=== PATIENT | female | born 1935 | race Caucasian/White ===

== ENCOUNTER 2018-12-01 09:50 | Emergency (ER) | payer MEDICARE, OTHER ==
[2018-12-01] MEDS ORDERED: Sodium Chloride 0.9% 10 ML Syringe FLUSH PRN (10:10)
--- NOTE | 2018-12-01 10:11 | EDM.PDOC ---
ED HPI GENERAL MEDICAL PROBLEM - General Chief Complaint: Chest Pain Stated Complaint: CHEST PAIN Time Seen by Provider: 12/01/18 10:01 Source of Information: Reports: Patient, RN, RN Notes Reviewed History Limitations: Reports: No Limitations - History of Present Illness INITIAL COMMENTS - FREE TEXT/NARRATIVE: Patient presents to the ED at [facility] complaining of epigastric pain. She states the pain started last . Patient states her symptoms seem to get worse after she used some mouthwash yesterday. The pain has progressively gotten worse since last night. She denies any radiation of the pain. She does not have any SOB. Denies any N/V/D. No focal neurological complaints. She has not taken any medications at home for her symptoms. She states the pain feels like heartburn/gastritis. She was seen in the clinic yesterday and thought to be having some sort of allergy reaction. She was not treated in the clinic nor did she have any workup. Onset Date: 11/26/18 Mid-Sternal Chest Pain Score (Numeric/FACES): 10 - Related Data Allergies Allergy/AdvReac Type Severity Reaction Status Date / Time cefuroxime axetil Allergy Other Verified 12/01/18 10:17 [From Ceftin] gemfibrozil [From Lopid] Allergy Other Verified 12/01/18 10:17 Penicillins Allergy Other Verified 12/01/18 10:17 simvastatin [From Zocor] Allergy Other Verified 12/01/18 10:17 tetanus toxoid, adsorbed Allergy Other Verified 12/01/18 10:17 Home Meds: Home Meds Acetaminophen with Codeine [Tylenol with Codeine #3 Tablet] 1 - 2 tab PO DAILY PRN 03/23/15 [History] Cholecalciferol (Vitamin D3) [Vitamin D3] 2,000 units PO DAILY 03/23/15 [History ] Fish Oil/[place]-3 Fatty Acids [Fish Oil 1,000 MG] 1,000 mg PO DAILY 03/23/15 [ History] Hydrochlorothiazide 1 tab PO DAILY 03/23/15 [History] Multivitamin with Minerals [Multiple Vitamin] 1 tab PO DAILY 03/23/15 [History] Naproxen Sodium [Aleve] 1 tab PO DAILY PRN 03/23/15 [History] Propranolol [Inderal] 1 tab PO BID 03/23/15 [History] amLODIPine [Norvasc] 1.5 tab PO DAILY 03/23/15 [History] glyBURIDE/Metformin HCl [Glucovance 5-500 MG] 2 tab PO BID 03/23/15 [History] Aspirin [Halfprin] 81 mg PO BRK 03/29/15 [History] Past Medical History Other HEENT History: VITREOUS ETACHMENT, DRY EYE, MYOPIA, PRESBYOPIA Cardiovascular History: Reports: Hypertension Other Cardiovascular History: SYSTOLIC MURMUR, VARICOSE VIENS Other Gastrointestinal History: ABDOMINAL PAIN Other Genitourinary History: PROTEINURIA Other Musculoskeletal History: RT LEG PAIN, WRIST PAIN, GANGLION TENDON SHEATH OF RIGHT INDEX FINGER, CARPAL TUNNEL SYNDROME Other Endocrine/Metabolic History: MALAISE AND FATIGUE Other Dermatologic History: DERMATOCHALASIS, ACTINIC KERATOSIS - Past Surgical History HEENT Surgical History: Reports: Cataract Surgery ED ROS GENERAL - Review of Systems Review Of Systems: See Below Constitutional: Denies: Fever, Chills Respiratory: Denies: Shortness of Breath, Cough Cardiovascular: Reports: Chest Pain. Denies: Edema, Palpitations GI/Abdominal: Reports: No Symptoms Skin: Reports: No Symptoms Neurological: Reports: No Symptoms ED EXAM, GENERAL - Physical Exam Exam: See Below Exam Limited By: No Limitations General Appearance: Alert, No Apparent Distress Respiratory/Chest: No Respiratory Distress, Lungs Clear, Normal Breath Sounds Cardiovascular: Normal Peripheral Pulses, Regular Rate, Rhythm Peripheral Pulses: 2+: Radial (L), Radial (R) GI/Abdominal: Normal Bowel Sounds, Soft, Non-Tender Neurological: Alert, Oriented Skin Exam: Warm, Dry, Intact, Normal Color EKG INTERPRETATION EKG Date: 12/01/18 Time: 09:51 Rhythm: NSR Rate (Beats/Min): 87 [place]: Normal P-Wave: Present QRS: LBBB ST-T: Normal QT: Normal HI/PQ Interval: 0.20 Comparison: Change From Previous EKG EKG Interpretation Comments: 1. Sinus Rhythm 2. LBBB Course - Vital Signs Last Recorded V/S: Last Vital Signs Temp 35.5 C 12/01/18 09:55 Pulse 83 12/01/18 09:55 Resp 18 12/01/18 09:55 BP 168/87 H 12/01/18 11:03 Pulse Ox 99 12/01/18 09:55 - Orders/Labs/Meds Orders: Active Orders 24 hr Category Date Time Status EKG 12 Lead [EKG Documentation Completion] [RC] STAT Care 12/01/18 10:10 Active Sodium Chloride 0.9% [Saline Flush] Med 12/01/18 10:10 Active 10 ml FLUSH ASDIRECTED PRN Peripheral IV Insertion Adult [OM.PC] Routine Oth 12/01/18 10:10 Ordered Medication Orders Sodium Chloride (Saline Flush) 10 ml FLUSH ASDIRECTED PRN PRN Reason: Keep Vein Open Labs: Laboratory Tests 12/01/18 12/01/18 12/01/18 Range/Units 10:12 10:12 10:20 WBC 7.8 (4.0-10.0) x10^3/uL RBC 4.25 (4.00-5.50) x10^6/uL Hgb 12.6 (12.0-16.0) g/dL Hct 39.1 (33.0-47.0) % MCV 92.0 (78.0-93.0) fL MCH 29.6 (26.0-32.0) pg MCHC 32.2 (32.0-36.0) g/dL RDW Coeff of Johnathan 12.9 (10.0-15.0) % Plt Count 221 (130-400) x10^3/uL Neut % (Auto) 64.3 (50.0-80.0) % Lymph % (Auto) 23.7 L (25.0-50.0) % [place] % (Auto) 10.7 (2.0-11.0) % Eos % (Auto) 1.0 (0.0-4.0) % Baso % (Auto) 0.3 (0.2-1.2) % Sodium 136 (136-145) mmol/L Potassium 4.1 (3.5-5.1) mmol/L Chloride 98 (98-107) mmol/L Carbon Dioxide 23 (21-32) mmol/L Anion Gap 19.1 (10-20) mmol/L BUN 27 H (7-18) mg/dL Creatinine 1.2 H (0.55-1.02) mg/dL Est Cr Clr Drug Dosing 30.67 mL/min Estimated GFR (MDRD) 43 Glucose 274 H (74-106) mg/dL Calcium 9.1 (8.5-10.1) mg/dL Corrected Calcium 9.66 (8.5-10.1) mg/dL Magnesium 1.4 L (1.8-2.4) mg/dL Total Bilirubin 0.8 (0.2-1.0) mg/dL AST 27 (15-37) U/L ALT 17 (14-59) U/L Alkaline Phosphatase 65 (46-116) U/L Creatine Kinase 134 (26-192) U/L POC Troponin I 1.05 H* (0.00-0.08) ng/mL Total Protein 7.6 (6.4-8.2) g/dL Albumin 3.3 L (3.4-5.0) g/dL Globulin 4.3 Albumin/Globulin Ratio 0.77 POC Result Comm See comment Meds: Medications Generic Name Dose Route Start Last Admin Trade Name Freq PRN Reason Stop Dose Admin Sodium Chloride 10 ml 12/01/18 10:10 Saline Flush FLUSH ASDIRECTED PRN Keep Vein Open Discontinued Medications Generic Name Dose Route Start Last Admin Trade Name Freq PRN Reason Stop Dose Admin Al Hydroxide/Mg Hydroxide 30 ml 12/01/18 10:10 12/01/18 10:31 Gi Cocktail PO 12/01/18 10:11 30 ml ONETIME ONE Administration Aspirin 324 mg 12/01/18 10:50 12/01/18 10:45 Aspirin PO 12/01/18 10:51 324 mg ONETIME ONE Administration Clopidogrel Bisulfate 600 mg 12/01/18 10:49 12/01/18 11:04 Plavix PO 12/01/18 10:50 600 mg ONETIME ONE Administration Heparin Sodium (Porcine) 4,000 units 12/01/18 10:47 12/01/18 11:04 Heparin Sodium IVPUSH 12/01/18 10:48 4,000 units ONETIME ONE Administration Morphine Sulfate 2 mg 12/01/18 10:49 12/01/18 11:06 Morphine IVPUSH 12/01/18 10:50 Not Given ONETIME ONE Nitroglycerin 0.4 mg 12/01/18 10:48 12/01/18 11:03 Nitrostat SL 12/01/18 10:49 0.4 mg ONETIME ONE Administration Nitroglycerin 0.4 mg 12/01/18 10:48 12/01/18 10:48 Nitrostat SL 12/01/18 10:49 0.4 mg ONETIME ONE Administration Departure - Departure Time of Disposition: 11:10 Disposition: DC/Tfer to Acute Hospital 02 Reason for Transfer *Q: Other Condition: Good Clinical Impression: ACS (acute coronary syndrome) Forms: Interfacility Transfer [facility] ED Communication - ED Communication Date/Time Date: 12/01/18 Time Called: 10:41 - Discussed Case With (1) Discussed Case With (1): Admitting Provider (Dr. Dawson, Cardiology) - Conversation Summary Admitting Provider Agreed to Patient's Admission: Yes Patient Aware of Amendments fo Care Plan: Yes - Problem List Review Problem List Initiated/Reviewed/Updated: Yes - My Orders Last 24 Hours: My Active Orders 12/01/18 10:10 EKG 12 Lead [EKG Documentation Completion] [RC] STAT Sodium Chloride 0.9% [Saline Flush] 10 ml FLUSH ASDIRECTED PRN Peripheral IV Insertion Adult [OM.PC] Routine - Assessment/Plan Last 24 Hours: My Active Orders 12/01/18 10:10 EKG 12 Lead [EKG Documentation Completion] [RC] STAT Sodium Chloride 0.9% [Saline Flush] 10 ml FLUSH ASDIRECTED PRN Peripheral IV Insertion Adult [OM.PC] Routine Assessment:: ACS Plan: Case discussed with Dr. Dawson, Cardiology. It if felt this is not a STEMI but more ACS. Given symptoms and positive Troponin, the patient will be transferred to for further workup and treatment. Patient will be sent ALS ground. Patient agrees with transfer and wishes to proceed.
[2018-12-01] MEDS: GI Cocktail Oral Solution 30 ML PO ONE (10:31)
[2018-12-01] MEDS: Nitroglycerin 0.4 MG Tab.SL SL ONE ×2 (10:42→10:48)
--- NOTE | 2018-12-01 10:42 | CR ---
[id number] RAD/RAD Chest PA And Lateral EXAM: RAD Chest PA And Lateral INDICATION: CHEST PAIN. COMPARISON: None. DISCUSSION: Cardiomediastinal silhouette is normal in size and contour. No infiltrate, pneumothorax, or edema. Small amount of fluid along the right minor fissure. Generalized osseous demineralization IMPRESSION: No acute cardiopulmonary abnormality. Giovanny Schmidt DO 12/01/18 1041 Thank you for allowing us to participate in the care of your patient.
[2018-12-01 10:43] LABS: ANION GAP 19.1 mmol/L (10-20)
[2018-12-01] MEDS: Aspirin 81 MG Tab.Chew PO ONE (10:45)
[2018-12-01] MEDS: Clopidogrel 75 MG Tab PO ONE (11:04)
[2018-12-01] MEDS: Heparin Sodium 5,000 Units/ML Vial IVPUSH ONE (11:04)
[2018-12-01] MEDS: Morphine 2 MG/ML Syringe IVPUSH ONE (11:06)
[2018-12-01 12:16] VITALS: BP 149/72
== END 2018-12-01 11:15 | disposition short-term general hospital (02) ==
LOC: VM.ED 09:50
DX: I24.9 Acute ischemic heart disease, unspecified (principal); Z88.1 Allergy status to other antibiotic agents; Z88.0 Allergy status to penicillin; Z88.7 Allergy status to serum and vaccine; Z79.899 Other long term (current) drug therapy
CPT/HCPCS: 36415; 71046; 80053; 82550; 83735; 84484; 85025; 93005; 96374; 99285; A9270; J1644

== ENCOUNTER 2018-12-12 12:10 | Emergency (ER) | payer MEDICARE, OTHER ==
[2018-12-12] MEDS ORDERED: Ondansetron 4 MG/2 ML SDV IVPUSH ONE ×2 (12:36→16:01)
--- NOTE | 2018-12-12 12:42 | EDM.PDOC ---
ED HPI GENERAL MEDICAL PROBLEM - General Chief Complaint: Chest Pain Stated Complaint: CHEST PAIN Time Seen by Provider: 12/12/18 12:33 Source of Information: Reports: Patient, EMS History Limitations: Reports: No Limitations - History of Present Illness INITIAL COMMENTS - FREE TEXT/NARRATIVE: Patient was initially seen by EMS earlier today for complaints of nausea, chest pain but had a bowel movement which resolved the pain. She refused to come into the ER at that time. Later this morning she called again with chest pain. She reports that the chest pain was only when she was vomiting. Then it was gone. She denies chest pain or pressure at this time. She denies current pain. Was seen in [place] last week and stents were placed. On Brillinta. Denies headache, blood in urine or stool. She does endorse chest pain when actively vomiting. History of DM II. Medicine changes made in [place]. 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 Onset: Today, Unknown/Unsure Duration: Intermittent Location: Reports: Chest Quality: Reports: Ache Severity: Moderate Improves with: Reports: None Worsens with: Reports: None Context: Reports: Activity Associated Symptoms: Reports: Chest Pain - Related Data Allergies Allergy/AdvReac Type Severity Reaction Status Date / Time cefuroxime axetil Allergy Other Verified 12/01/18 10:17 [From Ceftin] gemfibrozil [From Lopid] Allergy Other Verified 12/01/18 10:17 Penicillins Allergy Other Verified 12/01/18 10:17 simvastatin [From Zocor] Allergy Other Verified 12/01/18 10:17 tetanus toxoid, adsorbed Allergy Other Verified 12/01/18 10:17 Home Meds: Home Meds Acetaminophen with Codeine [Tylenol with Codeine #3 Tablet] 1 - 2 tab PO DAILY PRN 03/23/15 [History] Cholecalciferol (Vitamin D3) [Vitamin D3] 2,000 units PO DAILY 03/23/15 [History ] Fish Oil/[place]-3 Fatty Acids [Fish Oil 1,000 MG] 1,000 mg PO DAILY 03/23/15 [ History] Multivitamin with Minerals [Multiple Vitamin] 1 tab PO DAILY 03/23/15 [History] Aspirin [Halfprin] 81 mg PO BRK 03/29/15 [History] Carvedilol 6.25 mg PO BID 12/12/18 [History] Furosemide 60 mg PO DAILY 12/12/18 [History] Losartan Potassium 25 mg PO DAILY 12/12/18 [History] Nitroglycerin 0.4 mg PO ASDIRECTED PRN 12/12/18 [History] Omeprazole 20 mg PO DAILY 12/12/18 [History] Rosuvastatin Calcium 20 mg PO BEDTIME 12/12/18 [History] Ticagrelor [Brilinta] 90 mg PO BID 12/12/18 [History] metFORMIN HCl [Metformin HCl ER] 500 mg PO DAILY 12/12/18 [History] Past Medical History Other HEENT History: VITREOUS ETACHMENT, DRY EYE, MYOPIA, PRESBYOPIA Cardiovascular History: Reports: Hypertension Other Cardiovascular History: SYSTOLIC MURMUR, VARICOSE VIENS Other Gastrointestinal History: ABDOMINAL PAIN Other Genitourinary History: PROTEINURIA Other Musculoskeletal History: RT LEG PAIN, WRIST PAIN, GANGLION TENDON SHEATH OF RIGHT INDEX FINGER, CARPAL TUNNEL SYNDROME Other Endocrine/Metabolic History: MALAISE AND FATIGUE Other Dermatologic History: DERMATOCHALASIS, ACTINIC KERATOSIS - Past Surgical History HEENT Surgical History: Reports: Cataract Surgery ED ROS GENERAL - Review of Systems Review Of Systems: See Below Constitutional: Reports: No Symptoms HEENT: Reports: No Symptoms Respiratory: Reports: No Symptoms Cardiovascular: Reports: No Symptoms Endocrine: Reports: No Symptoms GI/Abdominal: Reports: No Symptoms : Reports: No Symptoms Musculoskeletal: Reports: No Symptoms Skin: Reports: No Symptoms Neurological: Reports: No Symptoms Psychiatric: Reports: No Symptoms Hematologic/Lymphatic: Reports: No Symptoms Immunologic: Reports: No Symptoms ED EXAM, GENERAL - Physical Exam Exam: See Below Exam Limited By: No Limitations General Appearance: Alert, WD/WN, No Apparent Distress Eye Exam: Bilateral Eye: EOMI, Normal Inspection, PERRL Ears: Normal TMs Throat/Mouth: Normal Inspection, Normal Lips, Normal Teeth, Normal Gums, Normal Oropharynx, Normal Voice, No Airway Compromise Head: Atraumatic, Normocephalic Neck: Normal Inspection, Supple, Non-Tender, Full Range of Motion Respiratory/Chest: No Respiratory Distress, Lungs Clear, Normal Breath Sounds, No Accessory Muscle Use, Chest Non-Tender Cardiovascular: Normal Peripheral Pulses, Regular Rate, Rhythm, No Edema, No Gallop, No JVD, No Rub, Systolic Murmur Peripheral Pulses: 2+: Posterior Tibial (L), Posterior Tibial (R), Dorsalis Pedis (L), Dorsalis Pedis (R) GI/Abdominal: Normal Bowel Sounds, Soft, Non-Tender, No Organomegaly, No Distention, No Abnormal Bruit, No Mass Back Exam: Normal Inspection, Full Range of Motion, NT Extremities: Normal Inspection, Normal Range of Motion, Non-Tender, Normal Capillary Refill, No Pedal Edema Neurological: Alert, Oriented, CN II-XII Intact, Normal Cognition, Normal Gait, Normal Reflexes, No Motor/Sensory Deficits Psychiatric: Normal Affect, Normal Mood Skin Exam: Warm, Dry, Intact, Normal Color, No Rash Lymphatic: No Adenopathy Course - Vital Signs Last Recorded V/S: Last Vital Signs Temp 36.9 C 12/12/18 12:10 Pulse 93 12/12/18 12:55 Resp 15 12/12/18 12:55 BP 119/50 L 12/12/18 12:55 Pulse Ox 95 12/12/18 12:55 - Orders/Labs/Meds Orders: Active Orders 24 hr Category Date Time Status EKG Documentation Completion [RC] STAT Care 12/12/18 12:36 Active CULTURE URINE [RM] Stat Lab 12/12/18 14:12 Ordered Labs: Laboratory Tests 12/12/18 12/12/18 12/12/18 Range/Units 12:50 12:50 12:50 WBC 13.3 H (4.0-10.0) x10^3/uL RBC 3.17 L (4.00-5.50) x10^6/uL Hgb 9.3 L D (12.0-16.0) g/dL Hct 29.8 L (33.0-47.0) % MCV 94.0 H (78.0-93.0) fL MCH 29.3 (26.0-32.0) pg MCHC 31.2 L (32.0-36.0) g/dL RDW Coeff of Johnathan 15.2 H (10.0-15.0) % Plt Count 325 D (130-400) x10^3/uL PT 10.7 (9.6-11.4) SEC INR 1.0 L (2.0-3.5) APTT 21.8 (21.3-33.5) SEC Sodium 136 (136-145) mmol/L Potassium 3.7 (3.5-5.1) mmol/L Chloride 95 L (98-107) mmol/L Carbon Dioxide 26 (21-32) mmol/L Anion Gap 18.7 (10-20) mmol/L BUN 23 H (7-18) mg/dL Creatinine 1.3 H (0.55-1.02) mg/dL Est Cr Clr Drug Dosing TNP Estimated GFR (MDRD) 39 Glucose 288 H (74-106) mg/dL Calcium 9.0 (8.5-10.1) mg/dL Corrected Calcium 9.96 (8.5-10.1) mg/dL Phosphorus 2.8 (2.6-4.7) mg/dL Magnesium 1.7 L (1.8-2.4) mg/dL Total Bilirubin 3.5 H (0.2-1.0) mg/dL AST 123 H (15-37) U/L ALT 64 H (14-59) U/L Alkaline Phosphatase 344 H (46-116) U/L Troponin I 0.335 H* (<=0.056) ng/mL Total Protein 7.6 (6.4-8.2) g/dL Albumin 2.8 L (3.4-5.0) g/dL Globulin 4.8 Albumin/Globulin Ratio 0.58 Urine Color (YELLOW) Urine Appearance (CLEAR) Urine pH (5.0-8.0) Ur Specific [place] Urine Protein (NEGATIVE) mg/dL Urine Glucose (UA) (NEGATIVE) mg/dL Urine Ketones (NEGATIVE) mg/dL Urine Occult Blood (NEGATIVE) Urine Nitrite (NEGATIVE) Urine Bilirubin (NEGATIVE) Urine Urobilinogen (0.2) EU/dL Ur Leukocyte Esterase (NEGATIVE) Urine RBC (NOT SEEN) /HPF Urine WBC (NOT SEEN) /HPF Ur Squamous Epith Cells (NEGATIVE) /HPF Urine Bacteria (NEGATIVE) /HPF Urine Mucus (NEGATIVE) /LPF 12/12/18 Range/Units 12:55 WBC (4.0-10.0) x10^3/uL RBC (4.00-5.50) x10^6/uL Hgb (12.0-16.0) g/dL Hct (33.0-47.0) % MCV (78.0-93.0) fL MCH (26.0-32.0) pg MCHC (32.0-36.0) g/dL RDW Coeff of Johnathan (10.0-15.0) % Plt Count (130-400) x10^3/uL PT (9.6-11.4) SEC INR (2.0-3.5) APTT (21.3-33.5) SEC Sodium (136-145) mmol/L Potassium (3.5-5.1) mmol/L Chloride (98-107) mmol/L Carbon Dioxide (21-32) mmol/L Anion Gap (10-20) mmol/L BUN (7-18) mg/dL Creatinine (0.55-1.02) mg/dL Est Cr Clr Drug Dosing Estimated GFR (MDRD) Glucose (74-106) mg/dL Calcium (8.5-10.1) mg/dL Corrected Calcium (8.5-10.1) mg/dL Phosphorus (2.6-4.7) mg/dL Magnesium (1.8-2.4) mg/dL Total Bilirubin (0.2-1.0) mg/dL AST (15-37) U/L ALT (14-59) U/L Alkaline Phosphatase (46-116) U/L Troponin I (<=0.056) ng/mL Total Protein (6.4-8.2) g/dL Albumin (3.4-5.0) g/dL Globulin Albumin/Globulin Ratio Urine Color Yellow (YELLOW) Urine Appearance Slightly cloudy H (CLEAR) Urine pH 5.5 (5.0-8.0) Ur Specific [place] 1.015 Urine Protein Negative (NEGATIVE) mg/dL Urine Glucose (UA) Negative (NEGATIVE) mg/dL Urine Ketones Negative (NEGATIVE) mg/dL Urine Occult Blood Negative (NEGATIVE) Urine Nitrite Negative (NEGATIVE) Urine Bilirubin Negative (NEGATIVE) Urine Urobilinogen 1.0 (0.2) EU/dL Ur Leukocyte Esterase Trace H (NEGATIVE) Urine RBC 0-5 (NOT SEEN) /HPF Urine WBC 5-10 H (NOT SEEN) /HPF Ur Squamous Epith Cells Few H (NEGATIVE) /HPF Urine Bacteria Few H (NEGATIVE) /HPF Urine Mucus Rare H (NEGATIVE) /LPF Meds: Medications Discontinued Medications Generic Name Dose Route Start Last Admin Trade Name Freq PRN Reason Stop Dose Admin Ondansetron HCl 4 mg 12/12/18 12:36 12/12/18 12:51 Zofran IVPUSH 12/12/18 12:37 4 mg ONETIME ONE Administration Departure - Departure Time of Disposition: 17:30 Disposition: DC/Tfer to Acute Hospital 02 Reason for Transfer *Q: Other Condition: Fair Clinical Impression: Elevated liver enzymes, Elevated troponin Referrals: Freda Enciso MD [Primary Care Provider] - Forms: ED Department Discharge, Interfacility Transfer [facility] ED Communication - ED Communication Date/Time Date: 12/12/18 Time Called: 15:09 - Discussed Case With (1) Discussed Case With (1): Admitting Provider (Dr. Falcon given report and he will accept patient. Await room placement.) - Problem List & Annotations (1) Elevated liver enzymes SNOMED Code(s): 801393558 Code(s): R74.8 - ABNORMAL LEVELS OF OTHER SERUM ENZYMES Status: Acute Priority: Medium Current Visit: Yes (2) Elevated troponin SNOMED Code(s): 846379423, 029331081, 296883572 Code(s): R74.8 - ABNORMAL LEVELS OF OTHER SERUM ENZYMES Status: Acute Priority: Medium Current Visit: Yes - Problem List Review Problem List Initiated/Reviewed/Updated: Yes - My Orders Last 24 Hours: My Active Orders 12/12/18 12:36 EKG Documentation Completion [RC] STAT 12/12/18 14:12 CULTURE URINE [RM] Stat - Assessment/Plan Last 24 Hours: My Active Orders 12/12/18 12:36 EKG Documentation Completion [RC] STAT 12/12/18 14:12 CULTURE URINE [RM] Stat
[2018-12-12 13:40] LABS: CHLORIDE,CL 95 mmol/L (98-107); SODIUM,NA 136 mmol/L (136-145)
[2018-12-12 13:41] LABS: ANION GAP 18.7 mmol/L (10-20)
--- NOTE | 2018-12-12 13:49 | CR ---
[id number] RAD/RAD Chest PA or AP 1V EXAM: SINGLE VIEW CHEST. INDICATION: CHEST PAIN COMPARISON: CORRELATION IS MADE WITH THE EXAM OF DECEMBER 01, 2018. FINDINGS: There is minimal right perihilar discoid atelectasis. The lungs otherwise are clear. The cardiomediastinal contour is stable. IMPRESSION: NO NEW FINDINGS. Mack Roque MD 12/12/18 [id number] Thank you for allowing us to participate in the care of your patient.
[2018-12-12 16:43] VITALS: BP 132/78
[2018-12-12] MEDS ORDERED: Promethazine 12.5 MG in Sodium Chloride 0.9% 100 ML IV ONE (17:28)
== END 2018-12-12 17:39 | disposition short-term general hospital (02) ==
LOC: VM.ED 12:10
DX: R74.8 Abnormal levels of other serum enzymes (principal); R79.89 Other specified abnormal findings of blood chemistry; Z79.899 Other long term (current) drug therapy; Z88.0 Allergy status to penicillin; Z88.1 Allergy status to other antibiotic agents; Z88.7 Allergy status to serum and vaccine
CPT/HCPCS: 36415; 71045; 80053; 81001; 83735; 84100; 84484; 85027; 85610; 85730; 87086; 93005; 96374; 96375; 96376; 99285-25; J2405; J2550; J7050

== ENCOUNTER 2019-05-06 14:20 | Emergency (ER) | payer MEDICARE, OTHER ==
[2019-05-06] MEDS ORDERED: Sodium Chloride 0.9% 10 ML Syringe FLUSH PRN (14:32)
[2019-05-06] MEDS ORDERED: Sodium Chloride 0.9% 1,000 ML IV ONE (14:37)
[2019-05-06] MEDS ORDERED: Ondansetron 4 MG/2 ML SDV IVPUSH ONE (14:39)
--- NOTE | 2019-05-06 15:09 | EDM.PDOC ---
ED HPI GENERAL MEDICAL PROBLEM - General Chief Complaint: Fever Stated Complaint: ER Time Seen by Provider: 05/06/19 14:20 Source of Information: Reports: Patient, Family - History of Present Illness INITIAL COMMENTS - FREE TEXT/NARRATIVE: Pt. presents to ER with complaints of weakness, nausea, lightheadedness and fever this afternoon. 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 Pt. 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 She received her antibiotics today. Pt. states that she started feeling weak, lightheaded, and chilled after lunch today. Denies any cough. No dysuria. Denies any skin rashes. No chest pain or shortness of breath. Pt. has a PICC line. She was scheduled to have an appointment with podiatry later this afternoon. Onset: Today Onset Date: 05/06/19 Location: Reports: Lower Extremity, Left, Lower Extremity, Right Quality: Reports: Other (denies any new pain to extremities) Associated Symptoms: Reports: Fever/Chills, Malaise, Nausea/Vomiting - Related Data Allergies Allergy/AdvReac Type Severity Reaction Status Date / Time shellfish derived Allergy Severe Anaphylactic Verified 05/05/19 11:03 Shock cefuroxime axetil Allergy Other Verified 05/05/19 11:03 [From Ceftin] Cephalosporins Allergy Other Verified 05/05/19 11:03 gemfibrozil [From Lopid] Allergy Other Verified 05/05/19 11:03 Penicillins Allergy Other Verified 05/05/19 11:03 simvastatin [From Zocor] Allergy Other Verified 05/05/19 11:03 tetanus toxoid, adsorbed Allergy Other Verified 05/05/19 11:03 metformin AdvReac Renal Verified 05/05/19 11:03 Insufficiency morphine AdvReac Hypotension Verified 05/05/19 11:03 Home Meds: Home Meds Cholecalciferol (Vitamin D3) [Vitamin D3] 2,000 units PO DAILY 03/23/15 [History ] Multivitamin with Minerals [Multiple Vitamin] 1 tab PO DAILY 03/23/15 [History] Aspirin [Halfprin] 81 mg PO BRK 03/29/15 [History] Furosemide 40 mg PO DAILY 12/12/18 [History] Losartan Potassium 25 mg PO DAILY 12/12/18 [History] Nitroglycerin 0.4 mg PO ASDIRECTED PRN 12/12/18 [History] Omeprazole 20 mg PO DAILY 12/12/18 [History] Ticagrelor [Brilinta] 90 mg PO BID 12/12/18 [History] Acetaminophen with Codeine [Tylenol with Codeine #3 Tablet] 1 each PO DAILY PRN 02/16/19 [History] Polyethylene Glycol 3350 [MiraLAX] 17 gm PO DAILY PRN 02/16/19 [History] Pravastatin [Pravachol] 10 mg PO DAILY 02/16/19 [History] Spironolactone [Aldactone] 12.5 mg PO DAILY 02/16/19 [History] Ubidecarenone [Co Q-10] 200 mg PO BEDTIME 02/16/19 [History] glipiZIDE [Glipizide ER] 10 mg PO DAILY 02/16/19 [History] Ciprofloxacin HCl 250 mg BID 04/10/19 [History] Metoprolol Succinate [Toprol XL 50mg] 50 mg DAILY 04/10/19 [History] Propylene Glycol/Peg 400 [Systane 0.3-0.4% Eye Drops] 1 drop Q4H PRN 04/10/19 [ History] oxyCODONE HCl/Acetaminophen [Oxycodone-Acetaminophen 5-325] 1 tab QID PRN [History] Past Medical History HEENT History: Reports: Cataract, Other (See Below) Other HEENT History: VITREOUS DETACHMENT, DRY EYE, MYOPIA, PRESBYOPIA. pseudophakia Cardiovascular History: Reports: CAD, Heart Failure, Hypertension Other Cardiovascular History: SYSTOLIC MURMUR, VARICOSE VIENS. non-rheumatic mitral valve stenosis. cardiac LV ejection fraction 10-20%. NSTEMI Gastrointestinal History: Reports: Cholelithiasis, Colon Polyp Other Gastrointestinal History: ABDOMINAL PAIN. cholecystitis. dyspepsia Genitourinary History: Reports: Renal Disease Other Genitourinary History: PROTEINURIA. midline cystocele Musculoskeletal History: Reports: Back Pain, Chronic, Fibromyalgia, Gout Other Musculoskeletal History: RT LEG PAIN, WRIST PAIN, GANGLION TENDON SHEATH OF RIGHT INDEX FINGER, CARPAL TUNNEL SYNDROME. LIPOM A LEFT LOWER EXTREMITY. CHRONIC PAIN R FOOT. LEFT WRIST PAIN. L HIP PAIN Psychiatric History: Reports: Other (See Below) Other Psychiatric History: COGNITIVE DYSFUNCTION Endocrine/Metabolic History: Reports: Other (See Below) Other Endocrine/Metabolic History: MALAISE AND FATIGUE. DIABETES MELLITUS. HYPOMAGNESEMIA Hematologic History: Reports: Anemia Oncologic (Cancer) History: Reports: Squamous Cell Carcinoma Other Dermatologic History: DERMATOCHALASIS, ACTINIC KERATOSIS - Past Surgical History HEENT Surgical History: Reports: Adenoidectomy, Cataract Surgery, Tonsillectomy GI Surgical History: Reports: ERCP Female Surgical History: Reports: Breast Biopsy, Hysterectomy, Other (See Below) Social & Family History - Caffeine Use Caffeine Use: Reports: Coffee ED ROS GENERAL - Review of Systems Review Of Systems: See Below Constitutional: Reports: No Symptoms HEENT: Reports: No Symptoms Respiratory: Reports: No Symptoms Cardiovascular: Reports: No Symptoms Endocrine: Reports: No Symptoms GI/Abdominal: Reports: No Symptoms : Reports: No Symptoms Musculoskeletal: Reports: Other (see above) Skin: Reports: No Symptoms Neurological: Reports: No Symptoms Psychiatric: Reports: Anxiety Hematologic/Lymphatic: Reports: No Symptoms Immunologic: Reports: No Symptoms ED EXAM, GENERAL - Physical Exam Exam: See Below Exam Limited By: No Limitations General Appearance: Alert, WD/WN, No Apparent Distress Throat/Mouth: Normal Inspection, Normal Lips, Normal Gums, Normal Oropharynx, Normal Voice, No Airway Compromise Head: Atraumatic, Normocephalic Neck: Normal Inspection, Supple, Non-Tender, Full Range of Motion Respiratory/Chest: No Respiratory Distress, No Accessory Muscle Use, Other ( diminished in the bases) Cardiovascular: Normal Peripheral Pulses, Regular Rate, Rhythm, No Edema, No JVD , No Murmur, No Rub Peripheral Pulses: 0: Posterior Tibial (L), Posterior Tibial (R), Dorsalis Pedis (L), Dorsalis Pedis (R) GI/Abdominal: Normal Bowel Sounds, Soft, Non-Tender, No Organomegaly, No Distention, No Mass (Female) Exam: Deferred Rectal (Female) Exam: Deferred Back Exam: Normal Inspection, Full Range of Motion Extremities: Other (R great toe is necrotic with area of necrosis to bottom of foot. Area of necrosis to L great toe. Pitting edema noted to L lower extremity erythema to L lower extremity. Unable to palpate posterior tibial or dorsalis pedis pulses bilaterally.) Neurological: Alert, Oriented, CN II-XII Intact, Normal Cognition, Normal Gait, Normal Reflexes, No Motor/Sensory Deficits Psychiatric: Normal Affect, Normal Mood, Anxious, Tearful Skin Exam: Warm, Dry, Intact, Normal Color, No Rash Course - Vital Signs Last Recorded V/S: Last Vital Signs Temp 38.0 C 05/06/19 14:20 Pulse 97 05/06/19 14:20 Resp 24 H 05/06/19 14:20 BP 156/65 H 05/06/19 14:20 Pulse Ox 89 L 05/06/19 14:20 - Orders/Labs/Meds Orders: Active Orders 24 hr Category Date Time Status Central Line Assessment [RC] DAILY Care 05/06/19 14:39 Active Implanted Port Access [RC] ASDIRECTED Care 05/06/19 14:35 Inactive CULTURE BLOOD [BC] Stat Lab 05/06/19 14:34 Ordered CULTURE BLOOD [BC] Stat Lab 05/06/19 14:34 Ordered Levofloxacin/Dextrose 5%-Water [Levaquin in D5W 750 MG/ Med 05/06/19 15:26 Ordered 150 ML] 750 mg Premix Bag 1 bag IV ONETIME Sodium Chloride 0.9% [Normal Saline] 1,000 ml Med 05/06/19 14:37 Active IV .BOLUS Sodium Chloride 0.9% [Saline Flush] Med 05/06/19 14:32 Active 10 ml FLUSH ASDIRECTED PRN Blood Culture x2 Reflex Set [OM.PC] Stat Oth 05/06/19 14:34 Ordered Medication Orders Sodium Chloride (Normal Saline) 1,000 mls @ 125 mls/hr IV .BOLUS ONE Stop: 05/06/19 22:36 Last Admin: 05/06/19 14:35 Dose: 125 mls/hr Levofloxacin/Dextrose 750 mg/ (Premix) 150 mls @ 100 mls/hr IV ONETIME ONE Stop: 05/06/19 16:55 Last Admin: 05/06/19 15:45 Dose: 100 mls/hr Sodium Chloride (Saline Flush) 10 ml FLUSH ASDIRECTED PRN PRN Reason: Keep Vein Open Labs: Laboratory Tests 05/06/19 05/06/19 05/06/19 Range/Units 14:33 14:54 14:54 WBC 11.7 H (4.0-10.0) x10^3/uL RBC 3.65 L (4.00-5.50) x10^6/uL Hgb 10.5 L (12.0-16.0) g/dL Hct 34.5 (33.0-47.0) % MCV 94.5 H (78.0-93.0) fL MCH 28.8 (26.0-32.0) pg MCHC 30.4 L (32.0-36.0) g/dL RDW Coeff of Johnathan 14.8 (10.0-15.0) % Plt Count 353 (130-400) x10^3/uL Neut % (Auto) 95.8 H (50.0-80.0) % Lymph % (Auto) 2.2 L (25.0-50.0) % [place] % (Auto) 1.4 L (2.0-11.0) % Eos % (Auto) 0.4 (0.0-4.0) % Baso % (Auto) 0.2 (0.2-1.2) % PT 10.7 (10.0-12.8) SEC INR 0.9 L (2.0-3.5) POC Sodium (138-146) mmol/L Sodium (136-145) mmol/L POC Potassium (3.5-4.9) mmol/L Potassium (3.5-5.1) mmol/L POC Chloride (98-109) mmol/L Chloride (98-107) mmol/L Carbon Dioxide (21-32) mmol/L POC Total CO2 (24-29) mmol/L Anion Gap (10-20) mmol/L POC Anion Gap POC BUN (8-26) mg/dL BUN (7-18) mg/dL Creatinine (0.55-1.02) mg/dL POC Creatinine (0.6-1.3) mg/dL Est Cr Clr Drug Dosing mL/min Estimated GFR (MDRD) Glucose (74-106) mg/dL POC Glucose (70-105) mg/dL Lactic Acid (0.4-2.0) mmol/L Calcium (8.5-10.1) mg/dL Corrected Calcium (8.5-10.1) mg/dL Phosphorus (2.6-4.7) mg/dL Magnesium (1.8-2.4) mg/dL Total Bilirubin (0.2-1.0) mg/dL AST (15-37) U/L ALT (14-59) U/L Alkaline Phosphatase (46-116) U/L C-Reactive Protein (<=0.9) mg/dL Total Protein (6.4-8.2) g/dL Albumin (3.4-5.0) g/dL Globulin Albumin/Globulin Ratio Urine Color Yellow (YELLOW) Urine Appearance Cloudy H (CLEAR) Urine pH 5.0 (5.0-8.0) Ur Specific [place] 1.010 Urine Protein Negative (NEGATIVE) mg/dL Urine Glucose (UA) 100 H (NEGATIVE) mg/dL Urine Ketones Negative (NEGATIVE) mg/dL Urine Occult Blood Small H (NEGATIVE) Urine Nitrite Negative (NEGATIVE) Urine Bilirubin Negative (NEGATIVE) Urine Urobilinogen 0.2 (0.2) EU/dL Ur Leukocyte Esterase Small H (NEGATIVE) Urine RBC 0-5 (NOT SEEN) /HPF Urine WBC 5-10 H (NOT SEEN) /HPF Ur Squamous Epith Cells Many H (NEGATIVE) /HPF Urine Bacteria Moderate H (NEGATIVE) /HPF Urine Mucus Rare H (NEGATIVE) /LPF 05/06/19 05/06/19 05/06/19 Range/Units 14:54 14:54 15:17 WBC (4.0-10.0) x10^3/uL RBC (4.00-5.50) x10^6/uL Hgb (12.0-16.0) g/dL Hct (33.0-47.0) % MCV (78.0-93.0) fL MCH (26.0-32.0) pg MCHC (32.0-36.0) g/dL RDW Coeff of Johnathan (10.0-15.0) % Plt Count (130-400) x10^3/uL Neut % (Auto) (50.0-80.0) % Lymph % (Auto) (25.0-50.0) % [place] % (Auto) (2.0-11.0) % Eos % (Auto) (0.0-4.0) % Baso % (Auto) (0.2-1.2) % PT (10.0-12.8) SEC INR (2.0-3.5) POC Sodium 138 (138-146) mmol/L Sodium 138 (136-145) mmol/L POC Potassium 3.7 (3.5-4.9) mmol/L Potassium 3.8 (3.5-5.1) mmol/L POC Chloride 101 (98-109) mmol/L Chloride 99 (98-107) mmol/L Carbon Dioxide 25 (21-32) mmol/L POC Total CO2 22 L (24-29) mmol/L Anion Gap 17.8 (10-20) mmol/L POC Anion Gap 19 POC BUN 24 (8-26) mg/dL BUN 24 H (7-18) mg/dL Creatinine 1.3 H (0.55-1.02) mg/dL POC Creatinine 1.1 (0.6-1.3) mg/dL Est Cr Clr Drug Dosing 27.82 mL/min Estimated GFR (MDRD) 39 Glucose 335 H (74-106) mg/dL POC Glucose 341 H (70-105) mg/dL Lactic Acid 1.9 (0.4-2.0) mmol/L Calcium 9.2 (8.5-10.1) mg/dL Corrected Calcium 10.16 H (8.5-10.1) mg/dL Phosphorus 3.5 (2.6-4.7) mg/dL Magnesium 1.3 L (1.8-2.4) mg/dL Total Bilirubin 0.8 (0.2-1.0) mg/dL AST 27 (15-37) U/L ALT 20 (14-59) U/L Alkaline Phosphatase 180 H (46-116) U/L C-Reactive Protein 4.2 H (<=0.9) mg/dL Total Protein 8.3 H (6.4-8.2) g/dL Albumin 2.8 L (3.4-5.0) g/dL Globulin 5.5 Albumin/Globulin Ratio 0.51 Urine Color (YELLOW) Urine Appearance (CLEAR) Urine pH (5.0-8.0) Ur Specific [place] Urine Protein (NEGATIVE) mg/dL Urine Glucose (UA) (NEGATIVE) mg/dL Urine Ketones (NEGATIVE) mg/dL Urine Occult Blood (NEGATIVE) Urine Nitrite (NEGATIVE) Urine Bilirubin (NEGATIVE) Urine Urobilinogen (0.2) EU/dL Ur Leukocyte Esterase (NEGATIVE) Urine RBC (NOT SEEN) /HPF Urine WBC (NOT SEEN) /HPF Ur Squamous Epith Cells (NEGATIVE) /HPF Urine Bacteria (NEGATIVE) /HPF Urine Mucus (NEGATIVE) /LPF Meds: Medications Generic Name Dose Route Start Last Admin Trade Name Freq PRN Reason Stop Dose Admin Sodium Chloride 1,000 mls @ 125 mls/hr 05/06/19 14:37 05/06/19 14:35 Normal Saline IV 05/06/19 22:36 125 mls/hr .BOLUS ONE Administration Levofloxacin/Dextrose 750 mg/ 150 mls @ 100 mls/hr 05/06/19 15:26 05/06/19 15 :45 Premix IV 05/06/19 16:55 100 mls/hr ONETIME ONE Administration Sodium Chloride 10 ml 05/06/19 14:32 Saline Flush FLUSH ASDIRECTED PRN Keep Vein Open Discontinued Medications Generic Name Dose Route Start Last Admin Trade Name Freq PRN Reason Stop Dose Admin Ondansetron HCl 4 mg 05/06/19 14:39 05/06/19 14:55 Zofran IVPUSH 05/06/19 14:40 4 mg ONETIME ONE Administration Oxycodone HCl 5 mg 05/06/19 15:10 05/06/19 15:47 Oxycodone PO 05/06/19 15:11 5 mg ONETIME ONE Administration Departure - Departure Time of Disposition: 16:12 Disposition: DC/Tfer to [facility] 02 Clinical Impression: Left lower lobe pneumonia, Sepsis, Necrotic toes - Discharge Information Referrals: Freda Enciso MD [Primary Care Provider] - Forms: ED Department Discharge - Problem List Review Problem List Initiated/Reviewed/Updated: Yes - My Orders Last 24 Hours: My Active Orders 05/06/19 14:32 Sodium Chloride 0.9% [Saline Flush] 10 ml FLUSH ASDIRECTED PRN 05/06/19 14:34 CULTURE BLOOD [BC] Stat CULTURE BLOOD [BC] Stat Blood Culture x2 Reflex Set [OM.PC] Stat 05/06/19 14:35 Implanted Port Access [RC] ASDIRECTED 05/06/19 14:37 Sodium Chloride 0.9% [Normal Saline] 1,000 ml IV .BOLUS 05/06/19 14:39 Central Line Assessment [RC] DAILY 05/06/19 15:26 Levofloxacin/Dextrose 5%-Water [Levaquin in D5W 750 MG/150 ML] 750 mg Premix Bag 1 bag IV ONETIME - Assessment/Plan Last 24 Hours: My Active Orders 05/06/19 14:32 Sodium Chloride 0.9% [Saline Flush] 10 ml FLUSH ASDIRECTED PRN 05/06/19 14:34 CULTURE BLOOD [BC] Stat CULTURE BLOOD [BC] Stat Blood Culture x2 Reflex Set [OM.PC] Stat 05/06/19 14:35 Implanted Port Access [RC] ASDIRECTED 05/06/19 14:37 Sodium Chloride 0.9% [Normal Saline] 1,000 ml IV .BOLUS 05/06/19 14:39 Central Line Assessment [RC] DAILY 05/06/19 15:26 Levofloxacin/Dextrose 5%-Water [Levaquin in D5W 750 MG/150 ML] 750 mg Premix Bag 1 bag IV ONETIME Plan: Spoke at length with patient, family, and 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 Pt. is a very complex case, particularly from an infectious disease standpoint. She will be transferred to [facility] in [place]. Dr. Keller is accepting. She does have evidence of a L lower lobe infiltrate and also a mild UTI. She was given Levaquin 750mg IV in ER (she is allergic to cephalosporins and penicillin). She was started on NS at 125ml/hr. She was given oxycodone 5mg PO (scheduled dose due to chronic pain, no new pain in the extremities). All questions were answered.
[2019-05-06] MEDS ORDERED: oxyCODONE 5 MG Tab PO ONE (15:10)
--- NOTE | 2019-05-06 15:15 | CR ---
[id number] RAD/RAD Chest PA or AP 1V EXAM: RAD Chest PA or AP 1V INDICATION: FEVER, WEAKNESS. COMPARISON: December 12, 2018. DISCUSSION: Cardiomegaly and central vascular congestion, similar to the prior examination. Streaky parenchymal opacity in the retrocardiac region of the left lung. In the setting of fever, developing pneumonia is possible. IMPRESSION: Possible left lung base pneumonia. Bentley Roa MD 05/06/19 1944 Thank you for allowing us to participate in the care of your patient.
[2019-05-06] MEDS ORDERED: Levofloxacin/Dextrose 5%-Water 750 MG in Premix Bag 1 BAG IV ONE (15:26)
[2019-05-06 15:28] VITALS: BP 156/65; PULSE 97
[2019-05-06 15:54] LABS: ANION GAP 17.8 mmol/L (10-20)
== END 2019-05-06 17:25 | disposition short-term general hospital (02) ==
LOC: VM.ED 14:20
DX: J18.1 Lobar pneumonia, unspecified organism (principal); I11.0 Hypertensive heart disease with heart failure; I50.9 Heart failure, unspecified; E11.9 Type 2 diabetes mellitus without complications; I25.10 Atherosclerotic heart disease of native coronary artery without angina pectoris; Z88.0 Allergy status to penicillin; Z88.5 Allergy status to narcotic agent; Z88.8 Allergy status to other drugs, medicaments and biological substances; Z79.82 Long term (current) use of aspirin; Z79.899 Other long term (current) drug therapy; Z88.1 Allergy status to other antibiotic agents; Z79.84 Long term (current) use of oral hypoglycemic drugs; R78.81 Bacteremia; B95.61 Methicillin susceptible Staphylococcus aureus infection as the cause of diseases classified elsewhere
CPT/HCPCS: 36415; 71045; 80053; 81001; 83605; 83735; 84100; 85025; 85610; 86140; 87040; 87077; 87186; 96361; 96365; 96374; 96375; 99284; 99285; A9270; J0878; J1642; J1956; J2405; J7030; 80047

== ENCOUNTER 2021-01-15 13:08 | Emergency (ER) | payer MEDICARE, OTHER ==
[2021-01-15] MEDS: HYDROmorphone 0.5 MG/0.5 ML Syringe IV ONE (13:30)
[2021-01-15 13:46] LABS: CHLORIDE,CL 103 mmol/L (98-107); SODIUM,NA 140 mmol/L (136-145)
[2021-01-15 13:47] LABS: ANION GAP 16.5 mmol/L (5-15)
--- NOTE | 2021-01-15 14:49 | CT ---
[id number] CT/CT Head WO IV EXAM: CT Head WO IV CLINICAL DATA: FALL, STRUCK HEAD, ANTICOAGULATED. COMPARISON STUDY: June 2019. FINDINGS: No intracranial hemorrhage, extra-axial fluid collection, mass, or acute ischemia. No hydrocephalus. Calvarium intact. Paranasal sinuses and mastoid air cells are clear. IMPRESSION: No acute intracranial findings. Bentley Roa MD 01/15/21 [id number] Thank you for allowing us to participate in the care of your patient.
--- NOTE | 2021-01-15 14:54 | CT ---
[id number] CT/CT Cervical Spine WO IV Exam: CT Cervical Spine WO IV Clinical Data: TRAUMA COMPARISON: NO PREVIOUS SIMILAR EXAM IS AVAILABLE FINDINGS: No fracture or subluxation is seen There are degenerative changes There are atheromatous calcifications The prevertebral soft tissues are unremarkable IMPRESSION: NO FRACTURE OR SUBLUXATION Mack Roque MD 01/15/21 [id number] Thank you for allowing us to participate in the care of your patient.
--- NOTE | 2021-01-15 15:05 | CR ---
[id number] RAD/RAD Forearm Right 2V EXAM: RAD Forearm Right 2V CLINICAL DATA: TRAUMA COMPARISON: No previous similar exam is available. FINDINGS: Fracture at the base of the right fifth metacarpal is seen with articular extension No other fracture or dislocation is identified. IMPRESSION: RIGHT FIFTH METACARPAL FRACTURE Mack Roque MD 01/15/21 [id number] Thank you for allowing us to participate in the care of your patient.
--- NOTE | 2021-01-15 15:05 | CT ---
[id number] CT/CT Lumbar Spine WO IV Exam: CT Lumbar Spine WO IV Clinical Data: TRAUMA COMPARISON: NO PREVIOUS SIMILAR EXAM IS AVAILABLE FINDINGS: There is air in the biliary tree Correlation is made with the CAT scan dated June 15, 2020 This was previously present There is evidence of right-sided nephrolithiasis There is a stent in the common duct There are atheromatous calcifications There are degenerative changes Multiple lucencies are seen in the bone Question raised as to possible multiple myeloma There is no fracture or subluxation IMPRESSION: NO FRACTURE OR SUBLUXATION EXTENSIVE DEGENERATIVE CHANGES QUESTION OF MYELOMA Mack Roque MD 01/15/21 9525 Thank you for allowing us to participate in the care of your patient.
--- NOTE | 2021-01-15 15:07 | CR ---
[id number] RAD/RAD Hand Bilateral 2V EXAM: RAD Hand Bilateral 2V CLINICAL DATA: TRAUMA COMPARISON: No previous similar exam is available. FINDINGS: A fracture at the base of the right fifth metacarpal is seen with articular involvement There are extensive degenerative changes. IMPRESSION: RIGHT FIFTH METACARPAL FRACTURE DEGENERATIVE CHANGE BILATERALLY Mack Roque MD 01/15/21 3250 Thank you for allowing us to participate in the care of your patient.
== END 2021-01-15 15:45 | disposition swing bed (61) ==
LOC: VM.ED 13:08
DX: S62.316A Displaced fracture of base of fifth metacarpal bone, right hand, initial encounter for closed fracture (principal); S16.1XXA Strain of muscle, fascia and tendon at neck level, initial encounter; S00.03XA Contusion of scalp, initial encounter; S30.0XXA Contusion of lower back and pelvis, initial encounter; I25.10 Atherosclerotic heart disease of native coronary artery without angina pectoris; E78.00 Pure hypercholesterolemia, unspecified; I11.0 Hypertensive heart disease with heart failure; I50.9 Heart failure, unspecified; K21.9 Gastro-esophageal reflux disease without esophagitis; E11.9 Type 2 diabetes mellitus without complications; I25.2 Old myocardial infarction; M10.9 Gout, unspecified; Z91.013 Allergy to seafood; Z88.1 Allergy status to other antibiotic agents; Z88.0 Allergy status to penicillin; Z88.7 Allergy status to serum and vaccine; Z88.5 Allergy status to narcotic agent; Z88.8 Allergy status to other drugs, medicaments and biological substances; Z79.82 Long term (current) use of aspirin; Z79.899 Other long term (current) drug therapy; Z79.4 Long term (current) use of insulin; W19.XXXA Unspecified fall, initial encounter
CPT/HCPCS: 70450; 72125; 72131; 73090-RT; 73130-50; 80053; 85025; 99284; 99285; J1170

== ENCOUNTER 2021-01-15 13:08 | Inpatient (IN) | payer MEDICARE, OTHER ==
[2021-01-15] MEDS ORDERED: HYDROmorphone 0.5 MG/0.5 ML Syringe IV ONE (13:22)
--- NOTE | 2021-01-15 14:12 | EDM.PDOC ---
ED HPI GENERAL MEDICAL PROBLEM - General Time Seen by Provider: 01/15/21 13:08 Source of Information: Reports: Patient, EMS History Limitations: Reports: No Limitations - History of Present Illness INITIAL COMMENTS - FREE TEXT/NARRATIVE: Pt. presents to ER with complaints of head, neck, bilateral hand, R forearm, and low back pain post fall. Pt. fell last night. She is an amputee and states that her prosthesis "gave out" causing her to fall. Pt. denies any LOC. She is on Brilinta, appears to be secondary to CAD. Pt. states that this was a mechanical fall. Denies any chest pain, shortness of breath, lightheadedness, or weakness prior to the fall. Denies any nausea or vomiting. No blood in stools. Onset Date: 01/14/21 Location: Reports: Head, Neck, Back, Upper Extremity, Left, Upper Extremity, Right Quality: Reports: Ache Severity: Moderate Improves with: Reports: Rest Worsens with: Reports: Movement Lower Back Pain Score (Numeric/FACES): 10 Right Hand Pain Score (Numeric/FACES): 10 Left Hand Pain Score (Numeric/FACES): 4 - Related Data Allergies Allergy/AdvReac Type Severity Reaction Status Date / Time shellfish derived Allergy Severe Anaphylactic Verified 01/15/21 14:39 Shock cefuroxime axetil Allergy Hives Verified 01/15/21 14:39 [From Ceftin] Cephalosporins Allergy Cannot Verified 01/15/21 15:59 Remember Penicillins Allergy Other Verified 01/15/21 14:39 tetanus toxoid, adsorbed Allergy Other Verified 01/15/21 14:39 gemfibrozil [From Lopid] AdvReac Muscle Verified 01/15/21 14:39 Aches metformin AdvReac Renal Verified 01/15/21 14:39 Insufficiency morphine AdvReac Hypotension Verified 01/15/21 14:39 simvastatin [From Zocor] AdvReac Muscle Verified 01/15/21 14:39 Aches Zgobgsh-Sst-Hvb Reductase AdvReac Muscle Verified 01/15/21 14:39 Inhibitor Aches Home Meds: Home Meds Cholecalciferol (Vitamin D3) [Vitamin D3] 2,000 units PO DAILY 03/23/15 [History] Aspirin [Halfprin] 81 mg PO DAILY 03/29/15 [History] Furosemide 20 mg PO DAILY PRN 03/09/19 [History] Losartan Potassium 12.5 mg PO DAILY 12/12/18 [History] Nitroglycerin 0.4 mg PO ASDIRECTED PRN 12/12/18 [History] Omeprazole 20 mg PO DAILY 12/12/18 [History] Ticagrelor [Brilinta] 90 mg PO BID 12/12/18 [History] Spironolactone [Aldactone] 12.5 mg PO DAILY 02/16/19 [History] Metoprolol Succinate [Toprol XL 50mg] 50 mg PO DAILY 04/10/19 [History] Docusate Sodium/Sennosides [Senokot-S] 2 tab PO BID PRN 05/20/19 [History] Ubidecarenone [Co Q-10] 200 mg PO BEDTIME 05/20/19 [History] glipiZIDE [Glipizide ER] 5 mg PO DAILY 05/20/19 [History] Gabapentin [Neurontin] 300 mg PO BID #60 cap 07/27/19 [Rx] Insulin Glarg,Human.Rec.Analog [Lantus Solostar] 5 units SUBCUT DAILY #5 pen 07/27/19 [Rx] Iron Polysaccharides Complex [Ferrex 150] 150 mg PO BID #60 cap 07/27/19 [Rx] allopurinoL [Zyloprim] 100 mg PO DAILY #30 tablet 07/27/19 [Rx] traZODone HCl [Trazodone HCl] 50 mg PO BEDTIME #30 tablet 07/27/19 [Rx] Magnesium Oxide 400 mg PO BID #60 tablet 07/28/19 [Rx] ALPRAZolam [Xanax] 0.25 mg PO DAILY PRN 01/15/21 [History] Acetaminophen 325 mg PO BID 01/15/21 [History] Acetaminophen 650 mg PO Q4H PRN 01/15/21 [History] Carboxymethylcellulose Sodium [Artificial Tears] 1 drop EYEBOTH ASDIRECTED PRN 01/15/21 [History] Furosemide 20 mg PO DAILY 01/15/21 [History] Nystatin [Nystatin Crm] 1 dose TOP DAILY PRN 01/15/21 [History] Triamcinolone Acetonide 1 dose TP BID 01/15/21 [History] Past Medical History HEENT History: Reports: Cataract, Other (See Below) Other HEENT History: VITREOUS DETACHMENT, DRY EYE, MYOPIA, PRESBYOPIA. pseudophakia Cardiovascular History: Reports: CAD, Heart Failure, High Cholesterol, Hypertension Other Cardiovascular History: SYSTOLIC MURMUR, VARICOSE VIENS. non-rheumatic mitral valve stenosis. cardiac LV ejection fraction 10-20%. NSTEMI. non- rheumatic mitral valve stenosis. peripheral artery disease Gastrointestinal History: Reports: Cholelithiasis, Colon Polyp, GERD Other Gastrointestinal History: ABDOMINAL PAIN. cholecystitis. dyspepsia Genitourinary History: Reports: Renal Disease Other Genitourinary History: PROTEINURIA. midline cystocele Musculoskeletal History: Reports: Back Pain, Chronic, Fibromyalgia, Gout Other Musculoskeletal History: RT LEG PAIN, WRIST PAIN, GANGLION TENDON SHEATH OF RIGHT INDEX FINGER, CARPAL TUNNEL SYNDROME. LIPOM A LEFT LOWER EXTREMITY. CHRONIC PAIN R FOOT. LEFT WRIST PAIN. central stenosis of spinal cord. fibromyalgia. L HIP PAIN Neurological History: Reports: Other (See Below) Other Neuro History: cognitive dysfunction Psychiatric History: Reports: Other (See Below) Other Psychiatric History: COGNITIVE DYSFUNCTION Endocrine/Metabolic History: Reports: Diabetes, Type II, Other (See Below) Other Endocrine/Metabolic History: MALAISE AND FATIGUE. DIABETES MELLITUS. HYPOMAGNESEMIA Hematologic History: Reports: Anemia, Other (See Below) Other Hematologic History: hypomagnesemia Oncologic (Cancer) History: Reports: Squamous Cell Carcinoma Other Dermatologic History: DERMATOCHALASIS, ACTINIC KERATOSIS - Infectious Disease History Infectious Disease History: Reports: Other (See Below) Other Infectious Disease History: mssa - Past Surgical History HEENT Surgical History: Reports: Adenoidectomy, Cataract Surgery, Tonsillectomy GI Surgical History: Reports: ERCP Female Surgical History: Reports: Breast Biopsy, Hysterectomy, Other (See Below) Social & Family History - Family History Family Medical History: No Pertinent Family History - Caffeine Use Caffeine Use: Reports: Coffee ED ROS GENERAL - Review of Systems Review Of Systems: See Below Constitutional: Reports: No Symptoms. Denies: Fever, Chills, Malaise, Weakness, Fatigue, Diaphoresis HEENT: Reports: No Symptoms Respiratory: Reports: No Symptoms Cardiovascular: Reports: No Symptoms Endocrine: Reports: No Symptoms GI/Abdominal: Reports: No Symptoms : Reports: No Symptoms Musculoskeletal: Reports: Other (See HPI) Skin: Reports: No Symptoms Neurological: Reports: No Symptoms Psychiatric: Reports: No Symptoms Hematologic/Lymphatic: Reports: No Symptoms Immunologic: Reports: No Symptoms ED EXAM, GENERAL - Physical Exam Exam: See Below Exam Limited By: No Limitations General Appearance: Alert, WD/WN, No Apparent Distress Eye Exam: Bilateral Eye: EOMI, Normal Fundi, Normal Inspection, PERRL Nose: Normal Inspection, Normal Mucosa, No Blood Throat/Mouth: Normal Inspection, Normal Lips, Normal Oropharynx, Normal Voice, No Airway Compromise Head: Other (scalp contusion R parietal area) Neck: Supple, Limited Range of Motion, Tender Midline Respiratory/Chest: No Respiratory Distress, Lungs Clear, No Accessory Muscle Use, Chest Non-Tender Cardiovascular: Normal Peripheral Pulses, Regular Rate, Rhythm, No Edema, No JVD Peripheral Pulses: 4+: Radial (R) GI/Abdominal: Soft, Non-Tender, No Organomegaly, No Distention, No Mass, Pelvis Stable (No pelvic pain) (Female) Exam: Deferred Rectal (Female) Exam: Deferred Back Exam: Paraspinal Tenderness (low back), Vertebral Tenderness Extremities: Other (ecchymosis, hematoma, and tenderness R posterior hand, wrist and distal forearm. No obvious deformity noted. Tenderness to 2nd 3rd and 4th digit of L hand. No deformity noted. ROM is diminished. Denies any hip pain. ROM seems normal. ) Neurological: Alert, Oriented, CN II-XII Intact, Normal Cognition, Normal Reflexes, No Motor/Sensory Deficits Psychiatric: Normal Affect, Anxious Skin Exam: Warm, Dry, Intact, Normal Color, No Rash ED GENERAL MEDICAL PROCEDURES - Splinting Upper Extremity Pre-procedure NV status: Normal Post-procedure NV status: Normal Splint Type: Custom Splint Material: Velcro Splint Design: Volar Applied & Form Fitted By: Nurse Provider Post-Splint Application NV Check: NV Status Normal, Good Position Complications: No Course - Vital Signs Last Recorded V/S: Last Vital Signs Temp 36.6 C 01/15/21 13:10 Pulse 71 01/15/21 13:10 Resp 16 01/15/21 13:10 BP 168/56 H 01/15/21 13:10 Pulse Ox 96 01/15/21 13:10 - Orders/Labs/Meds Labs: Laboratory Tests 01/15/21 01/15/21 Range/Units 13:15 13:15 WBC 7.9 (4.0-10.0) x10^3/uL RBC 4.06 (4.00-5.50) x10^6/uL Hgb 12.6 D (12.0-16.0) g/dL Hct 38.4 (33.0-47.0) % MCV 94.6 H D (78.0-93.0) fL MCH 31.0 (26.0-32.0) pg MCHC 32.8 (32.0-36.0) g/dL RDW Coeff of Johnathan 14.1 (10.0-15.0) % Plt Count 239 D (130-400) x10^3/uL Neut % (Auto) 74.9 (50.0-80.0) % Lymph % (Auto) 15.0 L (25.0-50.0) % Dixie % (Auto) 6.2 (2.0-11.0) % Eos % (Auto) 3.4 (0.0-4.0) % Baso % (Auto) 0.5 (0.2-1.2) % Sodium 140 (136-145) mmol/L Potassium 4.5 (3.5-5.1) mmol/L Chloride 103 (98-107) mmol/L Carbon Dioxide 25 (21-32) mmol/L Anion Gap 16.5 H (5-15) mmol/L BUN 44 H (7-18) mg/dL Creatinine 2.0 H (0.55-1.02) mg/dL Est Cr Clr Drug Dosing TNP Estimated GFR (MDRD) 24 Glucose 228 H (70-99) mg/dL Calcium 9.0 (8.5-10.1) mg/dL Corrected Calcium 9.32 (8.5-10.1) mg/dL Total Bilirubin 1.0 (0.2-1.0) mg/dL AST 18 (15-37) U/L ALT 20 (14-59) U/L Alkaline Phosphatase 93 (46-116) U/L Total Protein 8.1 (6.4-8.2) g/dL Albumin 3.6 (3.4-5.0) g/dL Globulin 4.5 Albumin/Globulin Ratio 0.80 Meds: Medications Discontinued Medications Generic Name Dose Route Start Last Admin Trade Name Freq PRN Reason Stop Dose Admin Hydromorphone HCl 0.5 mg 01/15/21 13:22 01/15/21 13:30 Hydromorphone 0.5 Mg/0.5 Ml Syringe IV 01/15/21 13:23 0.5 mg ONETIME ONE Administration - Radiology Interpretation Free Text/Narrative:: CT brain negative for acute pathology CT C-spine negative for acute pathology CT L spine negative for acute pathology. There were lucencies noted to the bone on this exam, concerning for multiple myeloma. Forearm radiographs were negative. Bilateral hand radiographs obtained. Pt. is noted to have a non-displaced 5th metacarpal base fx. involving the articular surface. Departure - Departure Time of Disposition: 15:53 Disposition: DC/Tfer W/I Hosp To Swing Clinical Impression: Closed fracture of 5th metacarpal, Lumbar contusion, Cervical strain, acute, Contusion of head - Discharge Information Sepsis Event Note (ED) - Focused Exam Vital Signs: Vital Signs Temp Pulse Resp BP Pulse Ox 01/15/21 13:10 36.6 C 71 16 168/56 H 96 - Problem List Review Problem List Initiated/Reviewed/Updated: Yes - Assessment/Plan Admission H&P: Please use this note as an admission H&P Plan: Pt. noted to have a 5th metacarpal base fracture. Images were reviewed by Dr. Anderson from [facility]. He advised use of a "cock-up" splint, with repeat radiographs and follow-up with ortho in approx. 1 week. Pt. is a resident at [facility]. Daughter is concerned that the patient will be unable get out of bed or do her ADLs without assistance. She states that no one is unable to provide any assistance for her in her apartment. Subsequently, pt. will be admitted self pay swing bed due to problems with ambulation/frequent falls. Social work is arranging this. Dr. Enciso will round on the patient tomorrow AM, and will follow the patient during he admission. Our group will perform the admission process. Pt. is a code 2, DNR/DNI.
--- NOTE | 2021-01-15 14:49 | CT ---
[id number] CT/CT Head WO IV EXAM: CT Head WO IV CLINICAL DATA: FALL, STRUCK HEAD, ANTICOAGULATED. COMPARISON STUDY: June 2019. FINDINGS: No intracranial hemorrhage, extra-axial fluid collection, mass, or acute ischemia. No hydrocephalus. Calvarium intact. Paranasal sinuses and mastoid air cells are clear. IMPRESSION: No acute intracranial findings. Bentley Roa MD 01/15/21 1962 Thank you for allowing us to participate in the care of your patient.
--- NOTE | 2021-01-15 14:54 | CT ---
[id number] CT/CT Cervical Spine WO IV Exam: CT Cervical Spine WO IV Clinical Data: TRAUMA COMPARISON: NO PREVIOUS SIMILAR EXAM IS AVAILABLE FINDINGS: No fracture or subluxation is seen There are degenerative changes There are atheromatous calcifications The prevertebral soft tissues are unremarkable IMPRESSION: NO FRACTURE OR SUBLUXATION Mack Roque MD 01/15/21 [id number] Thank you for allowing us to participate in the care of your patient.
--- NOTE | 2021-01-15 15:05 | CR ---
[id number] RAD/RAD Forearm Right 2V EXAM: RAD Forearm Right 2V CLINICAL DATA: TRAUMA COMPARISON: No previous similar exam is available. FINDINGS: Fracture at the base of the right fifth metacarpal is seen with articular extension No other fracture or dislocation is identified. IMPRESSION: RIGHT FIFTH METACARPAL FRACTURE Mack Roque MD 01/15/21 1940 Thank you for allowing us to participate in the care of your patient.
--- NOTE | 2021-01-15 15:05 | CT ---
[id number] CT/CT Lumbar Spine WO IV Exam: CT Lumbar Spine WO IV Clinical Data: TRAUMA COMPARISON: NO PREVIOUS SIMILAR EXAM IS AVAILABLE FINDINGS: There is air in the biliary tree Correlation is made with the CAT scan dated June 15, 2020 This was previously present There is evidence of right-sided nephrolithiasis There is a stent in the common duct There are atheromatous calcifications There are degenerative changes Multiple lucencies are seen in the bone Question raised as to possible multiple myeloma There is no fracture or subluxation IMPRESSION: NO FRACTURE OR SUBLUXATION EXTENSIVE DEGENERATIVE CHANGES QUESTION OF MYELOMA Mack Roque MD 01/15/21 0223 Thank you for allowing us to participate in the care of your patient.
--- NOTE | 2021-01-15 15:07 | CR ---
[id number] RAD/RAD Hand Bilateral 2V EXAM: RAD Hand Bilateral 2V CLINICAL DATA: TRAUMA COMPARISON: No previous similar exam is available. FINDINGS: A fracture at the base of the right fifth metacarpal is seen with articular involvement There are extensive degenerative changes. IMPRESSION: RIGHT FIFTH METACARPAL FRACTURE DEGENERATIVE CHANGE BILATERALLY Mack Roque MD 01/15/21 9247 Thank you for allowing us to participate in the care of your patient.
[2021-01-15] MEDS ORDERED: Docusate Sodium 100 MG Cap PO PRN (16:10)
[2021-01-15] MEDS ORDERED: Polyethylene Glycol 3350 Powder 17 GM Packet PO PRN (16:10)
[2021-01-15] MEDS ORDERED: HYDROmorphone 0.5 MG/0.5 ML Syringe IVPUSH PRN (16:10)
[2021-01-15] MEDS ORDERED: Ondansetron 4 MG Tab.DIS PO PRN (16:10)
[2021-01-15] MEDS ORDERED: ALPRAZolam 0.25 MG Tab PO PRN (16:23)
[2021-01-15] MEDS ORDERED: Nystatin Crm 30 GM Tube TOP PRN (16:24)
[2021-01-15] MEDS ORDERED: Hypromellose 0.3% Ophth Soln 15 ML Bottle EYEBOTH PRN (16:24)
[2021-01-15] MEDS ORDERED: Non-Formulary Medication 1 Each TOP PRN (16:32)
[2021-01-15] MEDS ORDERED: FLU Vacc QV2020-21(65YR UP)/PF 240 MCG/0.7 ML Syringe IM ONE (16:45)
[2021-01-15] MEDS: Acetaminophen/HYDROcodone 325-5 MG Tab PO PRN ×2 (17:25→23:07)
--- NOTE | 2021-01-15 17:47 | PCM.SN.2 ---
- Free Text/Narrative Note: spoke with pt and daughter that her CT Lumbar spine had lucencies present, could be multiple myeloma, so will work that up.
[2021-01-15] MEDS ORDERED: traZODone 50 MG Tab PO SCH (20:00)
[2021-01-15] MEDS: Ticagrelor 90 MG Tab PO SCH (20:43)
[2021-01-15] MEDS: Gabapentin 300 MG Cap PO SCH (20:45)
[2021-01-15] MEDS: Magnesium Oxide 400 MG Tab PO SCH (20:46)
[2021-01-15] MEDS: Iron Polysaccharides Complex 150 MG Cap PO SCH (20:46)
[2021-01-16] MEDS: Acetaminophen/HYDROcodone 325-5 MG Tab PO PRN (06:26)
[2021-01-16] MEDS ORDERED: Omeprazole 20 MG Cap.CR PO SCH (07:00)
[2021-01-16 07:06] LABS: ANION GAP 14.8 mmol/L (5-15)
[2021-01-16] MEDS ORDERED: Insulin Glarg,Human.Rec.Analog 100 Unit/ML SUBCUT SCH (08:00)
[2021-01-16] MEDS ORDERED: Spironolactone 25 MG Tab PO SCH (08:00)
[2021-01-16] MEDS ORDERED: glipiZIDE 2.5 MG Tab.ER PO SCH (08:00)
[2021-01-16] MEDS ORDERED: Metoprolol Succinate 50 MG Tab.ER PO SCH (08:00)
[2021-01-16] MEDS ORDERED: Cholecalciferol (Vitamin D3) 25 MCG Tab PO SCH (08:00)
[2021-01-16] MEDS ORDERED: Allopurinol 100 MG Tab PO SCH (08:00)
[2021-01-16] MEDS ORDERED: Losartan 25 MG Tab PO SCH (08:00)
[2021-01-16] MEDS ORDERED: Furosemide 20 MG Tab PO SCH (08:00)
[2021-01-16] MEDS ORDERED: Aspirin 81 MG Tab.EC PO SCH (08:00)
[2021-01-16] MEDS ORDERED: Acetaminophen/HYDROcodone 325-5 MG Tab (OWN SUPPLY) PO PRN (09:35)
[2021-01-16] MEDS ORDERED: Ondansetron 4 MG Tab.DIS (OWN SUPPLY) PO PRN (09:36)
[2021-01-16] MEDS ORDERED: ALPRAZOLAM 0.25 MG PO PRN (09:37)
[2021-01-16] MEDS ORDERED: Nystatin Crm 30 GM Tube TOP PRN (09:58)
[2021-01-16] MEDS ORDERED: Acetaminophen/HYDROcodone 325-5 MG Tab PO PRN ×2 (10:06→14:48)
--- NOTE | 2021-01-16 10:17 | PN ---
Progress Note for LEO BERMUDEZ Date: 01/16/2021 Room #: VM.217 SUBJECTIVE: This is her 2nd hospital day after having a fall with a right hand fracture. She did receive some pain pills this morning. She has not quite awoken up yet and so she is wondering about when she can go home, but I stated she needs to be working well with therapies first. OBJECTIVE: Vital Signs: Her temperature is 36.5, pulse 66, blood pressure is 156/57, respiratory rate is 18, sats are 95%. Her weight is 68.9 kg. General: She is alert. She is slow to wake up, but does wake up. She recognizes who I am. Happy to see me. Heart: Regular rate. Lungs: Clear. Extremities: Right hand is in a cast. Neurologic: She is alert, conversant, knows who I am. LABORATORY WORK: Shows sodium 141, potassium 3.8, creatinine is improved to 1.8, which is about her baseline. GFR is up to 27. Glucose is 180, magnesium is 2.3. IMPRESSION: 1. Fall. 2. Right hand fracture. 3. Abnormal CT of her spine with lucencies present, rule out multiple myeloma. 4. Mild cognitive dysfunction. 5. CKD stage 3. 6. Type II DM. 7. CAD. 8. History of bilateral BKA's . PLAN: We are awaiting her urine tests for multiple myeloma workup. She will work with Physical Therapy today. I anticipate probable discharge home tomorrow or next few days.depending on progress. GM01/16/2021 08:56:26 MODL: 01/16/2021 10:13:31 /[id number] MTDD
[2021-01-16] MEDS: Gabapentin 300 MG Cap (OWN SUPPLY) PO SCH ×2 (10:21→20:19)
[2021-01-16] MEDS: TICAGRELOR 90 MG PO SCH ×2 (10:21→20:17)
[2021-01-16] MEDS: MAGNESIUM OXIDE 400 MG PO SCH ×2 (10:22→20:17)
[2021-01-16] MEDS: IRON POLYSACCHARIDES COMPLEX 150 MG PO SCH ×2 (10:22→20:17)
[2021-01-16] MEDS: CHOLECALCIFEROL 50 MCG PO SCH (10:22)
[2021-01-16] MEDS: Omeprazole 20 MG Cap.CR (OWN SUPPLY) PO SCH (10:23)
[2021-01-16] MEDS: Spironolactone 25 MG Tab (OWN SUPPLY) PO SCH (10:23)
[2021-01-16] MEDS: Metoprolol Succinate 50 MG Tab.ER (OWN SUPPLY) PO SCH (10:23)
[2021-01-16] MEDS: GLIPIZIDE 5 MG PO SCH (10:35)
[2021-01-16] MEDS: LOSARTAN 25 MG PO SCH (10:37)
[2021-01-16] MEDS: TRIAMCINOLONE ACETONIDE TOP SCH ×3 (10:38→20:19)
[2021-01-16] MEDS: Magnesium Oxide 400 MG Tab PO SCH (10:50)
[2021-01-16] MEDS: Gabapentin 300 MG Cap PO SCH (10:50)
[2021-01-16] MEDS: Ticagrelor 90 MG Tab PO SCH (10:51)
[2021-01-16] MEDS: Iron Polysaccharides Complex 150 MG Cap PO SCH (10:51)
[2021-01-16] MEDS ORDERED: traZODone 50 MG Tab (OWN SUPPLY) PO SCH (20:00)
[2021-01-17] MEDS: TICAGRELOR 90 MG PO SCH (07:41)
[2021-01-17] MEDS: IRON POLYSACCHARIDES COMPLEX 150 MG PO SCH (07:43)
[2021-01-17] MEDS: MAGNESIUM OXIDE 400 MG PO SCH (07:44)
[2021-01-17] MEDS: Gabapentin 300 MG Cap (OWN SUPPLY) PO SCH (07:45)
[2021-01-17] MEDS: Spironolactone 25 MG Tab (OWN SUPPLY) PO SCH (07:48)
[2021-01-17] MEDS: Metoprolol Succinate 50 MG Tab.ER (OWN SUPPLY) PO SCH (07:48)
[2021-01-17] MEDS: CHOLECALCIFEROL 50 MCG PO SCH (07:48)
[2021-01-17] MEDS: Omeprazole 20 MG Cap.CR (OWN SUPPLY) PO SCH (07:50)
[2021-01-17] MEDS: GLIPIZIDE 5 MG PO SCH (07:51)
[2021-01-17] MEDS: LOSARTAN 25 MG PO SCH (07:53)
[2021-01-17 07:55] VITALS: BP 141/39; PULSE 64
[2021-01-17] MEDS ORDERED: Furosemide 20 MG Tab (OWN SUPPLY) PO SCH (08:00)
[2021-01-17] MEDS ORDERED: Allopurinol 100 MG Tab (OWN SUPPLY) PO SCH (08:00)
[2021-01-17] MEDS ORDERED: Aspirin 81 MG Tab.EC (OWN SUPPLY) PO SCH (08:00)
[2021-01-17] MEDS ORDERED: INSULIN GLARG HUMAN REC ANALOG 100 UNIT/ML SUBCUT SCH (08:00)
[2021-01-17] MEDS: TRIAMCINOLONE ACETONIDE TOP SCH (08:00)
--- NOTE | 2021-01-17 13:50 | PCM.DCSUM1 ---
Discharge Summary - Hospital Course Brief History: Ms. Qiu is an 85 yo female who was admitted to swing bed for strengthening after she sustained a mechanical fall at assisted living. - Discharge Data Discharge Date: 01/17/21 Discharge Disposition: Home, W Home Health Agency 06 Condition: Good - Referral to Home Health Date of Face to Face Encounter: 01/17/21 Reason for Homebound Status: Patient is s/p amputation and now has a right 5th metatarsal fracture. She is not able to leave the home without the assistance of a gait aid and another person. Primary Care Physician: Freda Enciso MD Skilled Need: PT and OT - Discharge Diagnosis/Problem(s) (1) Closed fracture of 5th metacarpal SNOMED Code(s): 379160615 ICD Code: S62.308A - UNSP FRACTURE OF OTH METACARPAL BONE, INIT FOR CLOS FX Status: Acute Current Visit: Yes Qualifiers: Encounter type: initial encounter Metacarpal location: unspecified portion of metacarpal Fracture alignment: nondisplaced Laterality: right Qualified Code(s): S62.306A - Unspecified fracture of fifth metacarpal bone, right hand, initial encounter for closed fracture (2) Radiolucent lesion of bone SNOMED Code(s): 737228120, 496661920 ICD Code: M89.8X9 - OTHER SPECIFIED DISORDERS OF BONE, UNSPECIFIED SITE Status: Acute Current Visit: Yes Onset Date: ~01/15/21 Problem Details: noted on lumbar CT, suspicious for multiple myeloma (3) CAD (coronary artery disease) SNOMED Code(s): 58372025 ICD Code: I25.10 - ATHSCL HEART DISEASE OF [place] CORONARY ARTERY W/O ANG PCTRS Status: Chronic Current Visit: Yes Qualifiers: Coronary Disease-Associated Artery/Lesion type: [place] artery [place] vs. transplanted heart: [place] heart Associated angina: without angina Qualified Code(s): I25.10 - Atherosclerotic heart disease of [place] coronary artery without angina pectoris (4) CHF (congestive heart failure) SNOMED Code(s): 46318339 ICD Code: I50.9 - HEART FAILURE, UNSPECIFIED Status: Chronic Current Visit: Yes Qualifiers: Heart failure type: diastolic Heart failure chronicity: chronic Qualified Code(s): I50.32 - Chronic diastolic (congestive) heart failure (5) Chronic low back pain SNOMED Code(s): 892408179 ICD Code: M54.5 - LOW BACK PAIN; G89.29 - OTHER CHRONIC PAIN Status: Chronic Current Visit: Yes Qualifiers: Back pain laterality: unspecified Sciatica presence: unspecified whether sciatica present Qualified Code(s): M54.5 - Low back pain; G89.29 - Other chr onic pain (6) HTN (hypertension), benign SNOMED Code(s): 21233151 ICD Code: I10 - ESSENTIAL (PRIMARY) HYPERTENSION Status: Chronic Current Visit: Yes (7) Peripheral artery disease SNOMED Code(s): 526224058 ICD Code: I73.9 - PERIPHERAL VASCULAR DISEASE, UNSPECIFIED Status: Chronic Current Visit: Yes (8) Type II diabetes mellitus with complication SNOMED Code(s): 04366644, 549592547 ICD Code: E11.8 - TYPE 2 DIABETES MELLITUS WITH UNSPECIFIED COMPLICATIONS Status: Chronic Current Visit: Yes Problem Details: left great toe - Patient Summary/Data Operative Procedure(s) Performed: none Complications: none Consults: Consultations 01/15/21 16:10 Consult to Case Management/Inspector Floor [CONS] Routine OT Evaluation and Treatment [CONS] Stat PT Evaluation and Treatment [CONS] Routine Labs Pending at D/C: testing for multiple myeloma Recommended Follow-up Testing/Procedures: none Planned Operative Procedure(s) after DC: none Hospital Course: The patient was admitted and worked with PT and OT. She quickly improved over her 48 hour hospital stay and is felt stable for d/c back to assisted living with continued therapies from home health today. She has not taken any pain medication x 2 days and does not feel she needs this going home. Her home medications had otherwise been continued on admit. She did have an incidental finding of lytic lesions on her CT scan and is currently being evaluated for multiple myeloma. Those labs are pending at d/c and will need to be followed up on by her PCP. She will be referred for home health for PT and OT and is to follow-up with her PCP in clinic in 1 week. Her swing bed stay was otherwise uncomplicated. - Patient Instructions Diet: Usual Diet as Tolerated Activity: As Tolerated Driving: Do Not Drive Showering/Bathing: May Shower Notify Provider of: Fever, Increased Pain, Swelling and Redness, Nausea and/or Vomiting - Discharge Plan *PRESCRIPTION DRUG MONITORING PROGRAM REVIEWED*: No *COPY OF PRESCRIPTION DRUG MONITORING REPORT IN PATIENT JENNIFER: No Home Medications: Home Meds Cholecalciferol (Vitamin D3) [Vitamin D3] 2,000 units PO DAILY 03/23/15 [History] Aspirin [Halfprin] 81 mg PO DAILY 03/29/15 [History] Furosemide 20 mg PO DAILY PRN 12/12/18 [History] Losartan Potassium 12.5 mg PO DAILY 12/12/18 [History] Nitroglycerin 0.4 mg PO ASDIRECTED PRN 12/12/18 [History] Omeprazole 20 mg PO DAILY 12/12/18 [History] Ticagrelor [Brilinta] 90 mg PO BID 12/12/18 [History] Spironolactone [Aldactone] 12.5 mg PO DAILY 02/16/19 [History] Metoprolol Succinate [Toprol XL 50mg] 50 mg PO DAILY 04/10/19 [History] Docusate Sodium/Sennosides [Senokot-S] 2 tab PO BID PRN 05/20/19 [History] Ubidecarenone [Co Q-10] 200 mg PO DAILY 05/20/19 [History] glipiZIDE [Glipizide ER] 5 mg PO DAILY 05/20/19 [History] Gabapentin [Neurontin] 300 mg PO BID #60 cap 07/27/19 [Rx] Insulin Glarg,Human.Rec.Analog [Lantus Solostar] 5 units SUBCUT DAILY #5 pen 07/27/19 [Rx] Iron Polysaccharides Complex [Ferrex 150] 150 mg PO BID #60 cap 07/27/19 [Rx] allopurinoL [Zyloprim] 100 mg PO DAILY #30 tablet 07/27/19 [Rx] traZODone HCl [Trazodone HCl] 50 mg PO BEDTIME #30 tablet 07/27/19 [Rx] Magnesium Oxide 400 mg PO BID #60 tablet 07/28/19 [Rx] ALPRAZolam [Xanax] 0.25 mg PO DAILY PRN 01/15/21 [History] Acetaminophen 325 mg PO BID 01/15/21 [History] Acetaminophen 650 mg PO Q4H PRN 01/15/21 [History] Carboxymethylcellulose Sodium [Artificial Tears] 1 drop EYEBOTH ASDIRECTED PRN 01/15/21 [History] Furosemide 20 mg PO DAILY 01/15/21 [History] Nystatin [Nystatin Crm] 1 dose TOP DAILY PRN 01/15/21 [History] Triamcinolone Acetonide [Triamcinolone Acetonide 0.5%] 1 applic TOP BID 01/15/21 [History] Triamcinolone Acetonide [Triamcinolone Acetonide] 0 dose TOP BID 01/17/21 [Rx] Forms: ED Department Discharge Referrals: Freda Enciso MD [Primary Care Provider] - 01/24/21 11:00 am (You have a follow up appt. with Dr. Radha Enciso on January 24, 2021 at 11AM---[facility]. Please wear a mask to your appt.) - Discharge Summary/Plan Comment DC Time >30 min.: No - General Info Date of Service: 01/17/21 Subjective Update: Patient is seen for d/c back to [place]. PT states she did well today and the patient also feels today went well. They are all comfortable with her returning there with home health. She states her pain is controlled on plain tylenol and that she has not really been needing the norco. She is eating well and having no urinary or bowel issues. She denies any other questions or concerns. - Review of Systems General: Reports: No Symptoms HEENT: Reports: No Symptoms Pulmonary: Reports: No Symptoms Cardiovascular: Reports: No Symptoms Gastrointestinal: Reports: No Symptoms Genitourinary: Reports: No Symptoms Musculoskeletal: Reports: No Symptoms Skin: Reports: No Symptoms Neurological: Reports: No Symptoms - Patient Data Vitals - Most Recent: Last Vital Signs Temp 36.7 C 01/17/21 06:00 Pulse 64 01/17/21 07:48 Resp 18 01/17/21 06:00 BP 141/39 H 01/17/21 07:53 Pulse Ox 94 L 01/17/21 06:00 Weight - Most Recent: 68.946 kg I&O - Last 24 hours: Intake & Output 01/16/21 01/17/21 01/17/21 22:59 06:59 14:59 Intake Total 180 150 360 Output Total 100 300 Balance 80 -150 360 Lab Results - Last 24 hrs: Laboratory Results - last 24 hr 01/16/21 01/17/21 Range/Units 17:48 06:36 POC Glucose 105 131 H (74-106) mg/dL Med Orders - Current: Current Medications Hydrocodone Bitart/Acetaminophen (Acetaminophen/Hydrocodone 325-5 Mg Tab) 0.5 tab PO Q4H PRN PRN Reason: Pain (moderate 4-6) Allopurinol (Allopurinol 100 Mg Tab (Own Supply)) 100 mg PO DAILY PENDING SALE TO [facility] Last Admin: 01/17/21 07:42 Dose: 100 mg Documented by: Alprazolam (Alprazolam 0.25 Mg Tab (Own Supply)) 0.25 mg PO DAILY PRN PRN Reason: Anxiety Artificial Tears (Hypromellose 0.3% Ophth Soln 15 Ml Bottle) 0 ml EYEBOTH ASDIRECTED PRN PRN Reason: Dry Eyes Aspirin (Aspirin 81 Mg Tab.Ec (Own Supply)) 81 mg PO DAILY PENDING SALE TO [facility] Last Admin: 01/17/21 07:42 Dose: 81 mg Documented by: Furosemide (Furosemide 20 Mg Tab (Own Supply)) 20 mg PO DAILY PENDING SALE TO [facility] Last Admin: 01/17/21 07:51 Dose: 20 mg Documented by: Gabapentin (Gabapentin 300 Mg Cap (Own Supply)) 300 mg PO BID PENDING SALE TO [facility] Last Admin: 01/17/21 07:45 Dose: 300 mg Documented by: Glipizide (Glipizide 5 Mg Tab.Er (Own Supply)) 5 mg PO DAILY PENDING SALE TO [facility] Last Admin: 01/17/21 07:51 Dose: 5 mg Documented by: Insulin Glargine (Insulin Glarg,Human.Rec.Analog 100 Unit/Ml (Own Supply)) 5 unit SUBCUT DAILY PENDING SALE TO [facility] Last Admin: 01/17/21 07:54 Dose: 5 units Documented by: Losartan Potassium (Losartan 25 Mg Tab (Own Supply)) 12.5 mg PO DAILY PENDING SALE TO [facility] Last Admin: 01/17/21 07:53 Dose: 12.5 mg Documented by: Magnesium Oxide (Magnesium Oxide 400 Mg Tab (Own Supply)) 400 mg PO BID PENDING SALE TO [facility] Last Admin: 01/17/21 07:44 Dose: 400 mg Documented by: Metoprolol Succinate (Metoprolol Succinate 50 Mg Tab.Er (Own Supply)) 50 mg PO DAILY PENDING SALE TO [facility] Last Admin: 01/17/21 07:48 Dose: 50 mg Documented by: Triamcinolone Acetonide (Own Supply) 0 dose TOP BID PENDING SALE TO [facility] Last Admin: 01/17/21 08:00 Dose: Not Given Documented by: Ubidecarenone [Co Q- (10] 20 (Own Supply)) 200 mg PO DAILY PENDING SALE TO [facility] Last Admin: 01/17/21 07:43 Dose: 200 mg Documented by: Bioquinten (Own (Supply)) 1 each TOP QID PRN PRN Reason: Pain Cholecalciferol. ( Vit D3) 50mcg (Own Supply) 1 each PO DAILY PENDING SALE TO [facility] Last Admin: 01/17/21 07:48 Dose: 1 each Documented by: Nystatin (Nystatin Crm 30 Gm Tube) 0 gm TOP DAILY PRN PRN Reason: Rash Omeprazole (Omeprazole 20 Mg Cap.Cr (Own Supply)) 20 mg PO ACBREAKFAST PENDING SALE TO [facility] Last Admin: 01/17/21 07:50 Dose: 20 mg Documented by: Ondansetron HCl (Ondansetron 4 Mg Tab.Dis (Own Supply)) 4 mg PO Q6H PRN PRN Reason: nausea, able to take PO Polyethylene Glycol (Polyethylene Glycol 3350 Powder 17 Gm Packet) 17 gm PO DAILY PRN PRN Reason: Constipation Polysaccharide Iron Complex (Iron Polysaccharides Complex 150 Mg Cap (Own Supply)) 150 mg PO BID PENDING SALE TO [facility] Last Admin: 01/17/21 07:43 Dose: 150 mg Documented by: Senna/Docusate Sodium (Docusate Sodium/Sennosides 50-8.6 Mg Tab) 2 tab PO BID PRN PRN Reason: Constipation Spironolactone (Spironolactone 25 Mg Tab (Own Supply)) 12.5 mg PO DAILY PENDING SALE TO [facility] Last Admin: 01/17/21 07:48 Dose: 12.5 mg Documented by: Ticagrelor (Ticagrelor 90 Mg Tab (Own Supply)) 90 mg PO BID PENDING SALE TO [facility] Last Admin: 01/17/21 07:41 Dose: 90 mg Documented by: Trazodone HCl (Trazodone 50 Mg Tab (Own Supply)) 50 mg PO BEDTIME PENDING SALE TO [facility] Last Admin: 01/16/21 20:12 Dose: 50 mg Documented by: Discontinued Medications Hydrocodone Bitart/Acetaminophen (Acetaminophen/Hydrocodone 325-5 Mg Tab) 1 tab PO Q4H PRN PRN Reason: Pain (moderate 4-6) Last Admin: 01/16/21 06:26 Dose: 1 tab Documented by: Hydrocodone Bitart/Acetaminophen (Acetaminophen/Hydrocodone 325-5 Mg Tab (Own Supply)) 1 tab PO Q4H PRN PRN Reason: Pain (moderate 4-6) Hydrocodone Bitart/Acetaminophen (Acetaminophen/Hydrocodone 325-5 Mg Tab) 1 tab PO Q4H PRN PRN Reason: Pain (moderate 4-6) Last Admin: 01/16/21 14:15 Dose: 1 tab Documented by: Allopurinol (Allopurinol 100 Mg Tab) 100 mg PO DAILY PENDING SALE TO [facility] Last Admin: 01/16/21 10:49 Dose: Not Given Documented by: Alprazolam (Alprazolam 0.25 Mg Tab) 0.25 mg PO DAILY PRN PRN Reason: Anxiety Aspirin (Aspirin 81 Mg Tab.Ec) 81 mg PO DAILY PENDING SALE TO [facility] Last Admin: 01/16/21 10:50 Dose: Not Given Documented by: Docusate Sodium (Docusate Sodium 100 Mg Cap) 100 mg PO BID PRN PRN Reason: Constipation Furosemide (Furosemide 20 Mg Tab) 20 mg PO DAILY PENDING SALE TO [facility] Last Admin: 01/16/21 10:50 Dose: Not Given Documented by: Gabapentin (Gabapentin 300 Mg Cap) 300 mg PO BID PENDING SALE TO [facility] Last Admin: 01/16/21 10:50 Dose: Not Given Documented by: Glipizide (Glipizide 2.5 Mg Tab.Er) 5 mg PO DAILY PENDING SALE TO [facility] Last Admin: 01/16/21 10:51 Dose: Not Given Documented by: Hydromorphone HCl (Hydromorphone 0.5 Mg/0.5 Ml Syringe) 0.5 mg IV ONETIME ONE Stop: 01/15/21 13:23 Last Admin: 01/15/21 13:30 Dose: 0.5 mg Documented by: Hydromorphone HCl (Hydromorphone 0.5 Mg/0.5 Ml Syringe) 0.5 mg IVPUSH Q2H PRN PRN Reason: Pain (severe 7-10) Influenza Virus Vaccine (Pharmacy To Dose - Influenza Vaccine) 1 each IM ONETIME ONE Stop: 01/15/21 16:40 Influenza Virus Vaccine (Flu Vacc [id number](65yr Up)/Pf 240 Mcg/0.7 Ml Syringe) 240 mcg IM .ONCE ONE Stop: 01/15/21 16:46 Insulin Glargine (Insulin Glarg,Human.Rec.Analog 100 Unit/Ml) 5 unit SUBCUT DAILY PENDING SALE TO [facility] Last Admin: 01/16/21 10:50 Dose: Not Given Documented by: Losartan Potassium (Losartan 25 Mg Tab) 12.5 mg PO DAILY PENDING SALE TO [facility] Last Admin: 01/16/21 10:51 Dose: Not Given Documented by: Magnesium Oxide (Magnesium Oxide 400 Mg Tab) 400 mg PO BID PENDING SALE TO [facility] Last Admin: 01/16/21 10:50 Dose: Not Given Documented by: Metoprolol Succinate (Metoprolol Succinate 50 Mg Tab.Er) 50 mg PO DAILY PENDING SALE TO [facility] Last Admin: 01/16/21 10:49 Dose: Not Given Documented by: Non-Formulary Medication (Non-Formulary Medication 1 Each) 1 each TOP QID PRN PRN Reason: Pain Nystatin (Nystatin Crm 30 Gm Tube) 0 gm TOP DAILY PRN PRN Reason: Rash Omeprazole (Omeprazole 20 Mg Cap.Cr) 20 mg PO ACBREAKFAST PENDING SALE TO [facility] Last Admin: 01/16/21 06:24 Dose: 20 mg Documented by: Ondansetron HCl (Ondansetron 4 Mg Tab.Dis) 4 mg PO Q6H PRN PRN Reason: nausea, able to take PO Polysaccharide Iron Complex (Iron Polysaccharides Complex 150 Mg Cap) 150 mg PO BID PENDING SALE TO [facility] Last Admin: 01/16/21 10:51 Dose: Not Given Documented by: Spironolactone (Spironolactone 25 Mg Tab) 12.5 mg PO DAILY PENDING SALE TO [facility] Last Admin: 01/16/21 10:51 Dose: Not Given Documented by: Ticagrelor (Ticagrelor 90 Mg Tab) 90 mg PO BID PENDING SALE TO [facility] Last Admin: 01/16/21 10:51 Dose: Not Given Documented by: Trazodone HCl (Trazodone 50 Mg Tab) 50 mg PO BEDTIME PENDING SALE TO [facility] Last Admin: 01/15/21 20:47 Dose: 50 mg Documented by: - Exam General: Reports: Alert, Cooperative, No Acute Distress HEENT: Reports: Mucous Membr. Moist/[place] Neck: Reports: Supple, Trachea Midline, No Thyromegaly. 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
== END 2021-01-17 14:35 | disposition home or self-care (01) | DRG 560 ==
LOC: VM.ED 13:08 → UNDOADMIN 15:30 → VM.MS 15:30 → VM.ED 15:45 → EDSTATUS 01-17 08:00 → UNDODISIN 01-17 14:35
PROVIDERS: ADMIT Physician Assistant; ATTEND Family Medicine
DX: S62.306D Unspecified fracture of fifth metacarpal bone, right hand, subsequent encounter for fracture with routine healing (principal); I50.32 Chronic diastolic (congestive) heart failure; I13.0 Hypertensive heart and chronic kidney disease with heart failure and stage 1 through stage 4 chronic kidney disease, or unspecified chronic kidney disease; M89.8X9 Other specified disorders of bone, unspecified site; S62.316D Displaced fracture of base of fifth metacarpal bone, right hand, subsequent encounter for fracture with routine healing; S00.83XD Contusion of other part of head, subsequent encounter; S30.0XXD Contusion of lower back and pelvis, subsequent encounter; S16.1XXD Strain of muscle, fascia and tendon at neck level, subsequent encounter; I25.10 Atherosclerotic heart disease of native coronary artery without angina pectoris; M54.5 Low back pain; G89.29 Other chronic pain; I73.9 Peripheral vascular disease, unspecified; E78.00 Pure hypercholesterolemia, unspecified; I11.0 Hypertensive heart disease with heart failure; K21.9 Gastro-esophageal reflux disease without esophagitis; M10.9 Gout, unspecified; M54.9 Dorsalgia, unspecified; D64.9 Anemia, unspecified; Z66 Do not resuscitate; N18.30 Chronic kidney disease, stage 3 unspecified; E11.22 Type 2 diabetes mellitus with diabetic chronic kidney disease; G31.84 Mild cognitive impairment of uncertain or unknown etiology; Z88.8 Allergy status to other drugs, medicaments and biological substances; Z88.0 Allergy status to penicillin; Z91.013 Allergy to seafood; Z79.82 Long term (current) use of aspirin; Z79.899 Other long term (current) drug therapy; Z79.4 Long term (current) use of insulin; I25.2 Old myocardial infarction; Z90.710 Acquired absence of both cervix and uterus; Z98.49 Cataract extraction status, unspecified eye; W19.XXXD Unspecified fall, subsequent encounter
CPT/HCPCS: 36415; 70450; 72125; 72131; 73090-RT; 73130-50; 80048; 80053; 82962; 83735; 83883; 84156; 84166; 85025; 86335; 97116-GP; 97163-GP; 97165-GO; 97530-GP; 99306; A9270-GY; J1170; J1815-GY

== ENCOUNTER 2021-06-04 17:35 | Emergency (ER) | payer MEDICARE, OTHER ==
--- NOTE | 2021-06-04 18:03 | EDM.PDOC ---
ED HPI GENERAL MEDICAL PROBLEM - General Time Seen by Provider: 06/04/21 18:02 Source of Information: Reports: Patient, Provider (Dr. Enciso), RN, RN Notes Reviewed - History of Present Illness INITIAL COMMENTS - FREE TEXT/NARRATIVE: Pt is an 86 year old female who presents to ER from [facility] with c/o RUQ pain for the past month or longer. Patient states she has history of gallstones, but had a NSTEMI just prior to that finding, so a ERCP was performed and stents placed in the pancreas. Patient records show the patient was to follow up 6 months later for ERCP and stent removal. This was not completed due to bilateral lower extremity amputations. Patient reports the pain for the past 1-2 months. She states worsens with positioning and while sitting up. She denies any fever or chills, N/V/D, chest pains or SOB. Onset: Gradual Right Abdominal Pain Score (Numeric/FACES): 5 - Related Data Allergies Allergy/AdvReac Type Severity Reaction Status Date / Time shellfish derived Allergy Severe Anaphylactic Verified 01/15/21 14:39 Shock cefuroxime axetil Allergy Hives Verified 01/15/21 14:39 [From Ceftin] Cephalosporins Allergy Cannot Verified 01/15/21 15:59 Remember Penicillins Allergy Other Verified 01/15/21 14:39 tetanus toxoid, adsorbed Allergy Other Verified 01/15/21 14:39 gemfibrozil [From Lopid] AdvReac Muscle Verified 01/15/21 14:39 Aches metformin AdvReac Renal Verified 01/15/21 14:39 Insufficiency morphine AdvReac Hypotension Verified 01/15/21 14:39 simvastatin [From Zocor] AdvReac Muscle Verified 01/15/21 14:39 Aches Flmzhcs-Bqj-Pye Reductase AdvReac Muscle Verified 01/15/21 14:39 Inhibitor Aches Home Meds: Home Meds Cholecalciferol (Vitamin D3) [Vitamin D3] 2,000 units PO DAILY 03/23/15 [History] Aspirin [Halfprin] 81 mg PO DAILY 03/29/15 [History] Furosemide 20 mg PO DAILY PRN 12/12/18 [History] Losartan Potassium 12.5 mg PO DAILY 12/12/18 [History] Nitroglycerin 0.4 mg PO ASDIRECTED PRN 12/12/18 [History] Omeprazole 20 mg PO DAILY 12/12/18 [History] Ticagrelor [Brilinta] 90 mg PO BID 12/12/18 [History] Spironolactone [Aldactone] 12.5 mg PO DAILY 02/16/19 [History] Metoprolol Succinate [Toprol XL 50mg] 50 mg PO DAILY 04/10/19 [History] Docusate Sodium/Sennosides [Senokot-S] 2 tab PO BID PRN 05/20/19 [History] Ubidecarenone [Co Q-10] 200 mg PO DAILY 05/20/19 [History] glipiZIDE [Glipizide ER] 5 mg PO DAILY 05/20/19 [History] Gabapentin [Neurontin] 300 mg PO BID #60 cap 07/27/19 [Rx] Insulin Glarg,Human.Rec.Analog [Lantus Solostar] 5 units SUBCUT DAILY #5 pen 07/27/19 [Rx] Iron Polysaccharides Complex [Ferrex 150] 150 mg PO BID #60 cap 07/27/19 [Rx] allopurinoL [Zyloprim] 100 mg PO DAILY #30 tablet 07/27/19 [Rx] traZODone HCl [Trazodone HCl] 50 mg PO BEDTIME #30 tablet 07/27/19 [Rx] Magnesium Oxide 400 mg PO BID #60 tablet 07/28/19 [Rx] ALPRAZolam [Xanax] 0.25 mg PO DAILY PRN 01/15/21 [History] Acetaminophen 325 mg PO BID 01/15/21 [History] Acetaminophen 650 mg PO Q4H PRN 01/15/21 [History] Carboxymethylcellulose Sodium [Artificial Tears] 1 drop EYEBOTH ASDIRECTED PRN 01/15/21 [History] Furosemide 20 mg PO DAILY 01/15/21 [History] Nystatin [Nystatin Crm] 1 dose TOP DAILY PRN 01/15/21 [History] Triamcinolone Acetonide [Triamcinolone Acetonide 0.5%] 1 applic TOP BID 01/15/21 [History] Triamcinolone Acetonide [Triamcinolone Acetonide] 0 dose TOP BID 01/17/21 [Rx] Past Medical History HEENT History: Reports: Cataract, Other (See Below) Other HEENT History: VITREOUS DETACHMENT, DRY EYE, MYOPIA, PRESBYOPIA. pseudophakia Cardiovascular History: Reports: CAD, Heart Failure, High Cholesterol, Hyperte nsion, PVD Other Cardiovascular History: SYSTOLIC MURMUR, VARICOSE VIENS. non-rheumatic mitral valve stenosis. cardiac LV ejection fraction 10-20%. NSTEMI. non- rheumatic mitral valve stenosis. peripheral artery disease Gastrointestinal History: Reports: Cholelithiasis, Colon Polyp, GERD Other Gastrointestinal History: ABDOMINAL PAIN. cholecystitis. dyspepsia Genitourinary History: Reports: Renal Disease Other Genitourinary History: PROTEINURIA. midline cystocele Musculoskeletal History: Reports: Back Pain, Chronic, Fibromyalgia, Gout Other Musculoskeletal History: RT LEG PAIN, WRIST PAIN, GANGLION TENDON SHEATH OF RIGHT INDEX FINGER, CARPAL TUNNEL SYNDROME. LIPOM A LEFT LOWER EXTREMITY. CHRONIC PAIN R FOOT. LEFT WRIST PAIN. central stenosis of spinal cord. fibromyalgia. L HIP PAIN Neurological History: Reports: Other (See Below) Other Neuro History: cognitive dysfunction Psychiatric History: Reports: Other (See Below) Other Psychiatric History: COGNITIVE DYSFUNCTION Endocrine/Metabolic History: Reports: Diabetes, Type II, Other (See Below) Other Endocrine/Metabolic History: MALAISE AND FATIGUE. DIABETES MELLITUS. HYPOMAGNESEMIA Hematologic History: Reports: Anemia, Other (See Below) Other Hematologic History: hypomagnesemia Oncologic (Cancer) History: Reports: Squamous Cell Carcinoma Other Dermatologic History: DERMATOCHALASIS, ACTINIC KERATOSIS - Infectious Disease History Infectious Disease History: Reports: Novel Coronavirus Other Infectious Disease History: mssa - Past Surgical History HEENT Surgical History: Reports: Adenoidectomy, Cataract Surgery, Tonsillectomy GI Surgical History: Reports: ERCP Female Surgical History: Reports: Breast Biopsy, Hysterectomy, Other (See Below) Social & Family History - Family History Family Medical History: No Pertinent Family History - Caffeine Use Caffeine Use: Reports: Coffee ED ROS GENERAL - Review of Systems Review Of Systems: Comprehensive ROS is negative, except as noted in HPI. ED EXAM, GI/ABD - Physical Exam Exam: See Below Exam Limited By: No Limitations General Appearance: Alert, WD/WN, No Apparent Distress Eyes: Bilateral: Normal Appearance, EOMI Ears: Normal External Exam, Hearing Grossly Normal Nose: Normal Inspection Throat/Mouth: Normal Inspection, Normal Voice, No Airway Compromise Head: Atraumatic, Normocephalic Neck: Normal Inspection, Supple, Non-Tender, Full Range of Motion Respiratory/Chest: No Respiratory Distress, Lungs Clear, Normal Breath Sounds, No Accessory Muscle Use, Chest Non-Tender, Decreased Breath Sounds Cardiovascular: Normal Peripheral Pulses, Regular Rate, Rhythm, No Edema, No Gallop, No JVD, No Murmur, No Rub GI/Abdominal Exam: Normal Bowel Sounds, Soft, No Distention, No Abnormal Bruit, No Mass, Pelvis Stable, Tender (RUQ) (Female) Exam: Deferred Rectal (Female) Exam: Deferred Back Exam: Normal Inspection, Full Range of Motion, CVA Tenderness (R) Extremities: Normal Inspection, Normal Range of Motion, Non-Tender, Normal Capillary Refill, No Pedal Edema Neurological: Alert, Oriented, CN II-XII Intact, Normal Cognition, Normal Gait, Normal Reflexes, No Motor/Sensory Deficits Psychiatric: Normal Affect, Normal Mood Skin Exam: Warm, Dry, Intact, Normal Color, No Rash Lymphatic: No Adenopathy Course - Vital Signs Last Recorded V/S: Last Vital Signs Temp 98.0 F 06/04/21 18:06 Pulse 66 06/04/21 18:06 Resp 18 06/04/21 18:06 BP 178/70 H 06/04/21 18:06 Pulse Ox 96 06/04/21 18:06 - Orders/Labs/Meds Orders: Active Orders 24 hr Category Date Time Status CULTURE URINE [RM] Stat Lab 06/04/21 18:53 Received Labs: Laboratory Tests 06/04/21 06/04/21 06/04/21 Range/Units 18:27 18:27 18:27 WBC 5.8 (4.0-10.0) x10^3/uL RBC 3.86 L (4.00-5.50) x10^6/uL Hgb 12.0 (12.0-16.0) g/dL Hct 35.2 (33.0-47.0) % MCV 91.2 (78.0-93.0) fL MCH 31.1 (26.0-32.0) pg MCHC 34.1 (32.0-36.0) g/dL RDW Coeff of Johnathan 12.8 (10.0-15.0) % Plt Count 210 (130-400) x10^3/uL Immature Gran % (Auto) 0.20 (0.00-0.43) % Neut % (Auto) 67.0 (50.0-80.0) % Lymph % (Auto) 21.1 L (25.0-50.0) % [place] % (Auto) 9.0 (2.0-11.0) % Eos % (Auto) 2.4 (0.0-4.0) % Baso % (Auto) 0.3 (0.2-1.2) % Neut # (Auto) 3.9 (1.8-7.7) x10^3/uL Lymph # (Auto) 1.2 (1.0-4.8) x10^3/uL [place] # (Auto) 0.5 (0.0-0.8) x10^3/uL Eos # (Auto) 0.1 (0.0-0.5) x10^3/uL Baso # (Auto) 0.0 (0.0-0.2) x10^3/uL Immature Gran # (Auto) 0.01 (0.00-0.07) x10^3/uL PT 9.8 L (9.9-12.5) SEC INR 0.9 L (2.0-3.5) Sodium 139 (136-145) mmol/L Potassium 3.7 (3.5-5.1) mmol/L Chloride 103 (98-107) mmol/L Carbon Dioxide 28 (21-32) mmol/L Anion Gap 11.7 (5-15) mmol/L BUN 28 H (7-18) mg/dL Creatinine 1.6 H (0.55-1.02) mg/dL Est Cr Clr Drug Dosing 21.79 mL/min Estimated GFR (MDRD) 31 Glucose 110 H (70-99) mg/dL Calcium 8.7 (8.5-10.1) mg/dL Corrected Calcium 9.3 (8.5-10.1) mg/dL Total Bilirubin 0.5 (0.2-1.0) mg/dL AST 12 L (15-37) U/L ALT 13 L (14-59) U/L Alkaline Phosphatase 88 (46-116) U/L C-Reactive Protein 0.5 (<=0.9) mg/dL Total Protein 7.2 (6.4-8.2) g/dL Albumin 3.3 L (3.4-5.0) g/dL Globulin 3.9 Albumin/Globulin Ratio 0.85 Amylase 62 (25-115) U/L Lipase 111 (73-393) U/L Urine Color (YELLOW) Urine Appearance (CLEAR) Urine pH (5.0-8.0) Ur Specific [place] Urine Protein (NEGATIVE) mg/dL Urine Glucose (UA) (NEGATIVE) mg/dL Urine Ketones (NEGATIVE) mg/dL Urine Occult Blood (NEGATIVE) Urine Nitrite (NEGATIVE) Urine Bilirubin (NEGATIVE) Urine Urobilinogen (0.2) EU/dL Ur Leukocyte Esterase (NEGATIVE) Urine RBC (NOT SEEN) /HPF Urine WBC (NOT SEEN) /HPF Ur Squamous Epith Cells (NOT SEEN) /HPF Urine Bacteria (NOT SEEN) /HPF Urine Mucus (NOT SEEN) /LPF 06/04/21 Range/Units 18:53 WBC (4.0-10.0) x10^3/uL RBC (4.00-5.50) x10^6/uL Hgb (12.0-16.0) g/dL Hct (33.0-47.0) % MCV (78.0-93.0) fL MCH (26.0-32.0) pg MCHC (32.0-36.0) g/dL RDW Coeff of Johnathan (10.0-15.0) % Plt Count (130-400) x10^3/uL Immature Gran % (Auto) (0.00-0.43) % Neut % (Auto) (50.0-80.0) % Lymph % (Auto) (25.0-50.0) % [place] % (Auto) (2.0-11.0) % Eos % (Auto) (0.0-4.0) % Baso % (Auto) (0.2-1.2) % Neut # (Auto) (1.8-7.7) x10^3/uL Lymph # (Auto) (1.0-4.8) x10^3/uL [place] # (Auto) (0.0-0.8) x10^3/uL Eos # (Auto) (0.0-0.5) x10^3/uL Baso # (Auto) (0.0-0.2) x10^3/uL Immature Gran # (Auto) (0.00-0.07) x10^3/uL PT (9.9-12.5) SEC INR (2.0-3.5) Sodium (136-145) mmol/L Potassium (3.5-5.1) mmol/L Chloride (98-107) mmol/L Carbon Dioxide (21-32) mmol/L Anion Gap (5-15) mmol/L BUN (7-18) mg/dL Creatinine (0.55-1.02) mg/dL Est Cr Clr Drug Dosing mL/min Estimated GFR (MDRD) Glucose (70-99) mg/dL Calcium (8.5-10.1) mg/dL Corrected Calcium (8.5-10.1) mg/dL Total Bilirubin (0.2-1.0) mg/dL AST (15-37) U/L ALT (14-59) U/L Alkaline Phosphatase (46-116) U/L C-Reactive Protein (<=0.9) mg/dL Total Protein (6.4-8.2) g/dL Albumin (3.4-5.0) g/dL Globulin Albumin/Globulin Ratio Amylase (25-115) U/L Lipase (73-393) U/L Urine Color Light yellow (YELLOW) Urine Appearance Slightly cloudy H (CLEAR) Urine pH 7.0 (5.0-8.0) Ur Specific [place] 1.020 Urine Protein Negative (NEGATIVE) mg/dL Urine Glucose (UA) Negative (NEGATIVE) mg/dL Urine Ketones Negative (NEGATIVE) mg/dL Urine Occult Blood Negative (NEGATIVE) Urine Nitrite Negative (NEGATIVE) Urine Bilirubin Negative (NEGATIVE) Urine Urobilinogen 0.2 (0.2) EU/dL Ur Leukocyte Esterase Small H (NEGATIVE) Urine RBC 0-5 (NOT SEEN) /HPF Urine WBC 5-10 H (NOT SEEN) /HPF Ur Squamous Epith Cells Many H (NOT SEEN) /HPF Urine Bacteria Many H (NOT SEEN) /HPF Urine Mucus Not seen (NOT SEEN) /LPF Meds: Medications Discontinued Medications Generic Name Dose Route Start Last Admin Trade Name Freq PRN Reason Stop Dose Admin Nitrofurantoin Macrocrystals 100 mg 06/04/21 20:06 Nitrofurantoin Monohydrate/Macrocrystalline 100 Mg Cap PO 06/04/21 20:07 ONETIME ONE - Radiology Interpretation Free Text/Narrative:: CT abdomen pelvis without contrast: No acute findings See radiologist report Departure - Departure Time of Disposition: 20:16 Disposition: Home, Self-Care 01 Condition: Good Clinical Impression: Abdominal pain Qualifiers: Abdominal location: right upper quadrant Qualified Code(s): R10.11 - Right upper quadrant pain - Discharge Information *PRESCRIPTION DRUG MONITORING PROGRAM REVIEWED*: No *COPY OF PRESCRIPTION DRUG MONITORING REPORT IN PATIENT JENNIFER: No Instructions: Abdominal Pain, Adult, Ci[facility]-wh-Sasa Referrals: Freda Enciso MD [Primary Care Provider] - Forms: ED Department Discharge Additional Instructions: Rx: Macrobid 100 mg twice daily for 5 days Follow-up with your primary care provider Call [facility] for follow up ERCP (DR. SHANNAN BURRIS) Continue to use Tylenol as directed for pain Return to the ER with any worsening of symptoms Sepsis Event Note (ED) - Focused Exam Vital Signs: Vital Signs Temp Pulse Resp BP Pulse Ox 06/04/21 18:06 98.0 F 66 18 178/70 H 96 - My Orders Last 24 Hours: My Active Orders 06/04/21 18:53 CULTURE URINE [RM] Stat - Assessment/Plan Last 24 Hours: My Active Orders 06/04/21 18:53 CULTURE URINE [RM] Stat
[2021-06-04 19:01] LABS: ANION GAP 11.7 mmol/L (5-15)
--- NOTE | 2021-06-04 20:01 | CT ---
[id number] CT/CT Abdomen Pelvis WO IV Exam: CT Abdomen Pelvis WO IV Clinical Data: HISTORY OF PANCREATIC STENT COMPARISON: CORRELATION IS MADE WITH 2019 FINDINGS: The stent appears unchanged in position There is no pancreatitis There are gallstones The gallbladder is slightly distended There is air in the biliary tree again seen Lack of IV contrast limits the study The liver and spleen, kidneys and adrenals, pancreas and aorta otherwise are unremarkable The pelvis shows no mass or adenopathy The appendix appears normal IMPRESSION: NO CHANGE SINCE LAST Mack Roque MD 06/04/211958 Thank you for allowing us to participate in the care of your patient.
[2021-06-04] MEDS: Nitrofurantoin Monohydrate/Macrocrystalline 100 MG Cap PO ONE (20:40)
[2021-06-05 00:22] VITALS: BP 195/72; PULSE 64
== END 2021-06-04 20:51 | disposition home or self-care (01) ==
LOC: VM.ED 17:35
DX: R10.11 Right upper quadrant pain (principal); I11.0 Hypertensive heart disease with heart failure; I50.9 Heart failure, unspecified; I25.10 Atherosclerotic heart disease of native coronary artery without angina pectoris; K21.9 Gastro-esophageal reflux disease without esophagitis; M10.9 Gout, unspecified; E11.9 Type 2 diabetes mellitus without complications; D64.9 Anemia, unspecified; Z91.013 Allergy to seafood; Z88.1 Allergy status to other antibiotic agents; Z88.0 Allergy status to penicillin; Z88.7 Allergy status to serum and vaccine; Z88.8 Allergy status to other drugs, medicaments and biological substances; Z88.5 Allergy status to narcotic agent; Z79.82 Long term (current) use of aspirin; Z79.4 Long term (current) use of insulin; Z79.899 Other long term (current) drug therapy
CPT/HCPCS: 36415; 74176; 80053; 81001; 82150; 83690; 85025; 85610; 86140; 87086; 87088; 87186; 99284; 99284-25; A9270-GY

== ENCOUNTER 2022-06-12 16:08 | Emergency (ER) | payer MEDICARE, OTHER ==
[2022-06-12 17:55] VITALS: BP 190/85; PULSE 80
== END 2022-06-12 18:54 | disposition home health service (06) ==
LOC: VM.ED 16:08
DX: U07.1 COVID-19 (principal); I25.10 Atherosclerotic heart disease of native coronary artery without angina pectoris; I11.0 Hypertensive heart disease with heart failure; I50.9 Heart failure, unspecified; E78.00 Pure hypercholesterolemia, unspecified; K21.9 Gastro-esophageal reflux disease without esophagitis; E11.9 Type 2 diabetes mellitus without complications; Z88.5 Allergy status to narcotic agent; Z88.8 Allergy status to other drugs, medicaments and biological substances; Z79.82 Long term (current) use of aspirin; Z79.02 Long term (current) use of antithrombotics/antiplatelets; Z79.899 Other long term (current) drug therapy
CPT/HCPCS: 71045; 99284; 99285

== ENCOUNTER 2022-08-10 08:33 | Emergency (ER) | payer MEDICARE, OTHER ==
[2022-08-10] MEDS ORDERED: Sodium Chloride 0.9% 10 ML Syringe FLUSH PRN (09:12)
[2022-08-10] MEDS ORDERED: Ondansetron 4 MG/2 ML SDV IVPUSH ONE (09:13)
[2022-08-10] MEDS ORDERED: HYDROmorphone 0.5 MG/0.5 ML Syringe IVPUSH ONE (09:14)
[2022-08-10] MEDS ORDERED: Sodium Chloride 0.9% 1,000 ML IV SCH (09:15)
[2022-08-10 09:54] LABS: CHLORIDE,CL 103 mmol/L (98-107); ESTIMATED GFR 44 mL/min (>=60); SODIUM,NA 138 mmol/L (136-145)
[2022-08-10 10:17] VITALS: BP 157/77; PULSE 72
== END 2022-08-10 11:48 | disposition home or self-care (01) ==
LOC: VM.ED 08:33
DX: N39.0 Urinary tract infection, site not specified (principal); R19.7 Diarrhea, unspecified; I25.10 Atherosclerotic heart disease of native coronary artery without angina pectoris; I11.0 Hypertensive heart disease with heart failure; I50.9 Heart failure, unspecified; E78.00 Pure hypercholesterolemia, unspecified; K21.9 Gastro-esophageal reflux disease without esophagitis; M10.9 Gout, unspecified; E11.9 Type 2 diabetes mellitus without complications; D64.9 Anemia, unspecified; Z88.8 Allergy status to other drugs, medicaments and biological substances; Z91.013 Allergy to seafood; Z88.1 Allergy status to other antibiotic agents; Z88.0 Allergy status to penicillin; Z88.7 Allergy status to serum and vaccine; Z88.5 Allergy status to narcotic agent; Z79.82 Long term (current) use of aspirin; Z79.899 Other long term (current) drug therapy; Z79.4 Long term (current) use of insulin
CPT/HCPCS: 80053; 81001; 83735; 84100; 85025; 87086; 87088; 87186; 96361; 96374; 96375; 99284; J1170; J2405; J7030

== ENCOUNTER 2022-08-29 23:29 | Emergency (ER) | payer MEDICARE, OTHER ==
[2022-08-30 00:10] LABS: CHLORIDE,CL 104 mmol/L (98-107); SODIUM,NA 141 mmol/L (136-145)
[2022-08-30 00:12] LABS: ANION GAP 11.1 mmol/L (5-15); ESTIMATED GFR 31 mL/min (>=60)
[2022-08-30 00:17] VITALS: BP 152/73; PULSE 80
[2022-08-30] MEDS: Acetaminophen/HYDROcodone 325-5 MG Tab PO ONE (00:35)
[2022-08-30] MEDS: Sulfamethoxazole/Trimethoprim 800-160 MG Tab PO ONE (01:46)
== END 2022-08-30 02:00 | disposition home or self-care (01) ==
LOC: VM.ED 23:29
DX: N39.0 Urinary tract infection, site not specified (principal); I25.10 Atherosclerotic heart disease of native coronary artery without angina pectoris; I11.0 Hypertensive heart disease with heart failure; I50.9 Heart failure, unspecified; K21.9 Gastro-esophageal reflux disease without esophagitis; M10.9 Gout, unspecified; E11.9 Type 2 diabetes mellitus without complications; E78.00 Pure hypercholesterolemia, unspecified; Z89.512 Acquired absence of left leg below knee; Z89.511 Acquired absence of right leg below knee; Z91.013 Allergy to seafood; Z88.1 Allergy status to other antibiotic agents; Z88.0 Allergy status to penicillin; Z88.7 Allergy status to serum and vaccine; Z88.8 Allergy status to other drugs, medicaments and biological substances; Z88.5 Allergy status to narcotic agent; Z79.82 Long term (current) use of aspirin; Z79.4 Long term (current) use of insulin; Z79.899 Other long term (current) drug therapy
CPT/HCPCS: 36415; 74019; 80053; 81001; 83690; 84484; 85025; 86140; 87086; 87088; 87186; 99284; A9270

== ENCOUNTER 2022-09-07 17:06 | Emergency (ER) | payer MEDICARE, OTHER ==
[2022-09-07 17:29] VITALS: BP 170/84; PULSE 70
[2022-09-07] MEDS ORDERED: Phenylephrine Supp RECTAL PRN (18:14)
[2022-09-07] MEDS ORDERED: Hydrocortisone 1% Crm 30 GM Tube TOP ONE (18:30)
== END 2022-09-07 18:40 | disposition home or self-care (01) ==
LOC: VM.ED 17:06
DX: K64.8 Other hemorrhoids (principal); I11.0 Hypertensive heart disease with heart failure; I50.9 Heart failure, unspecified; I25.10 Atherosclerotic heart disease of native coronary artery without angina pectoris; Z91.013 Allergy to seafood; Z88.1 Allergy status to other antibiotic agents; Z88.0 Allergy status to penicillin; Z88.6 Allergy status to analgesic agent; Z79.899 Other long term (current) drug therapy; Z79.82 Long term (current) use of aspirin; Z90.710 Acquired absence of both cervix and uterus
CPT/HCPCS: 74019; 99284

== ENCOUNTER 2022-09-09 11:37 | Inpatient (IN) | payer MEDICARE, OTHER ==
[2022-09-09] MEDS ORDERED: Sodium Chloride 0.9% 10 ML Syringe FLUSH PRN (13:38)
[2022-09-09] MEDS ORDERED: Furosemide 20 MG/2 ML VIAL IV SCH (17:00)
[2022-09-09] MEDS ORDERED: Nitroglycerin 0.4 MG Tab.SL SL PRN (18:56)
[2022-09-09] MEDS ORDERED: Hypromellose 0.3% Ophth Soln 15 ML Bottle EYEBOTH PRN (18:56)
[2022-09-09] MEDS ORDERED: Nystatin Crm 30 GM Tube TOP PRN (19:13)
[2022-09-09] MEDS: Gabapentin 100 MG Cap PO SCH (20:10)
[2022-09-09] MEDS: traZODone 50 MG Tab PO SCH (20:10)
[2022-09-09] MEDS: Magnesium Oxide 400 MG Tab PO SCH (20:11)
[2022-09-09] MEDS: Iron Polysaccharides Complex 150 MG Cap PO SCH (20:11)
[2022-09-09] MEDS: Acetaminophen 325 MG Tab PO PRN (21:51)
[2022-09-09] MEDS: Triamcinolone Acetonide 0.1% Crm 15 GM Tube TOP SCH (21:54)
[2022-09-09] MEDS: ALPRAZolam 0.25 MG Tab PO PRN (22:41)
[2022-09-10 07:18] LABS: ANION GAP 9.6 mmol/L (5-15)
[2022-09-10] MEDS ORDERED: Metoprolol Succinate 50 MG Tab.ER PO SCH (09:00)
[2022-09-10] MEDS: Insulin Glarg,Human.Rec.Analog 100 Unit/ML SUBCUT SCH (10:23)
[2022-09-10] MEDS: Allopurinol 100 MG Tab PO SCH (10:24)
[2022-09-10] MEDS: Losartan 25 MG Tab PO SCH (10:25)
[2022-09-10] MEDS: Magnesium Oxide 400 MG Tab PO SCH ×2 (10:26→20:31)
[2022-09-10] MEDS: Aspirin 81 MG Tab.EC PO SCH (10:26)
[2022-09-10] MEDS: Cholecalciferol (Vitamin D3) 25 MCG Tab PO SCH (10:26)
[2022-09-10] MEDS: Potassium Chloride 20 MEQ Tab.ER PO SCH (10:26)
[2022-09-10] MEDS: Cyanocobalamin (Vitamin B12) 1,000 MCG Tab PO SCH (10:26)
[2022-09-10] MEDS: Omeprazole 20 MG Cap.CR PO SCH (10:26)
[2022-09-10] MEDS: glipiZIDE 5 MG Tab.ER PO SCH (10:27)
[2022-09-10] MEDS: Furosemide 20 MG/2 ML VIAL IV SCH ×2 (10:28→17:14)
[2022-09-10] MEDS: Triamcinolone Acetonide 0.1% Crm 15 GM Tube TOP SCH ×2 (10:38→20:31)
[2022-09-10] MEDS: Spironolactone 25 MG Tab PO SCH (10:39)
[2022-09-10] MEDS: Acetaminophen 325 MG Tab PO PRN ×2 (10:46→15:32)
[2022-09-10] MEDS ORDERED: Polyethylene Glycol 3350 Powder 17 GM Packet PO PRN (12:54)
[2022-09-10] MEDS: ALPRAZolam 0.25 MG Tab PO PRN (20:30)
[2022-09-10] MEDS: Gabapentin 100 MG Cap PO SCH (20:30)
[2022-09-10] MEDS: traZODone 50 MG Tab PO SCH (20:31)
[2022-09-10] MEDS: UBIDECARENONE 200 MG PO SCH (22:23)
[2022-09-11] MEDS: Acetaminophen 325 MG Tab PO PRN ×4 (04:05→21:35)
[2022-09-11 07:10] LABS: ANION GAP 9.3 mmol/L (5-15)
[2022-09-11] MEDS: Insulin Glarg,Human.Rec.Analog 100 Unit/ML SUBCUT SCH (09:22)
[2022-09-11] MEDS: Omeprazole 20 MG Cap.CR PO SCH (09:23)
[2022-09-11] MEDS: Losartan 25 MG Tab PO SCH (09:23)
[2022-09-11] MEDS: Spironolactone 25 MG Tab PO SCH (09:23)
[2022-09-11] MEDS: Cholecalciferol (Vitamin D3) 25 MCG Tab PO SCH (09:23)
[2022-09-11] MEDS: Magnesium Oxide 400 MG Tab PO SCH ×3 (09:23→20:16)
[2022-09-11] MEDS: Potassium Chloride 20 MEQ Tab.ER PO SCH (09:23)
[2022-09-11] MEDS: Allopurinol 100 MG Tab PO SCH (09:24)
[2022-09-11] MEDS: Aspirin 81 MG Tab.EC PO SCH (09:24)
[2022-09-11] MEDS: Carvedilol 6.25 MG Tab PO SCH ×2 (09:24→17:23)
[2022-09-11] MEDS: Cyanocobalamin (Vitamin B12) 1,000 MCG Tab PO SCH (09:24)
[2022-09-11] MEDS: glipiZIDE 5 MG Tab.ER PO SCH (09:24)
[2022-09-11] MEDS: Furosemide 20 MG/2 ML VIAL IV SCH (09:25)
[2022-09-11] MEDS: Triamcinolone Acetonide 0.1% Crm 15 GM Tube TOP SCH ×2 (09:28→20:24)
[2022-09-11] MEDS ORDERED: Furosemide 20 MG/2 ML VIAL IV ONE (09:43)
[2022-09-11] MEDS: Furosemide 100 MG/10 ML SDV IV SCH (17:22)
[2022-09-11] MEDS: Iron Polysaccharides Complex 150 MG Cap PO SCH (18:45)
[2022-09-11] MEDS: Gabapentin 100 MG Cap PO SCH (20:16)
[2022-09-11] MEDS: ALPRAZolam 0.25 MG Tab PO PRN (20:16)
[2022-09-11] MEDS: traZODone 50 MG Tab PO SCH (20:16)
[2022-09-11] MEDS: UBIDECARENONE 200 MG PO SCH (20:24)
[2022-09-12] MEDS: Acetaminophen 325 MG Tab PO PRN ×4 (02:53→21:19)
[2022-09-12] MEDS: Ondansetron 4 MG Tab.DIS PO PRN ×2 (04:22→20:49)
[2022-09-12 07:23] LABS: ANION GAP 11.2 mmol/L (5-15)
[2022-09-12] MEDS: Insulin Glarg,Human.Rec.Analog 100 Unit/ML SUBCUT SCH (08:55)
[2022-09-12] MEDS: Spironolactone 25 MG Tab PO SCH (08:56)
[2022-09-12] MEDS: Carvedilol 12.5 MG Tab PO SCH ×2 (08:56→17:30)
[2022-09-12] MEDS: Magnesium Oxide 400 MG Tab PO SCH ×2 (08:57→20:40)
[2022-09-12] MEDS: glipiZIDE 5 MG Tab.ER PO SCH (08:58)
[2022-09-12] MEDS: Omeprazole 20 MG Cap.CR PO SCH (08:58)
[2022-09-12] MEDS: Losartan 25 MG Tab PO SCH (08:58)
[2022-09-12] MEDS: Potassium Chloride 20 MEQ Tab.ER PO SCH (08:58)
[2022-09-12] MEDS: Cyanocobalamin (Vitamin B12) 1,000 MCG Tab PO SCH (08:58)
[2022-09-12] MEDS: Aspirin 81 MG Tab.EC PO SCH (08:58)
[2022-09-12] MEDS: Cholecalciferol (Vitamin D3) 25 MCG Tab PO SCH (08:58)
[2022-09-12] MEDS: Allopurinol 100 MG Tab PO SCH (08:58)
[2022-09-12] MEDS: Camphor/Menthol 0.5-0.5% Lotion 222 ML Bottle TOP SCH ×3 (09:01→20:54)
[2022-09-12] MEDS: Furosemide 100 MG/10 ML SDV IV SCH ×2 (09:02→17:27)
[2022-09-12] MEDS: Triamcinolone Acetonide 0.1% Crm 15 GM Tube TOP SCH ×2 (09:02→21:00)
[2022-09-12] MEDS ORDERED: Mineral Oil/Petrolatum/Phenylephrine/Shark Liver Oil Oint 57 GM Tube RECTAL PRN (14:33)
[2022-09-12] MEDS: traZODone 50 MG Tab PO SCH (20:40)
[2022-09-12] MEDS: Gabapentin 100 MG Cap PO SCH (20:41)
[2022-09-12] MEDS: ALPRAZolam 0.25 MG Tab PO PRN (20:42)
[2022-09-12] MEDS ORDERED: Mirtazapine 15 MG Tab PO SCH (21:00)
[2022-09-12] MEDS: UBIDECARENONE 200 MG PO SCH (21:01)
[2022-09-13 07:08] LABS: ANION GAP 7.9 mmol/L (5-15)
[2022-09-13] MEDS ORDERED: Furosemide 40 MG Tab PO SCH (09:00)
[2022-09-13] MEDS: Insulin Glarg,Human.Rec.Analog 100 Unit/ML SUBCUT SCH (09:21)
[2022-09-13] MEDS: Allopurinol 100 MG Tab PO SCH (09:26)
[2022-09-13] MEDS: Aspirin 81 MG Tab.EC PO SCH (09:27)
[2022-09-13] MEDS: Cholecalciferol (Vitamin D3) 25 MCG Tab PO SCH (09:27)
[2022-09-13] MEDS: Magnesium Oxide 400 MG Tab PO SCH (09:28)
[2022-09-13] MEDS: Potassium Chloride 20 MEQ Tab.ER PO SCH (09:28)
[2022-09-13] MEDS: Omeprazole 20 MG Cap.CR PO SCH (09:29)
[2022-09-13] MEDS: Cyanocobalamin (Vitamin B12) 1,000 MCG Tab PO SCH (09:29)
[2022-09-13] MEDS: Spironolactone 25 MG Tab PO SCH (09:29)
[2022-09-13] MEDS: glipiZIDE 5 MG Tab.ER PO SCH (09:30)
[2022-09-13] MEDS: Losartan 25 MG Tab PO SCH (09:48)
[2022-09-13] MEDS: Carvedilol 12.5 MG Tab PO SCH (09:48)
[2022-09-13] MEDS: Camphor/Menthol 0.5-0.5% Lotion 222 ML Bottle TOP SCH (09:49)
[2022-09-13] MEDS: Triamcinolone Acetonide 0.1% Crm 15 GM Tube TOP SCH (09:49)
[2022-09-13] MEDS: Ondansetron 4 MG Tab.DIS PO PRN (11:23)
[2022-09-13 11:28] VITALS: BP 134/79; PULSE 94
[2022-09-13] MEDS: Acetaminophen 325 MG Tab PO PRN (12:13)
== END 2022-09-13 13:08 | disposition swing bed (61) | DRG 291 ==
LOC: VM.MS 11:37
PROVIDERS: ADMIT Nurse Practitioner Family; ATTEND Nurse Practitioner Family
DX: I13.0 Hypertensive heart and chronic kidney disease with heart failure and stage 1 through stage 4 chronic kidney disease, or unspecified chronic kidney disease (principal); I50.23 Acute on chronic systolic (congestive) heart failure; K21.9 Gastro-esophageal reflux disease without esophagitis; Z66 Do not resuscitate; M79.7 Fibromyalgia; M10.9 Gout, unspecified; E11.22 Type 2 diabetes mellitus with diabetic chronic kidney disease; D63.1 Anemia in chronic kidney disease; E83.42 Hypomagnesemia; L57.0 Actinic keratosis; H52.10 Myopia, unspecified eye; H52.4 Presbyopia; Z96.1 Presence of intraocular lens; E78.00 Pure hypercholesterolemia, unspecified; E11.51 Type 2 diabetes mellitus with diabetic peripheral angiopathy without gangrene; I25.10 Atherosclerotic heart disease of native coronary artery without angina pectoris; N18.32 Chronic kidney disease, stage 3b; G47.00 Insomnia, unspecified; G31.84 Mild cognitive impairment of uncertain or unknown etiology; R10.9 Unspecified abdominal pain; L30.8 Other specified dermatitis; R45.1 Restlessness and agitation; Z86.16 Personal history of COVID-19; Z91.013 Allergy to seafood; Z88.1 Allergy status to other antibiotic agents; Z88.0 Allergy status to penicillin; Z88.7 Allergy status to serum and vaccine; Z89.512 Acquired absence of left leg below knee; Z89.511 Acquired absence of right leg below knee; Z91.81 History of falling; Z88.8 Allergy status to other drugs, medicaments and biological substances; Z79.82 Long term (current) use of aspirin; Z79.4 Long term (current) use of insulin; Z79.899 Other long term (current) drug therapy; Z98.49 Cataract extraction status, unspecified eye; Z90.89 Acquired absence of other organs; Z90.710 Acquired absence of both cervix and uterus
CPT/HCPCS: 36415; 71045; 71046; 74176; 80048; 80053; 81001; 82947; 83690; 83735; 83880; 84484; 85018; 85025; 85027; 86140; 93005; 97110-GP; 97161-GP; 97165-GO; 97530-GP; 97535-GO; A9270-GY; J1815-GY; J1940; J3490

== ENCOUNTER 2022-09-13 09:37 | Inpatient (IN) | payer MEDICARE, OTHER ==
[2022-09-13] MEDS ORDERED: Nystatin Crm 30 GM Tube TOP PRN (11:44)
[2022-09-13] MEDS ORDERED: Ondansetron 4 MG Tab.DIS PO PRN (11:44)
[2022-09-13] MEDS ORDERED: Hypromellose 0.3% Ophth Soln 15 ML Bottle EYEBOTH PRN (11:44)
[2022-09-13] MEDS ORDERED: Nitroglycerin 0.4 MG Tab.SL SL PRN (11:44)
[2022-09-13] MEDS ORDERED: 50% Dextrose in Water 50 ML Syringe IVPUSH PRN (11:44)
[2022-09-13] MEDS ORDERED: Glucagon,Human Recombinant 1 MG Vial IM PRN (11:44)
[2022-09-13] MEDS ORDERED: Polyethylene Glycol 3350 Powder 17 GM Packet PO PRN (11:44)
[2022-09-13] MEDS ORDERED: Mineral Oil/Petrolatum/Phenylephrine/Shark Liver Oil Oint 57 GM Tube RECTAL PRN (11:44)
[2022-09-13] MEDS ORDERED: Sodium Chloride 0.9% 10 ML Syringe FLUSH PRN ×2 (11:44)
[2022-09-13] MEDS: Furosemide 40 MG Tab PO SCH (17:45)
[2022-09-13] MEDS: Carvedilol 12.5 MG Tab PO SCH (17:46)
[2022-09-13] MEDS: Losartan 25 MG Tab PO SCH (18:24)
[2022-09-13] MEDS: Iron Polysaccharides Complex 150 MG Cap PO SCH (18:24)
[2022-09-13] MEDS: Acetaminophen 325 MG Tab PO PRN (21:07)
[2022-09-13] MEDS: Camphor/Menthol 0.5-0.5% Lotion 222 ML Bottle TOP SCH (21:09)
[2022-09-13] MEDS: Triamcinolone Acetonide 0.1% Crm 15 GM Tube TOP SCH (21:12)
[2022-09-13] MEDS: ALPRAZolam 0.25 MG Tab PO PRN (21:13)
[2022-09-13] MEDS: traZODone 50 MG Tab PO SCH (21:14)
[2022-09-13] MEDS: Gabapentin 100 MG Cap PO SCH (21:14)
[2022-09-13] MEDS: Mirtazapine 15 MG Tab PO SCH (21:14)
[2022-09-13] MEDS: Magnesium Oxide 400 MG Tab PO SCH (21:14)
[2022-09-13] MEDS: UBIDECARENONE 200 MG PO SCH (21:15)
[2022-09-14] MEDS: Omeprazole 20 MG Cap.CR PO SCH (06:54)
[2022-09-14 08:38] LABS: CHLORIDE,CL 101 mmol/L (98-107); SODIUM,NA 141 mmol/L (136-145)
[2022-09-14 08:39] LABS: ESTIMATED GFR 36 mL/min (>=60)
[2022-09-14] MEDS: Triamcinolone Acetonide 0.1% Crm 15 GM Tube TOP SCH ×2 (09:00→20:06)
[2022-09-14] MEDS ORDERED: Losartan 25 MG Tab PO SCH (09:00)
[2022-09-14] MEDS: Insulin Glarg,Human.Rec.Analog 100 Unit/ML SUBCUT SCH (09:22)
[2022-09-14] MEDS: Spironolactone 25 MG Tab PO SCH (09:27)
[2022-09-14] MEDS: Carvedilol 12.5 MG Tab PO SCH ×2 (09:28→17:17)
[2022-09-14] MEDS: Furosemide 40 MG Tab PO SCH ×2 (09:28→17:17)
[2022-09-14] MEDS: Cholecalciferol (Vitamin D3) 25 MCG Tab PO SCH (09:28)
[2022-09-14] MEDS: Potassium Chloride 20 MEQ Tab.ER PO SCH (09:29)
[2022-09-14] MEDS: Magnesium Oxide 400 MG Tab PO SCH ×2 (09:29→20:00)
[2022-09-14] MEDS: glipiZIDE 5 MG Tab.ER PO SCH (09:30)
[2022-09-14] MEDS: Losartan 25 MG Tab PO SCH (09:30)
[2022-09-14] MEDS: Aspirin 81 MG Tab.EC PO SCH (09:31)
[2022-09-14] MEDS: Allopurinol 100 MG Tab PO SCH (09:31)
[2022-09-14] MEDS: Cyanocobalamin (Vitamin B12) 1,000 MCG Tab PO SCH (09:31)
[2022-09-14] MEDS: Camphor/Menthol 0.5-0.5% Lotion 222 ML Bottle TOP SCH ×2 (09:32→20:07)
[2022-09-14] MEDS: Acetaminophen 325 MG Tab PO PRN ×3 (16:09→23:52)
[2022-09-14] MEDS ORDERED: Losartan 25 MG Tab PO ONE (19:10)
[2022-09-14] MEDS: ALPRAZolam 0.25 MG Tab PO PRN (20:00)
[2022-09-14] MEDS: traZODone 50 MG Tab PO SCH (20:00)
[2022-09-14] MEDS: Gabapentin 100 MG Cap PO SCH (20:00)
[2022-09-14] MEDS: Mirtazapine 15 MG Tab PO SCH (20:00)
[2022-09-14] MEDS: UBIDECARENONE 200 MG PO SCH (20:08)
[2022-09-15] MEDS: Omeprazole 20 MG Cap.CR PO SCH (06:19)
[2022-09-15] MEDS: Acetaminophen 325 MG Tab PO PRN ×3 (06:19→20:21)
[2022-09-15] MEDS: Potassium Chloride 20 MEQ Tab.ER PO SCH (11:01)
[2022-09-15] MEDS: Furosemide 40 MG Tab PO SCH ×2 (11:01→17:29)
[2022-09-15] MEDS: Cholecalciferol (Vitamin D3) 25 MCG Tab PO SCH (11:02)
[2022-09-15] MEDS: Spironolactone 25 MG Tab PO SCH (11:02)
[2022-09-15] MEDS: glipiZIDE 5 MG Tab.ER PO SCH (11:03)
[2022-09-15] MEDS: Allopurinol 100 MG Tab PO SCH (11:04)
[2022-09-15] MEDS: Losartan 25 MG Tab PO SCH (11:04)
[2022-09-15] MEDS: Cyanocobalamin (Vitamin B12) 1,000 MCG Tab PO SCH (11:05)
[2022-09-15] MEDS: Aspirin 81 MG Tab.EC PO SCH (11:05)
[2022-09-15] MEDS: Magnesium Oxide 400 MG Tab PO SCH ×2 (11:05→20:14)
[2022-09-15] MEDS: Carvedilol 12.5 MG Tab PO SCH ×2 (11:05→17:31)
[2022-09-15] MEDS: Insulin Glarg,Human.Rec.Analog 100 Unit/ML SUBCUT SCH ×2 (11:06→11:15)
[2022-09-15] MEDS: Camphor/Menthol 0.5-0.5% Lotion 222 ML Bottle TOP SCH ×2 (11:06→20:19)
[2022-09-15] MEDS: Triamcinolone Acetonide 0.1% Crm 15 GM Tube TOP SCH ×2 (11:09→20:17)
[2022-09-15] MEDS: Iron Polysaccharides Complex 150 MG Cap PO SCH (18:30)
[2022-09-15] MEDS: traZODone 50 MG Tab PO SCH (20:14)
[2022-09-15] MEDS: Gabapentin 100 MG Cap PO SCH (20:14)
[2022-09-15] MEDS: Mirtazapine 15 MG Tab PO SCH (20:14)
[2022-09-15] MEDS: ALPRAZolam 0.25 MG Tab PO PRN (20:14)
[2022-09-15] MEDS: UBIDECARENONE 200 MG PO SCH (20:16)
[2022-09-16] MEDS: Omeprazole 20 MG Cap.CR PO SCH (06:48)
[2022-09-16] MEDS: Insulin Glarg,Human.Rec.Analog 100 Unit/ML SUBCUT SCH (08:01)
[2022-09-16] MEDS: Triamcinolone Acetonide 0.1% Crm 15 GM Tube TOP SCH ×2 (08:02→20:33)
[2022-09-16] MEDS: Spironolactone 25 MG Tab PO SCH (08:04)
[2022-09-16] MEDS: Magnesium Oxide 400 MG Tab PO SCH ×2 (08:04→20:18)
[2022-09-16] MEDS: Cholecalciferol (Vitamin D3) 25 MCG Tab PO SCH (08:04)
[2022-09-16] MEDS: Carvedilol 12.5 MG Tab PO SCH ×2 (08:04→17:24)
[2022-09-16] MEDS: Cyanocobalamin (Vitamin B12) 1,000 MCG Tab PO SCH (08:05)
[2022-09-16] MEDS: glipiZIDE 5 MG Tab.ER PO SCH (08:05)
[2022-09-16] MEDS: Losartan 25 MG Tab PO SCH (08:05)
[2022-09-16] MEDS: Furosemide 40 MG Tab PO SCH ×4 (08:05→14:13)
[2022-09-16] MEDS: Potassium Chloride 20 MEQ Tab.ER PO SCH (08:05)
[2022-09-16] MEDS: Aspirin 81 MG Tab.EC PO SCH (08:05)
[2022-09-16] MEDS: Camphor/Menthol 0.5-0.5% Lotion 222 ML Bottle TOP SCH ×2 (08:06→20:31)
[2022-09-16] MEDS: Allopurinol 100 MG Tab PO SCH (08:06)
[2022-09-16] MEDS ORDERED: Lidocaine 4% 1 each Patch TOP PRN (10:12)
[2022-09-16] MEDS: Acetaminophen 325 MG Tab PO PRN ×3 (10:29→20:19)
[2022-09-16] MEDS: Lidocaine 4% 1 each Patch TOP SCH (10:29)
[2022-09-16] MEDS: Gabapentin 100 MG Cap PO SCH (20:18)
[2022-09-16] MEDS: traZODone 50 MG Tab PO SCH (20:19)
[2022-09-16] MEDS: Mirtazapine 15 MG Tab PO SCH (20:19)
[2022-09-16] MEDS: ALPRAZolam 0.25 MG Tab PO PRN (21:44)
[2022-09-17] MEDS: UBIDECARENONE 200 MG PO SCH ×2 (00:09→20:56)
[2022-09-17] MEDS: Acetaminophen 325 MG Tab PO PRN ×3 (02:29→20:52)
[2022-09-17] MEDS: Omeprazole 20 MG Cap.CR PO SCH (06:43)
[2022-09-17 07:25] LABS: ANION GAP 13.2 mmol/L (5-15)
[2022-09-17] MEDS: Insulin Glarg,Human.Rec.Analog 100 Unit/ML SUBCUT SCH (08:16)
[2022-09-17] MEDS: Magnesium Oxide 400 MG Tab PO SCH ×2 (08:20→20:50)
[2022-09-17] MEDS: Aspirin 81 MG Tab.EC PO SCH (08:20)
[2022-09-17] MEDS: Cyanocobalamin (Vitamin B12) 1,000 MCG Tab PO SCH (08:20)
[2022-09-17] MEDS: Potassium Chloride 20 MEQ Tab.ER PO SCH (08:20)
[2022-09-17] MEDS: glipiZIDE 5 MG Tab.ER PO SCH (08:20)
[2022-09-17] MEDS: Allopurinol 100 MG Tab PO SCH (08:21)
[2022-09-17] MEDS: Furosemide 40 MG Tab PO SCH (08:22)
[2022-09-17] MEDS: Spironolactone 25 MG Tab PO SCH (08:22)
[2022-09-17] MEDS: Carvedilol 12.5 MG Tab PO SCH ×2 (08:22→18:39)
[2022-09-17] MEDS: Losartan 25 MG Tab PO SCH (08:22)
[2022-09-17] MEDS: Cholecalciferol (Vitamin D3) 25 MCG Tab PO SCH (08:28)
[2022-09-17] MEDS: Lidocaine 4% 1 each Patch TOP SCH (08:29)
[2022-09-17] MEDS: Camphor/Menthol 0.5-0.5% Lotion 222 ML Bottle TOP SCH ×2 (08:30→20:54)
[2022-09-17] MEDS: Triamcinolone Acetonide 0.1% Crm 15 GM Tube TOP SCH ×2 (08:31→20:55)
[2022-09-17] MEDS: Furosemide 20 MG Tab PO SCH (13:27)
[2022-09-17] MEDS: Iron Polysaccharides Complex 150 MG Cap PO SCH (18:39)
[2022-09-17] MEDS: Mirtazapine 15 MG Tab PO SCH (20:50)
[2022-09-17] MEDS: traZODone 50 MG Tab PO SCH (20:51)
[2022-09-17] MEDS: Gabapentin 100 MG Cap PO SCH (20:51)
[2022-09-17] MEDS: ALPRAZolam 0.25 MG Tab PO PRN (20:52)
[2022-09-18] MEDS: Acetaminophen 325 MG Tab PO PRN ×4 (00:58→20:12)
[2022-09-18] MEDS: Omeprazole 20 MG Cap.CR PO SCH (06:44)
[2022-09-18] MEDS: Insulin Glarg,Human.Rec.Analog 100 Unit/ML SUBCUT SCH (08:19)
[2022-09-18] MEDS: Triamcinolone Acetonide 0.1% Crm 15 GM Tube TOP SCH ×2 (08:20→20:01)
[2022-09-18] MEDS: Camphor/Menthol 0.5-0.5% Lotion 222 ML Bottle TOP SCH ×2 (08:20→20:03)
[2022-09-18] MEDS: Lidocaine 4% 1 each Patch TOP SCH (08:21)
[2022-09-18] MEDS: Magnesium Oxide 400 MG Tab PO SCH ×2 (08:26→20:02)
[2022-09-18] MEDS: Allopurinol 100 MG Tab PO SCH (08:26)
[2022-09-18] MEDS: Potassium Chloride 20 MEQ Tab.ER PO SCH (08:26)
[2022-09-18] MEDS: Cholecalciferol (Vitamin D3) 25 MCG Tab PO SCH (08:26)
[2022-09-18] MEDS: Cyanocobalamin (Vitamin B12) 1,000 MCG Tab PO SCH (08:26)
[2022-09-18] MEDS: Aspirin 81 MG Tab.EC PO SCH (08:26)
[2022-09-18] MEDS: Spironolactone 25 MG Tab PO SCH (08:27)
[2022-09-18] MEDS: glipiZIDE 5 MG Tab.ER PO SCH (08:27)
[2022-09-18] MEDS: Furosemide 40 MG Tab PO SCH (08:27)
[2022-09-18] MEDS: Losartan 25 MG Tab PO SCH (08:27)
[2022-09-18] MEDS: Carvedilol 12.5 MG Tab PO SCH ×2 (08:28→17:16)
[2022-09-18] MEDS: Furosemide 20 MG Tab PO SCH (13:27)
[2022-09-18] MEDS: Sulfamethoxazole/Trimethoprim 400-80 MG Tab PO SCH ×2 (14:35→20:02)
[2022-09-18] MEDS: Mupirocin Oint 22 GM Tube TOP SCH (20:01)
[2022-09-18] MEDS: Mirtazapine 15 MG Tab PO SCH (20:02)
[2022-09-18] MEDS: traZODone 50 MG Tab PO SCH (20:02)
[2022-09-18] MEDS: Gabapentin 100 MG Cap PO SCH (20:03)
[2022-09-18] MEDS: UBIDECARENONE 200 MG PO SCH (20:05)
[2022-09-18] MEDS: ALPRAZolam 0.25 MG Tab PO PRN (20:12)
[2022-09-19] MEDS: Acetaminophen 325 MG Tab PO PRN (01:44)
[2022-09-19 05:52] VITALS: BP 154/72; PULSE 86
[2022-09-19] MEDS: Omeprazole 20 MG Cap.CR PO SCH (06:21)
[2022-09-19] MEDS: Lidocaine 4% 1 each Patch TOP SCH (08:09)
[2022-09-19] MEDS: Triamcinolone Acetonide 0.1% Crm 15 GM Tube TOP SCH (08:10)
[2022-09-19] MEDS: Insulin Glarg,Human.Rec.Analog 100 Unit/ML SUBCUT SCH (08:10)
[2022-09-19] MEDS: Camphor/Menthol 0.5-0.5% Lotion 222 ML Bottle TOP SCH (08:10)
[2022-09-19] MEDS: glipiZIDE 5 MG Tab.ER PO SCH (08:12)
[2022-09-19] MEDS: Cyanocobalamin (Vitamin B12) 1,000 MCG Tab PO SCH (08:12)
[2022-09-19] MEDS: Aspirin 81 MG Tab.EC PO SCH (08:12)
[2022-09-19] MEDS: Spironolactone 25 MG Tab PO SCH (08:13)
[2022-09-19] MEDS: Potassium Chloride 20 MEQ Tab.ER PO SCH (08:13)
[2022-09-19] MEDS: Allopurinol 100 MG Tab PO SCH (08:13)
[2022-09-19] MEDS: Sulfamethoxazole/Trimethoprim 400-80 MG Tab PO SCH (08:13)
[2022-09-19] MEDS: Magnesium Oxide 400 MG Tab PO SCH (08:13)
[2022-09-19] MEDS: Cholecalciferol (Vitamin D3) 25 MCG Tab PO SCH (08:13)
[2022-09-19] MEDS: Furosemide 40 MG Tab PO SCH (08:13)
[2022-09-19] MEDS: Losartan 25 MG Tab PO SCH (08:14)
[2022-09-19] MEDS: Carvedilol 12.5 MG Tab PO SCH (08:14)
[2022-09-19] MEDS: Mupirocin Oint 22 GM Tube TOP SCH (09:00)
== END 2022-09-19 10:30 | disposition home or self-care (01) | DRG 948 ==
LOC: VM.MS 13:08
PROVIDERS: ADMIT Family Medicine; ATTEND Family Medicine
DX: R53.81 Other malaise (principal); I13.0 Hypertensive heart and chronic kidney disease with heart failure and stage 1 through stage 4 chronic kidney disease, or unspecified chronic kidney disease; I50.22 Chronic systolic (congestive) heart failure; E11.22 Type 2 diabetes mellitus with diabetic chronic kidney disease; F41.9 Anxiety disorder, unspecified; L03.011 Cellulitis of right finger; D63.1 Anemia in chronic kidney disease; G47.00 Insomnia, unspecified; Z66 Do not resuscitate; E83.42 Hypomagnesemia; E11.65 Type 2 diabetes mellitus with hyperglycemia; E78.00 Pure hypercholesterolemia, unspecified; K21.9 Gastro-esophageal reflux disease without esophagitis; I25.10 Atherosclerotic heart disease of native coronary artery without angina pectoris; M10.9 Gout, unspecified; M79.7 Fibromyalgia; M54.50 Low back pain, unspecified; G89.29 Other chronic pain; N18.32 Chronic kidney disease, stage 3b; Z88.5 Allergy status to narcotic agent; Z86.16 Personal history of COVID-19; I25.2 Old myocardial infarction; Z79.82 Long term (current) use of aspirin; Z88.7 Allergy status to serum and vaccine; Z89.612 Acquired absence of left leg above knee; Z89.611 Acquired absence of right leg above knee; Z79.899 Other long term (current) drug therapy; Z90.49 Acquired absence of other specified parts of digestive tract; Z91.013 Allergy to seafood; Z88.1 Allergy status to other antibiotic agents
CPT/HCPCS: 36415; 80048; 81001; 82947; 83735; 83880; 85025; 97110-GP; 97116-GP; 97530-GO; 97530-GP; 97535-GO; A9270-GY; J1815-GY

== ENCOUNTER 2022-09-26 14:38 | Emergency (ER) | payer MEDICARE, OTHER ==
[2022-09-26 15:15] LABS: ANION GAP 16.2 mmol/L (5-15)
[2022-09-26] MEDS: Sodium Chloride 0.9% 1,000 ML IV ONE (15:38)
[2022-09-26] MEDS ORDERED: Glucagon,Human Recombinant 1 MG Vial IM PRN ×2 (15:45→16:02)
[2022-09-26] MEDS ORDERED: Insulin Regular, Human 100 Units/ML 3 ML Vial SUBCUT STA (15:45)
[2022-09-26] MEDS ORDERED: 50% Dextrose in Water 50 ML Syringe IVPUSH PRN ×2 (15:45→16:02)
[2022-09-26] MEDS: Albuterol 0.083% 2.5 MG/3 ML Neb Soln NEB ONE (15:58)
[2022-09-26] MEDS: Calcium Gluc in NaCl, ISO-OSM 1,000 MG in Premix Bag 1 BAG IV ONE ×2 (15:59)
[2022-09-26] MEDS: 50% Dextrose in Water 50 ML Syringe IV PRN (16:07)
[2022-09-26] MEDS: Insulin Regular, Human 100 Units/ML 3 ML Vial IVPUSH ONE (16:09)
[2022-09-26] MEDS: Dextrose 10% in Water 500 ML IV SCH (16:14)
[2022-09-26 17:59] VITALS: BP 162/90; PULSE 70
== END 2022-09-26 17:10 | disposition short-term general hospital (02) ==
LOC: VM.ED 14:38
DX: N17.9 Acute kidney failure, unspecified (principal); E87.5 Hyperkalemia; I25.10 Atherosclerotic heart disease of native coronary artery without angina pectoris; I11.0 Hypertensive heart disease with heart failure; I50.9 Heart failure, unspecified; E78.00 Pure hypercholesterolemia, unspecified; I25.2 Old myocardial infarction; E11.9 Type 2 diabetes mellitus without complications; K21.9 Gastro-esophageal reflux disease without esophagitis; Z91.013 Allergy to seafood; Z88.1 Allergy status to other antibiotic agents; Z88.0 Allergy status to penicillin; Z88.7 Allergy status to serum and vaccine; Z88.8 Allergy status to other drugs, medicaments and biological substances; Z79.899 Other long term (current) drug therapy
CPT/HCPCS: 36415; 80053; 83735; 84484; 85025; 93005; 93010; 96361; 96374; 96375; 99284; 99285-25; J1815-GY; J7030; J7613-GY

== ENCOUNTER 2023-01-03 11:54 | Emergency (ER) | payer MEDICARE, OTHER ==
[2023-01-03 12:10] VITALS: BP 175/88; PULSE 89
[2023-01-03] MEDS ORDERED: fentaNYL 50 MCG/ML SDV IVPUSH ONE (12:48)
[2023-01-03 12:51] LABS: CHLORIDE,CL 101 mmol/L (98-107); SODIUM,NA 139 mmol/L (136-145)
[2023-01-03 12:52] LABS: ANION GAP 13.8 mmol/L (5-15); ESTIMATED GFR 40 mL/min (>=60)
[2023-01-03] MEDS ORDERED: Iopamidol 612 MG/ML 100 ML Bottle IVPUSH ONE (13:34)
[2023-01-03] MEDS ORDERED: Acetaminophen 325 MG Tab PO ONE (14:32)
== END 2023-01-03 15:05 | disposition home or self-care (01) ==
LOC: VM.ED 11:54
DX: R18.8 Other ascites (principal); I25.10 Atherosclerotic heart disease of native coronary artery without angina pectoris; E78.00 Pure hypercholesterolemia, unspecified; I10 Essential (primary) hypertension; K21.9 Gastro-esophageal reflux disease without esophagitis; I25.2 Old myocardial infarction; E11.9 Type 2 diabetes mellitus without complications; Z91.013 Allergy to seafood; Z88.1 Allergy status to other antibiotic agents; Z88.0 Allergy status to penicillin; Z88.5 Allergy status to narcotic agent; Z88.8 Allergy status to other drugs, medicaments and biological substances; Z79.82 Long term (current) use of aspirin; Z79.899 Other long term (current) drug therapy; Z79.4 Long term (current) use of insulin
CPT/HCPCS: 36415; 74177; 80053; 81001; 82150; 83690; 83735; 83880; 85025; 86140; 96374; 99284; 99285-25; A9270-GY; J3010; Q9967

== ENCOUNTER 2023-01-07 13:17 | Emergency (ER) | payer MEDICARE, OTHER ==
[2023-01-07] MEDS ORDERED: HYDROmorphone 0.5 MG/0.5 ML Syringe IVPUSH ONE (13:59)
[2023-01-07 14:22] LABS: CHLORIDE,CL 102 mmol/L (98-107); SODIUM,NA 141 mmol/L (136-145)
[2023-01-07 14:23] LABS: ANION GAP 14.5 mmol/L (5-15); ESTIMATED GFR 31 mL/min (>=60)
[2023-01-07] MEDS ORDERED: Furosemide 40 MG/4 ML VIAL IV ONE (14:28)
[2023-01-07 15:54] VITALS: BP 156/71; PULSE 82
== END 2023-01-07 16:10 | disposition home or self-care (01) ==
LOC: VM.ED 13:17
DX: R18.8 Other ascites (principal); I11.0 Hypertensive heart disease with heart failure; I50.32 Chronic diastolic (congestive) heart failure; E78.00 Pure hypercholesterolemia, unspecified; E11.9 Type 2 diabetes mellitus without complications; Z88.1 Allergy status to other antibiotic agents; Z91.013 Allergy to seafood; Z88.0 Allergy status to penicillin; Z88.5 Allergy status to narcotic agent; Z88.7 Allergy status to serum and vaccine; Z79.82 Long term (current) use of aspirin; Z79.899 Other long term (current) drug therapy; Z79.4 Long term (current) use of insulin; Z86.16 Personal history of COVID-19
CPT/HCPCS: 36415; 74019; 80053; 82140; 82150; 83690; 83735; 84100; 85025; 85610; 85730; 86140; 96374; 96375; 99284-25; J1170; J1940

== ENCOUNTER 2024-09-01 10:54 | Emergency (ER) | payer MEDICARE, OTHER ==
[2024-09-01 11:27] VITALS: BP 179/93; PULSE 87
== END 2024-09-01 12:10 | disposition home or self-care (01) ==
LOC: VM.ED 10:54
DX: M54.6 Pain in thoracic spine (principal); K64.4 Residual hemorrhoidal skin tags; I11.0 Hypertensive heart disease with heart failure; I50.9 Heart failure, unspecified; I25.10 Atherosclerotic heart disease of native coronary artery without angina pectoris; E78.00 Pure hypercholesterolemia, unspecified; E11.9 Type 2 diabetes mellitus without complications; Z88.0 Allergy status to penicillin; Z88.5 Allergy status to narcotic agent; Z88.8 Allergy status to other drugs, medicaments and biological substances; Z91.013 Allergy to seafood; Z79.4 Long term (current) use of insulin; Z79.82 Long term (current) use of aspirin; Z79.899 Other long term (current) drug therapy; Z86.16 Personal history of COVID-19; Z90.710 Acquired absence of both cervix and uterus
CPT/HCPCS: 99283

== ENCOUNTER 2024-09-14 19:01 | Emergency (ER) | payer MEDICARE, OTHER ==
[2024-09-14 19:36] LABS: BASOPHILS PERCENT AUTO 0.4 % (0.2-1.2); EOSINOPHILS ABSOLUTE AUTO 0.2 x10^3/uL (0.0-0.5); HEMATOCRIT 40.5 % (33.0-47.0); HEMOGLOBIN 12.7 g/dL (12.0-16.0); IMMATURE GRAN ABSOLUTE AUTO 0.01 x10^3/uL (0.00-0.07); LYMPHOCYTES ABSOLUTE AUTO 0.6 x10^3/uL (1.0-4.8); LYMPHOCYTES PERCENT AUTO 9.8 % (25.0-50.0); MEAN CORPUSCULAR HEMOGLOBIN 29.2 pg (26.0-32.0); MEAN CORPUSCULAR HGB CONC 31.4 g/dL (32.0-36.0); MEAN CORPUSCULAR VOLUME 93.1 fL (78.0-93.0); MONOCYTES ABSOLUTE AUTO 0.5 x10^3/uL (0.0-0.8); MONOCYTES PERCENT AUTO 9.3 % (2.0-11.0); NEUTROPHILS ABSOLUTE AUTO 4.3 x10^3/uL (1.8-7.7); NEUTROPHILS PERCENT AUTO 76.3 % (50.0-80.0); PLATELET COUNT,PLT 179 x10^3/uL (130-400); RED BLOOD CELL COUNT 4.35 x10^6/uL (4.00-5.50); WHITE BLOOD CELL COUNT,WBC 5.7 x10^3/uL (4.0-10.0)
[2024-09-14 19:57] LABS: A/G RATIO 0.63; ALANINE AMINOTRANSFERASE,ALT 16 U/L (14-59); ALBUMIN 2.7 g/dL (3.4-5.0); ALKALINE PHOSPHATASE 124 U/L (46-116); ASPARTATE AMNIOTRANSFERASE,AST 18 U/L (15-37); BILIRUBIN TOTAL 0.8 mg/dL (0.2-1.0); BLOOD UREA NITROGEN,BUN 36 mg/dL (7-18); CALCIUM 8.4 mg/dL (8.5-10.1); CARBON DIOXIDE,CO2 25 mmol/L (21-32); CHLORIDE,CL 106 mmol/L (98-107); CREATININE 1.9 mg/dL (0.55-1.02); GLUCOSE RANDOM 284 mg/dL (70-99); POTASSIUM,K 4.7 mmol/L (3.5-5.1); SODIUM,NA 139 mmol/L (136-145)
[2024-09-14 20:00] LABS: ANION GAP 12.7 mmol/L (5-15); ESTIMATED GFR 25 mL/min (>=60)
[2024-09-14] MEDS: methylPREDNISolone Sodium Succinate 40 MG/1 ML SDV IVPUSH ONE (20:19)
[2024-09-14 23:22] VITALS: BP 155/80; PULSE 84
== END 2024-09-14 21:21 | disposition home or self-care (01) ==
LOC: VM.ED 19:01
DX: R09.1 Pleurisy (principal); I11.0 Hypertensive heart disease with heart failure; I50.9 Heart failure, unspecified; K21.9 Gastro-esophageal reflux disease without esophagitis; E78.00 Pure hypercholesterolemia, unspecified; E11.9 Type 2 diabetes mellitus without complications; Z88.0 Allergy status to penicillin; Z88.7 Allergy status to serum and vaccine; Z91.013 Allergy to seafood; Z88.5 Allergy status to narcotic agent; Z88.8 Allergy status to other drugs, medicaments and biological substances; Z79.4 Long term (current) use of insulin; Z79.82 Long term (current) use of aspirin; Z79.899 Other long term (current) drug therapy; Z90.710 Acquired absence of both cervix and uterus; Z86.16 Personal history of COVID-19
CPT/HCPCS: 36415; 71045; 80053; 84484; 85025; 93005; 93010; 96374; 99284; 99285; J2919

== ENCOUNTER 2024-09-27 15:49 | Inpatient (IN) | payer MEDICARE, OTHER ==
[2024-09-27 17:11] LABS: BASOPHILS PERCENT AUTO 0.3 % (0.2-1.2); EOSINOPHILS ABSOLUTE AUTO 0.1 x10^3/uL (0.0-0.5); EOSINOPHILS PERCENT AUTO 1.9 % (0.0-4.0); HEMATOCRIT 40.5 % (33.0-47.0); HEMOGLOBIN 12.8 g/dL (12.0-16.0); LYMPHOCYTES ABSOLUTE AUTO 0.7 x10^3/uL (1.0-4.8); LYMPHOCYTES PERCENT AUTO 10.1 % (25.0-50.0); MEAN CORPUSCULAR HEMOGLOBIN 29.1 pg (26.0-32.0); MEAN CORPUSCULAR HGB CONC 31.6 g/dL (32.0-36.0); MONOCYTES ABSOLUTE AUTO 0.6 x10^3/uL (0.0-0.8); NEUTROPHILS ABSOLUTE AUTO 5.4 x10^3/uL (1.8-7.7); NEUTROPHILS PERCENT AUTO 78.7 % (50.0-80.0); PLATELET COUNT,PLT 199 x10^3/uL (130-400); WHITE BLOOD CELL COUNT,WBC 6.9 x10^3/uL (4.0-10.0)
[2024-09-27 17:24] LABS: CREATININE 2.8 mg/dL (0.55-1.02)
[2024-09-27] MEDS ORDERED: Nitroglycerin 0.4 MG Tab.SL SL PRN (17:28)
[2024-09-27] MEDS ORDERED: Hypromellose 0.3% Ophth Soln 15 ML Bottle EYEBOTH PRN (17:28)
[2024-09-27] MEDS ORDERED: Sennosides/Docusate Sodium 50-8.6 MG Tab PO PRN (17:28)
[2024-09-27] MEDS ORDERED: Polyethylene Glycol 3350 Powder 17 GM Packet PO PRN (17:28)
[2024-09-27 17:35] LABS: A/G RATIO 0.74; ALANINE AMINOTRANSFERASE,ALT 17 U/L (14-59); ALBUMIN 2.9 g/dL (3.4-5.0); ALKALINE PHOSPHATASE 131 U/L (46-116); ASPARTATE AMNIOTRANSFERASE,AST 24 U/L (15-37); BILIRUBIN TOTAL 0.7 mg/dL (0.2-1.0); BLOOD UREA NITROGEN,BUN 53 mg/dL (7-18); CALCIUM 8.6 mg/dL (8.5-10.1); CARBON DIOXIDE,CO2 29 mmol/L (21-32); CHLORIDE,CL 104 mmol/L (98-107); GLUCOSE RANDOM 157 mg/dL (70-99); POTASSIUM,K 5.6 mmol/L (3.5-5.1); PRO B-TYPE NATRIUR PEPT,BNPPRO 6912 pg/mL (<=450); PROTEIN TOTAL,TP 6.8 g/dL (6.4-8.2); SODIUM,NA 139 mmol/L (136-145)
[2024-09-27 17:37] LABS: ANION GAP 11.6 mmol/L (5-15)
[2024-09-27 17:39] LABS: ESTIMATED GFR 16 mL/min (>=60)
[2024-09-27] MEDS ORDERED: Flumazenil 0.1 MG/ML 5 ML MDV IVPUSH PRN (17:58)
[2024-09-27] MEDS: Bumetanide 2.5 MG/10 ML MDV IVPUSH SCH (18:00)
[2024-09-27] MEDS: Carvedilol 12.5 MG Tab PO SCH (18:30)
[2024-09-27] MEDS: Hypromellose 0.3% Ophth Soln 15 ML Bottle EYEBOTH SCH (20:57)
[2024-09-27] MEDS: QUEtiapine 25 MG Tab PO SCH (20:58)
[2024-09-27] MEDS: Gabapentin 100 MG Cap PO SCH (20:58)
[2024-09-27] MEDS: Prochlorperazine 5 MG Tab PO SCH (20:59)
[2024-09-27] MEDS: rOPINIRole 2 MG Tab PO SCH (20:59)
[2024-09-27] MEDS ORDERED: Gabapentin 300 MG Cap PO SCH (21:00)
[2024-09-27] MEDS: Omeprazole 20 MG Cap.CR PO SCH (21:00)
[2024-09-27] MEDS: Mirtazapine 15 MG Tab PO SCH (21:00)
[2024-09-27] MEDS ORDERED: hydrOXYzine HCl 25 MG Tab PO SCH (21:00)
[2024-09-27] MEDS ORDERED: Magnesium Oxide 400 MG Tab PO SCH (21:00)
[2024-09-27] MEDS: Camphor/Menthol 0.5-0.5% Lotion 222 ML Bottle TOP SCH (21:02)
[2024-09-27] MEDS: Nystatin Crm 30 GM Tube TOP SCH (21:02)
[2024-09-27] MEDS: Acetaminophen 325 MG Tab PO PRN (23:29)
[2024-09-27] MEDS: LORazepam 2 MG/ML SDV IVPUSH PRN (23:30)
[2024-09-28] MEDS: Lactated Ringers 1,000 ML IV SCH (03:25)
[2024-09-28 07:18] LABS: APPEARANCE,URINE CLEAR (CLEAR); BILIRUBIN,URINE NEGATIVE (NEGATIVE); COLOR,URINE YELLOW (YELLOW); GLUCOSE,URINE NEGATIVE (NEGATIVE); KETONES,URINE NEGATIVE (NEGATIVE); LEUKOCYTE ESTERASE,URINE NEGATIVE (NEGATIVE); NITRITE,URINE NEGATIVE (NEGATIVE); OCCULT BLOOD,URINE NEGATIVE (NEGATIVE); PH,URINE 6.5 (5.0-8.0); PROTEIN,URINE NEGATIVE (NEGATIVE); UROBILINOGEN,URINE 0.2 EU/dL (0.2)
[2024-09-28 07:21] LABS: BASOPHILS PERCENT AUTO 0.3 % (0.2-1.2); EOSINOPHILS ABSOLUTE AUTO 0.3 x10^3/uL (0.0-0.5); EOSINOPHILS PERCENT AUTO 4.2 % (0.0-4.0); HEMATOCRIT 37.7 % (33.0-47.0); HEMOGLOBIN 11.8 g/dL (12.0-16.0); IMMATURE GRAN ABSOLUTE AUTO 0.01 x10^3/uL (0.00-0.07); LYMPHOCYTES ABSOLUTE AUTO 0.7 x10^3/uL (1.0-4.8); LYMPHOCYTES PERCENT AUTO 11.6 % (25.0-50.0); MEAN CORPUSCULAR HGB CONC 31.3 g/dL (32.0-36.0); MEAN CORPUSCULAR VOLUME 92.6 fL (78.0-93.0); MONOCYTES ABSOLUTE AUTO 0.6 x10^3/uL (0.0-0.8); MONOCYTES PERCENT AUTO 10.6 % (2.0-11.0); NEUTROPHILS ABSOLUTE AUTO 4.4 x10^3/uL (1.8-7.7); NEUTROPHILS PERCENT AUTO 73.1 % (50.0-80.0); PLATELET COUNT,PLT 194 x10^3/uL (130-400); RED BLOOD CELL COUNT 4.07 x10^6/uL (4.00-5.50)
[2024-09-28 07:49] LABS: A/G RATIO 0.74; ALBUMIN 2.6 g/dL (3.4-5.0); BILIRUBIN TOTAL 0.8 mg/dL (0.2-1.0); C-REACTIVE PROTEIN 1.02 mg/dL (<=0.50); CALCIUM 8.7 mg/dL (8.5-10.1); CREATININE 2.7 mg/dL (0.55-1.02); EST CRCL DRUG DOSING (CG) 12.2 mL/min; POTASSIUM,K 4.6 mmol/L (3.5-5.1); PROTEIN TOTAL,TP 6.1 g/dL (6.4-8.2)
[2024-09-28 07:50] LABS: ANION GAP 10.6 mmol/L (5-15)
[2024-09-28] MEDS ORDERED: Insulin Glarg,Human.Rec.Analog 100 Unit/ML 10 ML Vial SUBCUT SCH (09:00)
[2024-09-28] MEDS: glipiZIDE 5 MG Tab.ER PO SCH (10:07)
[2024-09-28] MEDS: Aspirin 81 MG Tab.EC PO SCH (10:22)
[2024-09-28] MEDS: Sertraline 25 MG Tab PO SCH (10:22)
[2024-09-28] MEDS: Iron Polysaccharides Complex 150 MG Cap PO SCH (10:24)
[2024-09-28] MEDS: Losartan 25 MG Tab PO SCH (10:24)
[2024-09-28] MEDS: Cyanocobalamin (Vitamin B12) 1,000 MCG Tab PO SCH (10:26)
[2024-09-28] MEDS: Spironolactone 25 MG Tab PO SCH (10:27)
[2024-09-28] MEDS: Magnesium Oxide 400 MG Tab PO SCH (10:27)
[2024-09-28] MEDS: Multivitamin Tab PO SCH (10:29)
[2024-09-28] MEDS: Lidocaine 4% 1 each Patch TOP SCH (10:34)
[2024-09-28] MEDS: Miconazole 2% Vaginal Crm 45 GM Tube TOP SCH (10:53)
[2024-09-28] MEDS: Insulin Glarg,Human.Rec.Analog 100 Unit/ML 10 ML Vial SUBCUT SCH (11:00)
[2024-09-28] MEDS: Miconazole 2% Top Powder 45 GM Container TOP SCH (14:22)
[2024-09-28] MEDS: Enoxaparin 30 MG/0.3 ML Syringe SUBCUT SCH (14:23)
[2024-09-28] MEDS: ALPRAZolam 0.25 MG Tab PO PRN (22:21)
[2024-09-29 08:40] LABS: BASOPHILS PERCENT AUTO 0.3 % (0.2-1.2); EOSINOPHILS ABSOLUTE AUTO 0.2 x10^3/uL (0.0-0.5); EOSINOPHILS PERCENT AUTO 2.3 % (0.0-4.0); HEMATOCRIT 39.7 % (33.0-47.0); HEMOGLOBIN 12.5 g/dL (12.0-16.0); IMMATURE GRAN ABSOLUTE AUTO 0.01 x10^3/uL (0.00-0.07); LYMPHOCYTES PERCENT AUTO 7.4 % (25.0-50.0); MEAN CORPUSCULAR HGB CONC 31.5 g/dL (32.0-36.0); MEAN CORPUSCULAR VOLUME 92.1 fL (78.0-93.0); MONOCYTES ABSOLUTE AUTO 0.6 x10^3/uL (0.0-0.8); MONOCYTES PERCENT AUTO 9.6 % (2.0-11.0); NEUTROPHILS ABSOLUTE AUTO 5.3 x10^3/uL (1.8-7.7); NEUTROPHILS PERCENT AUTO 80.2 % (50.0-80.0); PLATELET COUNT,PLT 206 x10^3/uL (130-400); RED BLOOD CELL COUNT 4.31 x10^6/uL (4.00-5.50); WHITE BLOOD CELL COUNT,WBC 6.6 x10^3/uL (4.0-10.0)
[2024-09-29] MEDS ORDERED: Lidocaine 4% 1 each Patch TOP SCH (09:00)
[2024-09-29 09:06] LABS: CALCIUM 8.8 mg/dL (8.5-10.1); CREATININE 2.4 mg/dL (0.55-1.02); EST CRCL DRUG DOSING (CG) 13.72 mL/min; POTASSIUM,K 4.4 mmol/L (3.5-5.1)
[2024-09-29 09:07] LABS: ANION GAP 9.4 mmol/L (5-15)
[2024-09-29 09:27] LABS: LYMPHOCYTES ABSOLUTE AUTO 0.5 x10^3/uL (1.0-4.8)
[2024-09-29] MEDS: Bumetanide 2.5 MG/10 ML MDV IVPUSH SCH (09:44)
[2024-09-29] MEDS: Prochlorperazine 5 MG Tab PO PRN (19:25)
[2024-09-30 08:00] LABS: BASOPHILS PERCENT AUTO 0.4 % (0.2-1.2); EOSINOPHILS ABSOLUTE AUTO 0.1 x10^3/uL (0.0-0.5); EOSINOPHILS PERCENT AUTO 2.3 % (0.0-4.0); HEMATOCRIT 36.7 % (33.0-47.0); HEMOGLOBIN 11.7 g/dL (12.0-16.0); IMMATURE GRAN ABSOLUTE AUTO 0.01 x10^3/uL (0.00-0.07); LYMPHOCYTES ABSOLUTE AUTO 0.5 x10^3/uL (1.0-4.8); LYMPHOCYTES PERCENT AUTO 9.7 % (25.0-50.0); MEAN CORPUSCULAR HGB CONC 31.9 g/dL (32.0-36.0); MEAN CORPUSCULAR VOLUME 90.8 fL (78.0-93.0); MONOCYTES ABSOLUTE AUTO 0.6 x10^3/uL (0.0-0.8); MONOCYTES PERCENT AUTO 10.8 % (2.0-11.0); NEUTROPHILS ABSOLUTE AUTO 4.3 x10^3/uL (1.8-7.7); NEUTROPHILS PERCENT AUTO 76.6 % (50.0-80.0); PLATELET COUNT,PLT 192 x10^3/uL (130-400); RED BLOOD CELL COUNT 4.04 x10^6/uL (4.00-5.50); WHITE BLOOD CELL COUNT,WBC 5.6 x10^3/uL (4.0-10.0)
[2024-09-30 08:33] LABS: CALCIUM 8.7 mg/dL (8.5-10.1); CREATININE 2.2 mg/dL (0.55-1.02); EST CRCL DRUG DOSING (CG) 14.97 mL/min
[2024-09-30] MEDS: Doxycycline Monohydrate 100 MG Cap PO SCH (08:36)
[2024-09-30] MEDS: busPIRone 5 MG Tab PO SCH (08:36)
[2024-09-30] MEDS: Carvedilol 12.5 MG Tab PO SCH (08:42)
[2024-09-30] MEDS: Enoxaparin 30 MG/0.3 ML Syringe SUBCUT SCH (14:00)
[2024-09-30] MEDS: CARVEDILOL PO SCH (18:42)
[2024-09-30] MEDS: ALPRAZolam 0.25 MG Tab PO PRN (22:52)
[2024-10-01 07:18] LABS: BASOPHILS PERCENT AUTO 0.5 % (0.2-1.2); EOSINOPHILS ABSOLUTE AUTO 0.2 x10^3/uL (0.0-0.5); EOSINOPHILS PERCENT AUTO 4.5 % (0.0-4.0); HEMATOCRIT 38.4 % (33.0-47.0); HEMOGLOBIN 12.1 g/dL (12.0-16.0); LYMPHOCYTES ABSOLUTE AUTO 0.6 x10^3/uL (1.0-4.8); LYMPHOCYTES PERCENT AUTO 14.3 % (25.0-50.0); MEAN CORPUSCULAR HGB CONC 31.5 g/dL (32.0-36.0); MEAN CORPUSCULAR VOLUME 92.1 fL (78.0-93.0); MONOCYTES ABSOLUTE AUTO 0.7 x10^3/uL (0.0-0.8); NEUTROPHILS ABSOLUTE AUTO 2.9 x10^3/uL (1.8-7.7); NEUTROPHILS PERCENT AUTO 65.7 % (50.0-80.0); PLATELET COUNT,PLT 182 x10^3/uL (130-400); RED BLOOD CELL COUNT 4.17 x10^6/uL (4.00-5.50); WHITE BLOOD CELL COUNT,WBC 4.4 x10^3/uL (4.0-10.0)
[2024-10-01 07:35] LABS: C-REACTIVE PROTEIN 1.36 mg/dL (<=0.50); CALCIUM 8.6 mg/dL (8.5-10.1); CREATININE 2.2 mg/dL (0.55-1.02); EST CRCL DRUG DOSING (CG) 14.97 mL/min; POTASSIUM,K 3.8 mmol/L (3.5-5.1)
[2024-10-01 07:37] LABS: ANION GAP 9.8 mmol/L (5-15)
[2024-10-01] MEDS: Torsemide 20 MG Tab PO SCH (09:29)
[2024-10-01] MEDS: Lactulose Soln 10 GM/15 ML 30 ML UD Cup PO SCH (09:35)
[2024-10-01] MEDS: Sodium Chloride 0.9% 10 ML Syringe FLUSH PRN (20:05)
[2024-10-02 08:29] LABS: BASOPHILS PERCENT AUTO 0.6 % (0.2-1.2); EOSINOPHILS ABSOLUTE AUTO 0.2 x10^3/uL (0.0-0.5); EOSINOPHILS PERCENT AUTO 4.1 % (0.0-4.0); HEMATOCRIT 41.8 % (33.0-47.0); HEMOGLOBIN 13.2 g/dL (12.0-16.0); LYMPHOCYTES ABSOLUTE AUTO 0.8 x10^3/uL (1.0-4.8); MEAN CORPUSCULAR HEMOGLOBIN 28.8 pg (26.0-32.0); MEAN CORPUSCULAR HGB CONC 31.6 g/dL (32.0-36.0); MEAN CORPUSCULAR VOLUME 91.3 fL (78.0-93.0); MONOCYTES ABSOLUTE AUTO 0.6 x10^3/uL (0.0-0.8); MONOCYTES PERCENT AUTO 13.1 % (2.0-11.0); NEUTROPHILS ABSOLUTE AUTO 3.2 x10^3/uL (1.8-7.7); NEUTROPHILS PERCENT AUTO 66.2 % (50.0-80.0); PLATELET COUNT,PLT 203 x10^3/uL (130-400); RED BLOOD CELL COUNT 4.58 x10^6/uL (4.00-5.50); WHITE BLOOD CELL COUNT,WBC 4.9 x10^3/uL (4.0-10.0)
[2024-10-02 09:00] LABS: A/G RATIO 0.7; ALBUMIN 3.1 g/dL (3.4-5.0); BILIRUBIN TOTAL 1.2 mg/dL (0.2-1.0); CALCIUM 9.1 mg/dL (8.5-10.1); CREATININE 2.1 mg/dL (0.55-1.02); EST CRCL DRUG DOSING (CG) 15.68 mL/min; POTASSIUM,K 3.7 mmol/L (3.5-5.1); PROTEIN TOTAL,TP 7.5 g/dL (6.4-8.2)
[2024-10-02 09:01] LABS: ANION GAP 11.7 mmol/L (5-15)
[2024-10-03 08:03] LABS: BASOPHILS PERCENT AUTO 0.4 % (0.2-1.2); EOSINOPHILS ABSOLUTE AUTO 0.2 x10^3/uL (0.0-0.5); EOSINOPHILS PERCENT AUTO 4.4 % (0.0-4.0); HEMATOCRIT 39.1 % (33.0-47.0); HEMOGLOBIN 12.2 g/dL (12.0-16.0); IMMATURE GRAN ABSOLUTE AUTO 0.01 x10^3/uL (0.00-0.07); LYMPHOCYTES ABSOLUTE AUTO 0.7 x10^3/uL (1.0-4.8); LYMPHOCYTES PERCENT AUTO 13.9 % (25.0-50.0); MEAN CORPUSCULAR HEMOGLOBIN 28.7 pg (26.0-32.0); MEAN CORPUSCULAR HGB CONC 31.2 g/dL (32.0-36.0); MONOCYTES ABSOLUTE AUTO 0.8 x10^3/uL (0.0-0.8); MONOCYTES PERCENT AUTO 14.9 % (2.0-11.0); NEUTROPHILS ABSOLUTE AUTO 3.4 x10^3/uL (1.8-7.7); NEUTROPHILS PERCENT AUTO 66.2 % (50.0-80.0); PLATELET COUNT,PLT 162 x10^3/uL (130-400); RED BLOOD CELL COUNT 4.25 x10^6/uL (4.00-5.50); WHITE BLOOD CELL COUNT,WBC 5.1 x10^3/uL (4.0-10.0)
[2024-10-03 08:33] LABS: A/G RATIO 0.7; CALCIUM 9.1 mg/dL (8.5-10.1); CREATININE 2.1 mg/dL (0.55-1.02); EST CRCL DRUG DOSING (CG) 15.68 mL/min; POTASSIUM,K 3.3 mmol/L (3.5-5.1); PROTEIN TOTAL,TP 7.3 g/dL (6.4-8.2)
[2024-10-03 08:36] LABS: ANION GAP 10.3 mmol/L (5-15)
[2024-10-03] MEDS: Potassium Chloride 20 MEQ Tab.ER PO ONE (12:03)
[2024-10-04] MEDS: Mineral Oil/Petrolatum/Phenylephrine/Shark Liver Oil Oint 57 GM Tube RECTAL PRN (05:07)
[2024-10-04 08:30] LABS: EST CRCL DRUG DOSING (CG) 16.47 mL/min; MAGNESIUM 1.6 mg/dL (1.8-2.4); POTASSIUM,K 3.8 mmol/L (3.5-5.1)
[2024-10-04 08:32] LABS: ANION GAP 10.8 mmol/L (5-15)
[2024-10-04] MEDS: Carvedilol 12.5 MG Tab PO SCH (08:33)
[2024-10-04 11:03] VITALS: BP 137/63; PULSE 72
[2024-10-04] MEDS ORDERED: Magnesium Oxide 400 MG Tab PO SCH (12:00)
== END 2024-10-04 11:00 | disposition swing bed (61) | DRG 291 ==
LOC: VM.MS 15:49
PROVIDERS: ADMIT Family Medicine; ATTEND Family Medicine
DX: I13.0 Hypertensive heart and chronic kidney disease with heart failure and stage 1 through stage 4 chronic kidney disease, or unspecified chronic kidney disease (principal); I50.33 Acute on chronic diastolic (congestive) heart failure; N17.9 Acute kidney failure, unspecified; R18.8 Other ascites; G93.40 Encephalopathy, unspecified; L03.115 Cellulitis of right lower limb; L03.116 Cellulitis of left lower limb; L03.113 Cellulitis of right upper limb; E72.20 Disorder of urea cycle metabolism, unspecified; G25.81 Restless legs syndrome; E11.51 Type 2 diabetes mellitus with diabetic peripheral angiopathy without gangrene; N18.32 Chronic kidney disease, stage 3b; E78.00 Pure hypercholesterolemia, unspecified; I44.7 Left bundle-branch block, unspecified; I25.10 Atherosclerotic heart disease of native coronary artery without angina pectoris; G47.00 Insomnia, unspecified; M79.7 Fibromyalgia; G89.29 Other chronic pain; F41.9 Anxiety disorder, unspecified; M10.9 Gout, unspecified; H26.9 Unspecified cataract; F10.90 Alcohol use, unspecified, uncomplicated; E87.5 Hyperkalemia; L30.9 Dermatitis, unspecified; E53.8 Deficiency of other specified B group vitamins; L28.0 Lichen simplex chronicus; Z90.49 Acquired absence of other specified parts of digestive tract; Z98.49 Cataract extraction status, unspecified eye; Z88.7 Allergy status to serum and vaccine; Z88.8 Allergy status to other drugs, medicaments and biological substances; Z88.1 Allergy status to other antibiotic agents; Z95.5 Presence of coronary angioplasty implant and graft; Z98.890 Other specified postprocedural states; Z89.512 Acquired absence of left leg below knee; Z89.511 Acquired absence of right leg below knee; Z90.89 Acquired absence of other organs; Z90.710 Acquired absence of both cervix and uterus; Z91.81 History of falling; I25.2 Old myocardial infarction; Z88.5 Allergy status to narcotic agent; Z91.013 Allergy to seafood
CPT/HCPCS: 36415; 70450; 71045; 74176; 80048; 80053; 80143; 81003; 82140; 82947; 83690; 83735; 83880; 85025; 86140; 93005; 94760; 97110-GP; 97129-GO; 97162-GP; 97165-GO; 97530-GP; 97535-GO; 99232; A9270-GY; J1650; J1815-GY; J1939; J2060; J7120; Q0164

== ENCOUNTER 2024-10-04 08:16 | Inpatient (IN) | payer MEDICARE, OTHER ==
[2024-10-04] MEDS ORDERED: Flumazenil 0.1 MG/ML 5 ML MDV IVPUSH PRN (09:28)
[2024-10-04] MEDS ORDERED: Nitroglycerin 0.4 MG Tab.SL SL PRN (09:28)
[2024-10-04] MEDS ORDERED: 50% Dextrose in Water 50 ML Syringe IVPUSH PRN (09:28)
[2024-10-04] MEDS ORDERED: Polyethylene Glycol 3350 Powder 17 GM Packet PO PRN (09:28)
[2024-10-04] MEDS ORDERED: Sennosides/Docusate Sodium 50-8.6 MG Tab PO PRN (09:28)
[2024-10-04] MEDS ORDERED: Sodium Chloride 0.9% 10 ML Syringe FLUSH PRN (09:28)
[2024-10-04] MEDS ORDERED: Glucagon,Human Recombinant 1 MG Vial IM PRN (09:28)
[2024-10-04] MEDS ORDERED: Enoxaparin 30 MG/0.3 ML Syringe SUBCUT SCH (14:00)
[2024-10-04] MEDS: Acetaminophen 325 MG Tab PO PRN (17:14)
[2024-10-04] MEDS: Omeprazole 20 MG Cap.CR PO SCH (17:14)
[2024-10-04] MEDS: Carvedilol 25 MG Tab PO SCH (17:15)
[2024-10-04] MEDS ORDERED: Nystatin Crm 30 GM Tube TOP SCH (21:00)
[2024-10-04] MEDS: Hypromellose 0.3% Ophth Soln 15 ML Bottle EYEBOTH SCH (21:11)
[2024-10-04] MEDS: Gabapentin 100 MG Cap PO SCH (21:12)
[2024-10-04] MEDS: Doxycycline Monohydrate 100 MG Cap PO SCH (21:13)
[2024-10-04] MEDS: rOPINIRole 0.5 MG Tab PO SCH (21:14)
[2024-10-04] MEDS: Mirtazapine 15 MG Tab PO SCH (21:14)
[2024-10-04] MEDS: busPIRone 5 MG Tab PO SCH (21:15)
[2024-10-04] MEDS: QUEtiapine 25 MG Tab PO SCH (21:15)
[2024-10-04] MEDS: Prochlorperazine 5 MG Tab PO SCH (21:15)
[2024-10-04] MEDS: Magnesium Oxide 400 MG Tab PO SCH (21:15)
[2024-10-04] MEDS: Miconazole 2% Top Powder 45 GM Container TOP SCH (21:16)
[2024-10-04] MEDS: Camphor/Menthol 0.5-0.5% Lotion 222 ML Bottle TOP SCH (21:17)
[2024-10-04] MEDS: Mineral Oil/Petrolatum/Phenylephrine/Shark Liver Oil Oint 57 GM Tube RECTAL PRN (22:51)
[2024-10-04] MEDS: ALPRAZolam 0.5 MG Tab PO PRN (23:34)
[2024-10-05 06:52] LABS: BASOPHILS PERCENT AUTO 0.6 % (0.2-1.2); EOSINOPHILS ABSOLUTE AUTO 0.2 x10^3/uL (0.0-0.5); EOSINOPHILS PERCENT AUTO 3.3 % (0.0-4.0); HEMATOCRIT 36.9 % (33.0-47.0); HEMOGLOBIN 11.7 g/dL (12.0-16.0); IMMATURE GRAN ABSOLUTE AUTO 0.01 x10^3/uL (0.00-0.07); LYMPHOCYTES ABSOLUTE AUTO 0.7 x10^3/uL (1.0-4.8); LYMPHOCYTES PERCENT AUTO 14.4 % (25.0-50.0); MEAN CORPUSCULAR HEMOGLOBIN 28.7 pg (26.0-32.0); MEAN CORPUSCULAR HGB CONC 31.7 g/dL (32.0-36.0); MEAN CORPUSCULAR VOLUME 90.7 fL (78.0-93.0); MONOCYTES ABSOLUTE AUTO 0.7 x10^3/uL (0.0-0.8); MONOCYTES PERCENT AUTO 13.3 % (2.0-11.0); NEUTROPHILS ABSOLUTE AUTO 3.3 x10^3/uL (1.8-7.7); NEUTROPHILS PERCENT AUTO 68.2 % (50.0-80.0); PLATELET COUNT,PLT 144 x10^3/uL (130-400); RED BLOOD CELL COUNT 4.07 x10^6/uL (4.00-5.50); WHITE BLOOD CELL COUNT,WBC 4.9 x10^3/uL (4.0-10.0)
[2024-10-05 07:06] LABS: INR 1.2 (0.9-1.1); PROTHROMBIN TIME 11.8 SEC (8.9-11.5); PTT,PARTIAL THROMBOPLSTIN TIME 25.4 SEC (21.9-33.8)
[2024-10-05 07:16] LABS: A/G RATIO 0.67; ALBUMIN 2.6 g/dL (3.4-5.0); BILIRUBIN TOTAL 0.8 mg/dL (0.2-1.0); CALCIUM 8.7 mg/dL (8.5-10.1); EST CRCL DRUG DOSING (CG) 13.7 mL/min; MAGNESIUM 1.5 mg/dL (1.8-2.4); POTASSIUM,K 3.8 mmol/L (3.5-5.1); PROTEIN TOTAL,TP 6.5 g/dL (6.4-8.2)
[2024-10-05 07:20] LABS: ANION GAP 10.8 mmol/L (5-15)
[2024-10-05] MEDS ORDERED: Magnesium Oxide 400 MG Tab PO SCH (09:00)
[2024-10-05] MEDS ORDERED: Lactulose Soln 10 GM/15 ML 30 ML UD Cup PO SCH (09:00)
[2024-10-05] MEDS: Losartan 25 MG Tab PO SCH (09:37)
[2024-10-05] MEDS: Multivitamin Tab PO SCH (09:38)
[2024-10-05] MEDS: Aspirin 81 MG Tab.EC PO SCH (09:38)
[2024-10-05] MEDS: Iron Polysaccharides Complex 150 MG Cap PO SCH (09:38)
[2024-10-05] MEDS: glipiZIDE 5 MG Tab.ER PO SCH (09:38)
[2024-10-05] MEDS: Torsemide 20 MG Tab PO SCH (09:38)
[2024-10-05] MEDS: Magnesium Oxide 400 MG Tab PO SCH (09:39)
[2024-10-05] MEDS: Spironolactone 25 MG Tab PO SCH (09:39)
[2024-10-05] MEDS: Sertraline 25 MG Tab PO SCH (09:39)
[2024-10-05] MEDS: Lactulose Soln 10 GM/15 ML 30 ML UD Cup PO SCH (09:42)
[2024-10-05] MEDS: Lidocaine 4% 1 each Patch TOP SCH (09:42)
[2024-10-05] MEDS: Insulin Glarg,Human.Rec.Analog 100 Unit/ML 10 ML Vial SUBCUT SCH (09:44)
[2024-10-05] MEDS: Cyanocobalamin (Vitamin B12) 1,000 MCG Tab PO SCH (09:51)
[2024-10-05] MEDS: Mirtazapine 15 MG Tab PO SCH (20:37)
[2024-10-05] MEDS: rOPINIRole 0.5 MG Tab PO SCH (20:38)
[2024-10-07] MEDS: Prochlorperazine 5 MG Tab PO PRN (09:36)
[2024-10-07] MEDS: busPIRone 5 MG Tab PO SCH (09:38)
[2024-10-07] MEDS: Hypromellose 0.3% Ophth Soln 15 ML Bottle EYEBOTH PRN (09:47)
[2024-10-07] MEDS: Lidocaine 2% HCl 11 ML Jelly Filled Syringe MUCMEM ONE (13:41)
[2024-10-08 07:13] LABS: BASOPHILS PERCENT AUTO 0.6 % (0.2-1.2); EOSINOPHILS ABSOLUTE AUTO 0.2 x10^3/uL (0.0-0.5); EOSINOPHILS PERCENT AUTO 3.9 % (0.0-4.0); HEMATOCRIT 38.9 % (33.0-47.0); HEMOGLOBIN 12.1 g/dL (12.0-16.0); LYMPHOCYTES ABSOLUTE AUTO 0.6 x10^3/uL (1.0-4.8); MEAN CORPUSCULAR HGB CONC 31.1 g/dL (32.0-36.0); MEAN CORPUSCULAR VOLUME 93.3 fL (78.0-93.0); MONOCYTES ABSOLUTE AUTO 0.7 x10^3/uL (0.0-0.8); MONOCYTES PERCENT AUTO 12.8 % (2.0-11.0); NEUTROPHILS ABSOLUTE AUTO 3.6 x10^3/uL (1.8-7.7); NEUTROPHILS PERCENT AUTO 70.7 % (50.0-80.0); PLATELET COUNT,PLT 145 x10^3/uL (130-400); RED BLOOD CELL COUNT 4.17 x10^6/uL (4.00-5.50)
[2024-10-08 07:23] LABS: WHITE BLOOD CELL COUNT,WBC 5.2 x10^3/uL (4.0-10.0)
[2024-10-08 07:55] LABS: A/G RATIO 0.66; ALBUMIN 2.7 g/dL (3.4-5.0); ANION GAP 13.9 mmol/L (5-15); BILIRUBIN TOTAL 0.8 mg/dL (0.2-1.0); C-REACTIVE PROTEIN 0.67 mg/dL (<=0.50); CALCIUM 8.7 mg/dL (8.5-10.1); CREATININE 1.9 mg/dL (0.55-1.02); EST CRCL DRUG DOSING (CG) 14.42 mL/min; MAGNESIUM 1.9 mg/dL (1.8-2.4); POTASSIUM,K 3.9 mmol/L (3.5-5.1); PROTEIN TOTAL,TP 6.8 g/dL (6.4-8.2)
[2024-10-08] MEDS: Losartan 25 MG Tab PO SCH (10:55)
[2024-10-09] MEDS: Menthol/Zinc Oxide Ointment 3.5 GM Tube TOP PRN (14:19)
[2024-10-11 07:17] LABS: BASOPHILS PERCENT AUTO 0.4 % (0.2-1.2); EOSINOPHILS ABSOLUTE AUTO 0.1 x10^3/uL (0.0-0.5); EOSINOPHILS PERCENT AUTO 2.6 % (0.0-4.0); HEMATOCRIT 41.3 % (33.0-47.0); IMMATURE GRAN ABSOLUTE AUTO 0.01 x10^3/uL (0.00-0.07); LYMPHOCYTES ABSOLUTE AUTO 0.6 x10^3/uL (1.0-4.8); LYMPHOCYTES PERCENT AUTO 11.4 % (25.0-50.0); MEAN CORPUSCULAR HGB CONC 31.5 g/dL (32.0-36.0); MONOCYTES ABSOLUTE AUTO 0.6 x10^3/uL (0.0-0.8); MONOCYTES PERCENT AUTO 11.4 % (2.0-11.0); NEUTROPHILS ABSOLUTE AUTO 3.6 x10^3/uL (1.8-7.7); PLATELET COUNT,PLT 174 x10^3/uL (130-400); RED BLOOD CELL COUNT 4.49 x10^6/uL (4.00-5.50); WHITE BLOOD CELL COUNT,WBC 4.9 x10^3/uL (4.0-10.0)
[2024-10-11 07:20] LABS: CALCIUM 9.2 mg/dL (8.5-10.1); CREATININE 1.9 mg/dL (0.55-1.02); EST CRCL DRUG DOSING (CG) 14.42 mL/min; MAGNESIUM 1.9 mg/dL (1.8-2.4); POTASSIUM,K 3.7 mmol/L (3.5-5.1)
[2024-10-11 07:22] LABS: ANION GAP 10.7 mmol/L (5-15)
[2024-10-11] MEDS: Lactulose Soln 10 GM/15 ML 15 ML UD Cup PO SCH (11:07)
[2024-10-12 07:03] LABS: BASOPHILS PERCENT AUTO 0.5 % (0.2-1.2); EOSINOPHILS ABSOLUTE AUTO 0.2 x10^3/uL (0.0-0.5); EOSINOPHILS PERCENT AUTO 4.2 % (0.0-4.0); HEMATOCRIT 39.6 % (33.0-47.0); HEMOGLOBIN 12.5 g/dL (12.0-16.0); IMMATURE GRAN ABSOLUTE AUTO 0.01 x10^3/uL (0.00-0.07); LYMPHOCYTES ABSOLUTE AUTO 0.7 x10^3/uL (1.0-4.8); LYMPHOCYTES PERCENT AUTO 16.4 % (25.0-50.0); MEAN CORPUSCULAR HGB CONC 31.6 g/dL (32.0-36.0); MEAN CORPUSCULAR VOLUME 91.9 fL (78.0-93.0); MONOCYTES ABSOLUTE AUTO 0.5 x10^3/uL (0.0-0.8); NEUTROPHILS ABSOLUTE AUTO 2.9 x10^3/uL (1.8-7.7); NEUTROPHILS PERCENT AUTO 66.7 % (50.0-80.0); PLATELET COUNT,PLT 170 x10^3/uL (130-400); RED BLOOD CELL COUNT 4.31 x10^6/uL (4.00-5.50); WHITE BLOOD CELL COUNT,WBC 4.3 x10^3/uL (4.0-10.0)
[2024-10-12] MEDS: Sertraline 25 MG Tab PO SCH (08:28)
[2024-10-14 07:43] LABS: BLOOD UREA NITROGEN,BUN 30 mg/dL (7-18); CALCIUM 9.1 mg/dL (8.5-10.1); CARBON DIOXIDE,CO2 31 mmol/L (21-32); CHLORIDE,CL 105 mmol/L (98-107); GLUCOSE RANDOM 103 mg/dL (70-99); POTASSIUM,K 3.9 mmol/L (3.5-5.1); PRO B-TYPE NATRIUR PEPT,BNPPRO 5816 pg/mL (<=450); SODIUM,NA 144 mmol/L (136-145)
[2024-10-14 07:45] LABS: ANION GAP 11.9 mmol/L (5-15); C-REACTIVE PROTEIN < 0.50 mg/dL (<=0.50); ESTIMATED GFR 23 mL/min (>=60)
[2024-10-14 11:46] VITALS: BP 175/77; PULSE 73
== END 2024-10-14 11:15 | DRG 947 ==
LOC: VM.MS 11:15
PROVIDERS: ADMIT Family Medicine; ATTEND Family Medicine
DX: R53.1 Weakness (principal); I50.23 Acute on chronic systolic (congestive) heart failure; I13.0 Hypertensive heart and chronic kidney disease with heart failure and stage 1 through stage 4 chronic kidney disease, or unspecified chronic kidney disease; N17.9 Acute kidney failure, unspecified; R18.8 Other ascites; L03.115 Cellulitis of right lower limb; L03.116 Cellulitis of left lower limb; F32.A Depression, unspecified; E11.51 Type 2 diabetes mellitus with diabetic peripheral angiopathy without gangrene; N18.32 Chronic kidney disease, stage 3b; E11.22 Type 2 diabetes mellitus with diabetic chronic kidney disease; E78.00 Pure hypercholesterolemia, unspecified; I25.10 Atherosclerotic heart disease of native coronary artery without angina pectoris; G25.81 Restless legs syndrome; G47.00 Insomnia, unspecified; M10.9 Gout, unspecified; G89.29 Other chronic pain; M25.559 Pain in unspecified hip; M79.7 Fibromyalgia; E11.40 Type 2 diabetes mellitus with diabetic neuropathy, unspecified; M25.519 Pain in unspecified shoulder; F10.90 Alcohol use, unspecified, uncomplicated; R41.0 Disorientation, unspecified; E87.5 Hyperkalemia; L30.8 Other specified dermatitis; E53.8 Deficiency of other specified B group vitamins; F41.9 Anxiety disorder, unspecified; H26.9 Unspecified cataract; E83.42 Hypomagnesemia; R79.89 Other specified abnormal findings of blood chemistry; Z98.49 Cataract extraction status, unspecified eye; I25.2 Old myocardial infarction; Z79.1 Long term (current) use of non-steroidal anti-inflammatories (NSAID); Z79.899 Other long term (current) drug therapy; Z88.7 Allergy status to serum and vaccine; Z88.8 Allergy status to other drugs, medicaments and biological substances; Z88.1 Allergy status to other antibiotic agents; Z88.5 Allergy status to narcotic agent; Z91.013 Allergy to seafood; Z95.5 Presence of coronary angioplasty implant and graft; Z90.49 Acquired absence of other specified parts of digestive tract; Z89.512 Acquired absence of left leg below knee; Z89.511 Acquired absence of right leg below knee; Z91.81 History of falling; Z90.710 Acquired absence of both cervix and uterus; Z90.89 Acquired absence of other organs; Z98.890 Other specified postprocedural states
CPT/HCPCS: 36415; 80048; 80053; 82140; 82947; 83735; 83880; 85025; 85610; 85730; 86140; 94760; 95851-GO; 97110-GP; 97530-GO; 97530-GP; 97535-GO; A9270-GY; Q0164

== ENCOUNTER 2024-10-20 13:31 | Emergency (ER) | payer MEDICARE, OTHER ==
[2024-10-20 13:48] VITALS: BP 162/68; PULSE 75
[2024-10-20 14:25] LABS: BASOPHILS PERCENT AUTO 0.1 % (0.2-1.2); EOSINOPHILS ABSOLUTE AUTO 0.1 x10^3/uL (0.0-0.5); EOSINOPHILS PERCENT AUTO 1.7 % (0.0-4.0); HEMATOCRIT 49.1 % (33.0-47.0); HEMOGLOBIN 15.7 g/dL (12.0-16.0); IMMATURE GRAN ABSOLUTE AUTO 0.01 x10^3/uL (0.00-0.07); LYMPHOCYTES ABSOLUTE AUTO 0.7 x10^3/uL (1.0-4.8); LYMPHOCYTES PERCENT AUTO 10.2 % (25.0-50.0); MEAN CORPUSCULAR HEMOGLOBIN 29.3 pg (26.0-32.0); MEAN CORPUSCULAR VOLUME 91.6 fL (78.0-93.0); MONOCYTES ABSOLUTE AUTO 0.8 x10^3/uL (0.0-0.8); MONOCYTES PERCENT AUTO 10.6 % (2.0-11.0); NEUTROPHILS ABSOLUTE AUTO 5.6 x10^3/uL (1.8-7.7); NEUTROPHILS PERCENT AUTO 77.3 % (50.0-80.0); PLATELET COUNT,PLT 182 x10^3/uL (130-400); RED BLOOD CELL COUNT 5.36 x10^6/uL (4.00-5.50); WHITE BLOOD CELL COUNT,WBC 7.2 x10^3/uL (4.0-10.0)
[2024-10-20 14:40] LABS: A/G RATIO 0.63; ALANINE AMINOTRANSFERASE,ALT 15 U/L (14-59); ALBUMIN 3.1 g/dL (3.4-5.0); ALKALINE PHOSPHATASE 142 U/L (46-116); ANION GAP 13.1 mmol/L (5-15); ASPARTATE AMNIOTRANSFERASE,AST 24 U/L (15-37); BILIRUBIN TOTAL 1.4 mg/dL (0.2-1.0); BLOOD UREA NITROGEN,BUN 40 mg/dL (7-18); CALCIUM 9.5 mg/dL (8.5-10.1); CARBON DIOXIDE,CO2 30 mmol/L (21-32); CHLORIDE,CL 102 mmol/L (98-107); CREATININE 2.1 mg/dL (0.55-1.02); ESTIMATED GFR 22 mL/min (>=60); GLUCOSE RANDOM 230 mg/dL (70-99); POTASSIUM,K 4.1 mmol/L (3.5-5.1); SODIUM,NA 141 mmol/L (136-145)
[2024-10-20 15:22] LABS: APPEARANCE,URINE CLEAR (CLEAR); BILIRUBIN,URINE NEGATIVE (NEGATIVE); COLOR,URINE LIGHT YELLOW (YELLOW); GLUCOSE,URINE NEGATIVE (NEGATIVE); KETONES,URINE NEGATIVE (NEGATIVE); LEUKOCYTE ESTERASE,URINE NEGATIVE (NEGATIVE); NITRITE,URINE NEGATIVE (NEGATIVE); OCCULT BLOOD,URINE NEGATIVE (NEGATIVE); PROTEIN,URINE 30 mg/dL (NEGATIVE); UROBILINOGEN,URINE 0.2 EU/dL (0.2)
[2024-10-20 15:25] LABS: BACTERIA,URINE NOT SEEN /HPF (NOT SEEN); HYALINE CASTS,URINE FEW; MUCUS,URINE NOT SEEN /LPF (NOT SEEN); RBC,URINE 0-5 /HPF (NOT SEEN); SQUAMOUS EPITHELIAL CELLS,UR OCCASIONAL /HPF (NOT SEEN); WBC,URINE NOT SEEN /HPF (NOT SEEN)
== END 2024-10-20 16:59 ==
LOC: VM.ED 13:31
DX: R41.0 Disorientation, unspecified (principal); R53.83 Other fatigue; T50.905A Adverse effect of unspecified drugs, medicaments and biological substances, initial encounter; S00.01XA Abrasion of scalp, initial encounter; I25.10 Atherosclerotic heart disease of native coronary artery without angina pectoris; I11.0 Hypertensive heart disease with heart failure; I50.9 Heart failure, unspecified; E11.9 Type 2 diabetes mellitus without complications; Z91.013 Allergy to seafood; Z88.0 Allergy status to penicillin; Z88.5 Allergy status to narcotic agent; Z88.6 Allergy status to analgesic agent; Z79.4 Long term (current) use of insulin; Z79.899 Other long term (current) drug therapy; Z79.84 Long term (current) use of oral hypoglycemic drugs; Z90.710 Acquired absence of both cervix and uterus; W19.XXXA Unspecified fall, initial encounter; Y93.89 Activity, other specified
CPT/HCPCS: 36415; 70450; 72125; 80053; 81001; 82140; 85025; 99284; 99285

== ENCOUNTER 2024-12-27 21:22 | Emergency (ER) | payer MEDICARE, OTHER ==
[2024-12-27] MEDS ORDERED: Sodium Chloride 0.9% 10 ML Syringe FLUSH PRN (21:30)
[2024-12-27 21:40] LABS: BASOPHILS PERCENT AUTO 0.3 % (0.2-1.2); EOSINOPHILS ABSOLUTE AUTO 0.2 x10^3/uL (0.0-0.5); EOSINOPHILS PERCENT AUTO 2.4 % (0.0-4.0); HEMATOCRIT 34.3 % (33.0-47.0); HEMOGLOBIN 11.6 g/dL (12.0-16.0); IMMATURE GRAN ABSOLUTE AUTO 0.03 x10^3/uL (0.00-0.07); LYMPHOCYTES PERCENT AUTO 9.9 % (25.0-50.0); MEAN CORPUSCULAR HEMOGLOBIN 30.9 pg (26.0-32.0); MEAN CORPUSCULAR HGB CONC 33.8 g/dL (32.0-36.0); MEAN CORPUSCULAR VOLUME 91.5 fL (78.0-93.0); MONOCYTES ABSOLUTE AUTO 0.9 x10^3/uL (0.0-0.8); NEUTROPHILS ABSOLUTE AUTO 7.6 x10^3/uL (1.8-7.7); NEUTROPHILS PERCENT AUTO 78.1 % (50.0-80.0); PLATELET COUNT,PLT 195 x10^3/uL (130-400); RED BLOOD CELL COUNT 3.75 x10^6/uL (4.00-5.50); WHITE BLOOD CELL COUNT,WBC 9.8 x10^3/uL (4.0-10.0)
[2024-12-27] MEDS: Lactated Ringers 1,000 ML IV ONE (21:40)
[2024-12-27 21:54] VITALS: PULSE 67
[2024-12-27 22:04] LABS: A/G RATIO 0.61; ALBUMIN 2.3 g/dL (3.4-5.0); BILIRUBIN TOTAL 0.3 mg/dL (0.2-1.0); CALCIUM 7.8 mg/dL (8.5-10.1); CREATININE 2.8 mg/dL (0.55-1.02); EST CRCL DRUG DOSING (CG) 11.76 mL/min; MAGNESIUM 2.3 mg/dL (1.8-2.4); PHOSPHORUS 4.7 mg/dL (2.6-4.7); PROTEIN TOTAL,TP 6.1 g/dL (6.4-8.2)
[2024-12-27] MEDS: Acetaminophen 325 MG Tab PO ONE (22:08)
[2024-12-27 22:11] LABS: ANION GAP 12.1 mmol/L (5-15)
[2024-12-27 22:12] LABS: POTASSIUM,K 6.1 mmol/L (3.5-5.1)
[2024-12-27 22:19] LABS: PROTHROMBIN TIME 10.9 SEC (9.6-12.0); PTT,PARTIAL THROMBOPLSTIN TIME 23.1 SEC (23.5-33.2)
[2024-12-27] MEDS ORDERED: 50% Dextrose in Water 50 ML Syringe IVPUSH PRN (22:25)
[2024-12-27] MEDS ORDERED: Glucagon,Human Recombinant 1 MG Vial IM PRN (22:25)
[2024-12-27] MEDS: 50% Dextrose in Water 50 ML Syringe IV ONE (23:02)
[2024-12-27] MEDS: Calcium Gluc in NaCl, ISO-OSM 1,000 MG in Premix Bag 1 BAG IV ONE (23:02)
[2024-12-27] MEDS: Insulin Regular, Human 100 Units/ML 10 ML Vial IV ONE (23:02)
[2024-12-27] MEDS: Ondansetron 4 MG/2 ML SDV IVPUSH ONE (23:28)
[2024-12-27] MEDS: ALPRAZolam 0.5 MG Tab PO ONE (23:29)
[2024-12-27] MEDS: Lactated Ringers 1,000 ML IV SCH (23:30)
[2024-12-28 00:20] LABS: BASOPHILS PERCENT AUTO 0.2 % (0.2-1.2); EOSINOPHILS ABSOLUTE AUTO 0.1 x10^3/uL (0.0-0.5); EOSINOPHILS PERCENT AUTO 0.9 % (0.0-4.0); HEMATOCRIT 31.5 % (33.0-47.0); HEMOGLOBIN 10.3 g/dL (12.0-16.0); IMMATURE GRAN ABSOLUTE AUTO 0.03 x10^3/uL (0.00-0.07); LYMPHOCYTES ABSOLUTE AUTO 1.1 x10^3/uL (1.0-4.8); LYMPHOCYTES PERCENT AUTO 9.1 % (25.0-50.0); MEAN CORPUSCULAR HEMOGLOBIN 29.9 pg (26.0-32.0); MEAN CORPUSCULAR HGB CONC 32.7 g/dL (32.0-36.0); MEAN CORPUSCULAR VOLUME 91.6 fL (78.0-93.0); MONOCYTES ABSOLUTE AUTO 0.8 x10^3/uL (0.0-0.8); MONOCYTES PERCENT AUTO 6.7 % (2.0-11.0); NEUTROPHILS PERCENT AUTO 82.8 % (50.0-80.0); PLATELET COUNT,PLT 203 x10^3/uL (130-400); RED BLOOD CELL COUNT 3.44 x10^6/uL (4.00-5.50)
[2024-12-28 01:05] LABS: ANION GAP 14.1 mmol/L (5-15); CALCIUM 8.3 mg/dL (8.5-10.1); CREATININE 2.7 mg/dL (0.55-1.02); EST CRCL DRUG DOSING (CG) 12.2 mL/min; POTASSIUM,K 5.1 mmol/L (3.5-5.1)
[2024-12-28 05:18] VITALS: BP 107/49
== END 2024-12-28 01:06 | disposition short-term general hospital (02) ==
LOC: SUPCPDRO 21:22 → VM.ED 21:22
DX: K92.2 Gastrointestinal hemorrhage, unspecified (principal); I13.0 Hypertensive heart and chronic kidney disease with heart failure and stage 1 through stage 4 chronic kidney disease, or unspecified chronic kidney disease; N18.4 Chronic kidney disease, stage 4 (severe); I50.9 Heart failure, unspecified; N17.9 Acute kidney failure, unspecified; E87.5 Hyperkalemia; I25.10 Atherosclerotic heart disease of native coronary artery without angina pectoris; E78.00 Pure hypercholesterolemia, unspecified; E11.22 Type 2 diabetes mellitus with diabetic chronic kidney disease; Z88.1 Allergy status to other antibiotic agents; Z88.0 Allergy status to penicillin; Z88.8 Allergy status to other drugs, medicaments and biological substances; Z88.7 Allergy status to serum and vaccine; Z79.82 Long term (current) use of aspirin; Z79.899 Other long term (current) drug therapy; Z79.84 Long term (current) use of oral hypoglycemic drugs; Z79.4 Long term (current) use of insulin; Z86.16 Personal history of COVID-19
CPT/HCPCS: 36415; 36430; 74176; 80048; 80053; 82728; 82947; 83540; 83605; 83735; 84100; 84484; 85025; 85610; 85730; 86850; 86900; 86901; 86920; 86922; 93005; 93010; 96361; 96374; 96375; 99284; 99285; A9270; G0328; J2405; J7120; P9016; J3490